=== PATIENT | female | born 1975 | race Caucasian/White ===

== ENCOUNTER 2024-12-13 09:51 | Outpatient (REF) | payer OTHER, SELFPAY ==
--- OUTSIDE RECORDS SUMMARY | 2024-12-13 11:56 | XMS_ITS | Continuity of Care Document ---
Author Organization [facility], , [facility], OFFICE Address [address] [place] [address] Care Team Providers Care Sky Diver Name Role Phone PHILIP ELLIOTT OTHER Unavailable ELLY DC Primary Care Provider [phone] FAHAD BROOKE Soil Fertility Extension Specialist Assessment No assessment recorded. Plan of Treatment Reminders Order Date Submit Date Provider Last Modified By Organization Details Last Modified Time Details Appointments LAB Follow-Up 2024 08:30A M [facility] Lab Not available Not available Not available Wellness Visit 30 2024 09:00A M ZOYA Stinson Not available Not available Not available Lab None recorded. Referral None recorded. Procedures None recorded. Surgeries None recorded. Imaging None recorded. Medication Orders None recorded. Patient TargetsNo targets recorded. Patient InstructionsNo instructions recorded. Reason for Referral None Reported. Problems Name Problem SNOMED Code Status Onset Date Resolution Date Notes Provider Name and Address Organization Details Recorded Time Menorrha ashley [id number] Completed 12/30/2023 ZOYA Stinson [address] [place] [address], [phone], [facility] 4 07:53:50 Recurren t urinary tract infectio n 449046478 Active 2023 ZOYA Stinson [address] [place] [address], [address], [facility] 4 07:55:06 Neutrope richie disorder 514267872 Active Not Available [facility] 3 03:12:28 Recurren t major depressi ve episodes 545614950 Active THEODORE Maria, [facility] 4 09:04:55 Cough 64793213 Completed 200709/21/2013 Not Available [facility] 3 02:01:08 Fever 502029572 Completed 200709/21/2013 Not Available [facility] 3 02:02:42 Premenst rual tension syndrome 26360858 Completed 12/30/2023 ZOYA Stinson [address] [place] [address], [phone], [facility] 4 07:54:08 Shoulder pain 14424125 Completed 09/21/2013 Not Available [facility] 3 02:01:02 Increase d frequenc y of urinatio n 552247639 Completed 200709/21/2013 Not Available [facility] 3 02:02:51 Measurem ent finding outside referenc e range 503702106 Completed 200709/21/2013 Not Available [facility] 3 02:03:25 Allergic rhinitis 55376550 Active 2005 Elly Dc MD [address] [place] [address], [address], [facility] 4 09:48:38 Left lower quadrant pain 708830790 Completed 200409/21/2013 Not Available [facility] 3 02:03:29 Hip pain 68842201 Completed 09/21/2013 Not Available [facility] 3 02:01:32 Vitamin D deficien cy 62098288 Active Not Available [facility] 3 03:12:28 Joint pain in ankle and foot Completed 09/21/2013 Not Available [facility] 3 02:01:26 Disorder of skeletal system 99387893 Completed 09/21/2013 Not Available [facility] 3 02:01:39 Atopic dermatit is 01892706 Active 2004 Not Available [facility] 3 03:12:28 On examinat ion - a rash Completed 200309/21/2013 Not Available [facility] 3 02:00:49 Thromboc ytopenic disorder 381132667 Active 2007 Lyn izaguirre [facility] 6 15:55:33 Osteopor osis 33361550 Active 2006 Most recent BMD with osteope makayla. Repeat due 05/2028 ZOYA Stinson [address] [place] [address], [address], [facility] 4 07:52:18 Systemic lupus erythema tosus 95381385 Active 2003 Lyn izaguirre [facility] 6 10:57:44 Female genital organ symptoms 553369372 Completed 200409/21/2013 Not Available [facility] 3 02:03:07 Osteocho ndropath y 28689612 Active Not Available [facility] 3 03:12:28 Acute maxillar y sinusiti s 84457836 Completed 200509/21/2013 Not Available [facility] 3 02:01:43 Pain in wrist 26419627 Completed 09/21/2013 Not Available [facility] 3 02:02:23 Otogenic otalgia 52642548 Completed 200309/21/2013 Not Available [facility] 3 02:03:18 Malaise and fatigue 775938412 Completed 200709/21/2013 Not Available [facility] 3 02:00:18 Cyst of ovary 37322789 Completed 200712/30/2023 ZOYA Stinson [address] [place] [address], [address], [facility] 4 07:52:35 Lupus erythema tosus 836248282 [facility] 08:06[facility]02 Problem Notes None recorded. Procedures Surgical History Date Name Laterality Status Provider Name and Address Organization Details Recorded Time 08/08/20 19 29213: Therapeutic Exercise completed Philip Payne, PT [address] [place], [address], [facility] 08/08/2019 10:07:38 08/08/20 19 Treatment and Advice completed Philip Payne, PT [address] [place], [address], [facility] 08/08/2019 10:07:54 08/01/20 19 60462: Therapeutic Exercise completed Philip Payne, PT [address] [place], [address], [facility] 08/02/2019 21:23:15 08/01/20 19 68370: Manual Therapy completed Philip Payne, PT [address] [place], [address], [facility] 08/02/2019 21:23:45 08/01/20 19 Treatment and Advice completed Philip Payne, PT [address] [place], [address], [facility] 08/01/2019 17:17:40 07/18/20 19 51627: Therapeutic Exercise completed Philip Payne, PT [address] [place], [address], [facility] 07/19/2019 08:34:24 07/18/20 19 Treatment and Advice completed Philip Payne, PT [address] [place], [address], [facility] 07/18/2019 17:14:40 07/06/20 19 76566: Therapeutic Exercise completed Philip Payne, PT [address] [place], [address], [facility] 07/06/2019 12:38:34 07/06/20 19 Treatment and Advice completed Philip Payne, PT [address] [place], [address], [facility] 07/06/2019 12:37:47 06/30/20 19 87127: Therapeutic Exercise completed Philip Payne, PT [address] [place], [address], [facility] 06/30/2019 11:32:04 06/30/20 19 Treatment and Advice completed Philip Payne, PT [address] [place], [address], [facility] 06/30/2019 10:14:16 06/22/20 19 59854: Therapeutic Exercise completed Philip Payne, PT [address] [place], [address], [facility] 06/22/2019 14:04:32 06/22/20 19 08390: Manual Therapy completed Philip Payne, PT [address] [place], [address], [facility] 06/22/2019 14:06:43 06/16/20 19 Physical Activity Counselling completed Philip Payne, PT [address] [place], [address], [facility] 06/17/2019 06:57:26 06/16/20 19 30365: PT Eval Low Complexity completed Philip Payne, PT [address] [place], [address], [facility] 06/17/2019 06:57:26 01/25/20 19 05703: Therapeutic Exercise completed Philip Payne, PT [address] [place], [address], [facility] 01/24/2019 14:29:08 01/25/20 19 Treatment and Advice completed Philip Payne, PT [address] [place], [address], [facility] 01/24/2019 14:25:22 01/05/20 19 57613: Therapeutic Exercise completed Philip Payne, PT [address] [place], [address], [facility] 01/04/2019 09:12:51 01/05/20 19 Treatment and Advice completed Philip Payne, PT [address] [place], [address], [facility] 01/04/2019 09:32:13 12/14/19 19 07274: Therapeutic Exercise completed Philip Payne, PT [address] [place], [address], [facility] 12/14/2018 09:45:05 12/14/19 19 Treatment and Advice completed Philip Payne, PT [address] [place], [address], [facility] 12/14/2018 09:31:33 12/01/19 19 Physical Activity Counselling completed Philip Payne, PT [address] [place], [address], [facility] 12/01/2018 11:03:33 12/01/19 19 16323: PT Eval Low Complexity completed Philip Payne, PT [address] [place], [address], [facility] 12/01/2018 11:03:33 12/01/19 19 Treatment and Advice completed Philip Payne, PT [address] [place], [address], [facility] 12/01/2018 11:06:11 04/07/20 17 POC Urinalysis Testing completed Judy Erazo [facility] 04/07/2017 10:15:39 03/31/20 17 POC Urinalysis Testing completed Kaitlin Paulson [facility] 03/31/2017 16:33:48 10/21/20 16 53289: Therapeutic Exercise completed Philip Payne, PT [address] [place], [address], [facility] 10/22/2016 06:43:34 10/21/20 16 Treatment and Advice completed Philip Payne, PT [address] [place], [address], [facility] 10/21/2016 10:35:08 09/30/20 16 20271: Therapeutic Exercise completed Philip Payne, PT [address] [place], [address], [facility] 09/30/2016 10:41:11 09/30/20 16 Treatment and Advice completed Philip Payne, PT [address] [place], [address], [facility] 09/30/2016 10:39:47 09/17/20 16 88649: PT Evaluation completed Philip Payne, PT [address] [place], [address], [facility] 09/17/2016 10:02:58 09/17/20 16 Physical Activity Counselling completed Philip Payne, PT [address] [place], [address], [facility] 09/17/2016 10:03:08 09/17/20 16 Treatment and Advice completed Philip Payne, PT [address] [place], [address], [facility] 09/17/2016 10:39:26 06/03/20 16 20694: Therapeutic Exercise completed Philip Payne, PT [address] [place], [address], [facility] 06/03/2016 09:38:05 06/03/20 16 58163: Manual Therapy completed Philip Payne, PT [address] [place], [address], [facility] 06/03/2016 09:38:13 05/13/20 16 50604: Therapeutic Exercise completed Philip Payne, PT [address] [place], [address], [facility] 05/13/2016 09:13:17 04/24/20 16 39831: PT Evaluation completed Philip Payne, PT [address] [place], [address], [facility] 04/24/2016 09:39:32 04/23/20 12 Greater Trochanteric Bursa Steroid Injection completed Elly Dc MD [address] [place], [address], [facility] 04/23/2012 08:27:31 05/30/20 10 Treatment and Advice completed Kitty Verma [address] [place], [address], [facility] 05/30/2010 18:26:06 Imaging Results None recorded. Procedure Notes None recorded. Medical Equipment None Reported. Allergies Allergen ID Allergen Name Allergen Category Reaction Reaction Severity Criticality Documentation Date Start Date Code Code System Note Provider Name and Address Organization Details Recorded Time 1393 aspirin medicatio n rash Not available Not available 12/12/2008 1191 RxNorm ??? Not Available [facility] 1 06:05:20 Medications Name Sig Start Date Stop Date Status Note LastModified by Organization Details LastModified Time prednison e 10 mg tabs 07/27 completed Not Available Not Available Not Available tizanidin e hydrochlo ride 4 mg tabs 07/27 completed Not Available Not Available Not Available betametha sone dipropion ate 0.05 % crea 06/15 completed duplicat e Not Available Not Available Not Available bupropion hydrochlo ride er (sr) 150 mg tb12 11/09 completed Not Available Not Available Not Available cyclobenz aprine hydrochlo ride 10 mg tabs 07/27 completed Not Available Not Available Not Available bupropion hcl sr 150 mg tb12 11/12 completed Not Available Not Available Not Available ibuprofen 800 mg tabs 07/27 completed Not Available Not Available Not Available hydroxych loroquine sulfate 200 mg tabs 11/09 completed Not Available Not Available Not Available gabapenti n 100 mg caps 07/27 completed Not Available Not Available Not Available fluconazo le 150 mg tabs 11/09 completed Not Available Not Available Not Available naproxen 500 mg tabs 07/27 completed Not Available Not Available Not Available prednison e 1 mg tabs Takin 2.5 tabs a day 03/12 completed Not Available Not Available Not Available cyclobenz aprine 10 mg tablet TAKE 1 TABLET BY MOUTH EVERYDAY AT BEDTIME 11/09 completed Not Available Not Available Not Available amoxicill in 500 mg capsule TAKE ONE CAPSULE BY MOUTH EVERY 12 HOURS FOR 7 DAYS 02/28 completed Not Available Not Available Not Available fluconazo le 100 mg tablet TAKE 2 TABLETS BY MOUTH FOR 1 DAY THEN TAKE 1 DAILY FOR 9 DAYS 07/18 completed Not Available Not Available Not Available clotrimaz ole 10 mg sae ALLOW 1 SAE TO DISSOLVE SLOWLY IN THE MOUTH 5 TIMES DAILY FOR 14 DAYS active Not Available Not Available No t Available bupropion HCl SR 150 mg tablet,12 hr sustained -release TAKE 1 TABLET BY MOUTH EVERY DAY DIRECTED 04/17 completed Not Available Not Available Not Available nystatin 100,000 unit/mL oral suspensio n TAKE 5ML BY MOUTH 4 TIMES A DAY FOR 7 DAYS 12/11 completed Not Available Not Available Not Available Drisdol 1,250 mcg (50,000 unit) capsule Take 1 capsule every week by oral route. 2009 active Not Available Not Available Not Avai lable ibuprofen 800 mg tablet TAKE 1 TABLET BY MOUTH 3 TIMES A DAY WITH MEALS 07/27 completed Not Available Not Available Not Available Lidocaine Viscous 2 % mucosal solution Take 15 mL every 3 hours by oral route as needed for 7 days. 09/18 completed Not Available Not Available Not Available tizanidin e 4 mg tablet TAKE 1 TABLET BY MOUTH EVERY 6 HOURS NEEDED 07/27 completed Not Available Not Available Not Available fluconazo le 150 mg tablet Take 1 tablet by oral route. 10/02 completed finished course 08/11/23 Not Available Not Available Not Available benzonata te 200 mg capsule TAKE ONE CAPSULE BY MOUTH 3 TIMES A DAY NEEDED 03/31 completed Not Available Not Available Not Available citalopra m 10 mg tablet Take 1 tablet every day by oral route. 2009 active Not Available Not Available Not Avai lable prednison e 20 mg tablet TAKE 1 TABLET BY MOUTH EVERY DAY WITH FOOD OR MILK 12/11 completed Not Available Not Available Not Available alendrona te 70 mg tablet Take 1 tablet every week by oral route. 2010 active Not Available Not Available Not Avai lable prednison e 5 mg tablet TAKE DIRECTED WITH FOOD OR MILK (2 TABS DAILY, DECREASE BY 1/2 TAB EVERY 2 WEEKS DIRECTED ) 12/11 completed Not Available Not Available Not Available clobetaso l 0.05 % topical cream Apply a thin layer by topical route 2 times per day to the affected area(s) 11/02 completed Not Available Not Available Not Available itraconaz ole 10 mg/mL oral solution Take 20 mL every day by oral route for 7 days. 01/30 completed Not Available Not Available Not Available triamcino lone acetonide 0.5 % topical ointment APPLY A THIN LAYER TO THE AFFECTED AREA(S) BY TOPICAL ROUTE 1 TIMES PER DAY AT NIGHT X 14 DAYS ONLY 07/18 completed prn Not Available Not Available Not Available ciproflox acin 250 mg tablet TAKE 1 TABLET BY MOUTH EVERY 12 HOURS UNTIL FINISHED 06/11 completed Not Available Not Available Not Available sulfameth oxazole 800 mg-trimet hoprim 160 mg tablet TAKE 1 TABLET BY MOUTH EVERY 12 HOURS FOR 7 DAYS 12/19 completed Not Available Not Available Not Available amoxicill in 500 mg tablet Take 1 tablet 3 times a day by oral route for 10 days. 05/26 completed Not Available Not Available Not Available meloxicam 7.5 mg tablet Take 1 tablet every day by oral route. 03/10 completed PRN Not Available Not Available Not Available oxycodone -acetamin ophen 5 mg-325 mg tablet active Not Available Not Available Not Available terbinafi ne HCl 250 mg tablet TAKE 1 TABLET BY MOUTH EVERY DAY FOR 10 DAYS 11/10 completed Not Available Not Available Not Available propranol ol 10 mg tablet TAKE 2 TABLETS BY MOUTH TWICE A DAY 12/11 completed Not Available Not Available Not Available methenami ne hippurate 1 gram tablet TAKE 1 TABLET BY MOUTH TWICE A DAY active Not Available Not Available No t Available Claritin- D 24 Hour 10 mg-240 mg tablet,ex tended release Take 1 tablet every day by oral route. 2018 active 12 hour- PRN Not Available Not Available Not Available prednison e 1 mg tablet TAKE 1 TABLET BY MOUTH EVERY DAY 04/17 completed Not Available Not Available Not Available cephalexi n 500 mg capsule TAKE 1 CAPSULE BY MOUTH TWICE A DAY FOR 7 DAYS 12/19 completed STARTED YESTERDA Y 10/28/22 JMM/ Not Available Not Available Not Available ferrous sulfate 325 mg (65 mg iron) tablet TAKE 1 TABLET(S ) EVERY DAY BY ORAL ROUTE. active Not Available Not Available No t Available nystatin 100,000 unit/gram topical cream APPLY TO THE AFFECTED AREA(S) BY TOPICAL ROUTE 2 TIMES PER DAY 12/12 completed Not Available Not Available Not Available Rituxan 10 mg/mL concentra te,intrav enous Inject by intraven ous route. 09/18 completed Not Available Not Available Not Available Anaprox DS 550 mg tablet 2007 active Take 1.00 tabs twice daily as needed Not Available Not Available Not Available bupropion HCl 75 mg tablet TAKE 1 TABLET BY MOUTH EVERY DAY FOR 30 DAYS 04/17 completed Not Available Not Available Not Available betametha sone dipropion ate 0.05 % topical cream APPLY A THIN LAYER TO THE AFFECTED AREA(S) BY TOPICAL ROUTE ONCE DAILY 07/27 completed Not Available Not Available Not Available hydroxyzi ne HCl 25 mg tablet TAKE 1 TO 2 TABLETS BY MOUTH EVERY DAY AT BEDTIME NEEDED FOR ITCH 07/18 completed haven't needed yet Not Available Not Available Not Available gabapenti n 100 mg capsule TAKE 1 CAPSULE BY MOUTH EVERY DAY AT BEDTIME FOR 7 DAYS MAY INCREASE TO 2 CAPSSULE IF NO IMPROVEM ENT active Not Available Not Available No t Available nystatin 100,000 unit/gram topical powder APPLY TO AFFECTED AREA TWICE A DAY completed Not Available Not Available Not Available hydroxych loroquine 200 mg tablet TAKE 1 & 1/2 TABLET BY MOUTH EVERY DAY active Not Available Not Available No t Available estradiol 0.01% (0.1 mg/gram) vaginal cream not using this yet 07/18 completed Not Available Not Available Not Available methylpre dnisolone 4 mg tablets in a dose pack 12/12 completed Take 1.00 tabs daily Not Available Not Available Not Available ketoconaz ole 2 % topical cream APPLY TOPICALL Y TO AFFECTED AREA EVERY DAY FOR 30 DAYS completed PRN Not Available Not Available Not Available fluticaso ne propionat e 50 mcg/actua tion nasal spray,sully pension 1 SPRAY EACH NOSTRIL EVERY DAY 09/29 completed Not Available Not Available Not Available itraconaz ole 100 mg capsule TAKE 2 CAPSULES BY MOUTH EVERY DAY FOR 14 DAYS active Not Available Not Available No t Available naproxen 500 mg tablet TAKE 1 TABLET BY MOUTH TWICE A DAY NEEDED 04/17 completed Not Available Not Available Not Available amoxicill in 875 mg-potass ium clavulana te 125 mg tablet TAKE 1 TABLET(S ) EVERY 12 HOURS BY ORAL ROUTE FOR 10 DAYS. 03/31 completed Not Available Not Available Not Available Actonel 35 mg tablet Take 1 tablet every week by oral route for 90 days. 2008 active To [facility] Not Available Not Available Not Available Denta 5000 Plus 1.1 % cream 09/16 completed Not Available Not Available Not Available escitalop alvarez 10 mg tablet TAKE 1 TABLET BY MOUTH EVERY DAY 12/12 completed Not Available Not Available Not Available Vitamin D3 25 mcg (1,000 unit) capsule 1 po qd 09/29 completed pt taking 2000unit Not Available Not Available Not Available cyclobenz aprine 5 mg tablet TAKE 1 TO 2 TABLETS BY MOUTH 3 TIMES A DAY FOR 7 DAYS 11/07 completed Not Available Not Available Not Available escitalop alvarez 5 mg tablet TAKE 1 TABLET BY MOUTH EVERY DAY 01/17 completed Not Available Not Available Not Available calcium 315 mg (as citrate)- vitamin D3 5 mcg (200 unit) tablet active Not Available Not Available Not Available nitrofura ntoin monohydra te/macroc rystals 100 mg capsule TAKE 1 CAPSULE BY MOUTH EVERY DAY NEEDED 12/19 completed Not Available Not Available Not Available chlorhexi dine gluconate 0.12 % mouthwash Place 15 mL twice a day by mucous membrane route. 12/12 completed Not taking Not Available Not Available Not Available iron 11/02 completed every 3 days Not Available Not Available Not Available rituximab active Not Available Not Yudith ilable Not Available multivita min active qd Not Available Not Available Not Available Calcium 500 09/16 completed Not Available Not Available Not Available Calcium Magnesium plus D 01/24 completed Not Available Not Available Not Available blood pressure test kit-mediu m cuff USE DIRECTED 04/23 completed Not Available Not Available Not Available Vitamin D3 50 mcg (2,000 unit) capsule Take 1 capsule every day by oral route. active Not Available Not Available No t Available nitrofura ntoin 100 mg tablet Take 1 tablet every day by oral route as needed. 04/17 completed prescrib ed by [facility] Not Available Not Available Not Available Claritin- D 11/07 completed Not Available Not Available Not Available Rhinocort Allergy 32 mcg/actua tion nasal spray Take 1 spray twice a day by nasal route. 12/01 completed PRN Not Available Not Available Not Available Paxlovid 300 mg (150 mg x 2)-100 mg tablets in a dose pack TAKE 2 TABLETS (NIRMATR RAS) AND TAKE 1 TABLET (RITONAV IR) BY MOUTH TWICE A DAY FOR 5 DAYS 01/01 completed Not Available Not Available Not Available Vitals Date Recorded Body height Body mass index (BMI) Body weight Oxygen saturation Oxygen saturation in Arterial blood by Pulse oximetry Heart rate Body temperature Systolic blood pressure Diastolic blood pressure Provider Name and Address Organization Details Last Updated DateTime 5 152.4 cm 25.4 kg/m2 78334.0 1 g 98 % 98 % 99 /min 98.1 [degF] 110 mm[Hg] 66 mm[Hg] Tara Teran [facility] 5 16:23:59 Social History Question Answer Notes LastModified by Organizat ion Details LastModified Time Tobacco Smoking Status Never Smoker MOISES Garcia, [facility] 12/19/2022 09:11:24 What Is Your Level Of Alcohol Consumption? Occasional 0-1 Drink A Week Information not available 12/11/2020 Do You Wear A Helmet When Biking? Yes Information not available 12/12/2021 What Is Your Level Of Caffeine Consumption? Occasional Information not available 12/11/2020 How Much Tobacco Do You Chew? None [email or web address] Information not available 09/18/2011 Are You Currently Employed? Yes Information not available 12/12/2021 What Type Of Diet Are You Following? VEGETARIAN Gluten Free Fish, Chicken Pork. [email or web address] Information not available 12/19/2022 Which Illicit Or Recreational Drugs Have You Used? None [email or web address] Information not available 09/07/2012 Do You Or Have You Ever Used E-cigarettes Or Vape? Never Used Electronic Cigarettes [email or web address] Information not available 03/25/2020 Education Post Graduate [email or web address] Information not available 12/01/2022 What Is The Highest Grade Or Level Of School You Have Completed Or The Highest Degree You Have Received? [id number] Information not available 12/12/2021 What Is Your Occupation? [employer] Information not available 09/29/2017 Have There Been Any Changes To Your Family Or Social Situation? No Information not available 12/31/2023 How Many Days In The Past Year Have You Had A Heavy Drinking Consumption (4+ Female, 5+ Male)? 0 [email or web address] Information not available 12/01/2022 Are There Any Guns Present In Your Home? No Information not available 12/12/2021 Do You Use Insect Repellent Routinely? Yes Information not available 12/12/2021 Live Alone Or With Others? With Others [email or web address] Information not available 12/01/2022 Marital Status [email or web address] Informatio n not available 12/01/2022 Mosquito Repellent Used Routinely Yes [email or web address] Information not available 12/01/2022 What Was The Date Of Your Most Recent Tobacco Screening? 11/23/2024 [email or web address] Information not available 11/23/2024 How Many Children Do You Have? 0 [email or web address] [id number] Information not available 09/18/2011 What Is Your Relationship Status? Information not available 12/31/2023 Do You Use Your Seat Belt Or Car Seat Routinely? Yes Information not available 12/12/2021 Seat Belts Used Routinely Yes [email or web address] Information not available 12/01/2022 Smoke Alarm In Home Yes [email or web address] Information not available 12/01/2022 Do You Have Smoke And Carbon Monoxide Detectors In Your Home? Yes Information not available 12/12/2021 Are You Passively Exposed To Smoke? No Information not available 12/12/2021 Do You Or Have You Ever Used Smokeless Tobacco? Never Used Smokeless Tobacco Information not available 12/01/2019 How Much Tobacco Do You Smoke? No [email or web address] Information not available 09/18/2011 General Stress Level Medium [email or web address] Information not available 12/01/2022 Do You Use Any Illicit Or Recreational Drugs? No Information not available 12/12/2021 Do You Use Sunscreen Routinely? Yes [email or web address] Information not available 09/18/2011 Do You Or Have You Ever Used Any Other Forms Of Tobacco Or Nicotine? No [email or web address] Information not available 12/01/2022 Sex: Female Functional Status Question Answer Note LastModified by Organization D etails LastModified Time What is your exercise level? Moderate Information not available 12/12/2021 Mental Status None recorded. Family History Relationship Description Onset Age of this Age Resolved Age Notes LastModified by Organization Details LastModified Time Mother Osteoporosis mgump Not availab le 03/23/2015 21:07:25 Father Diabetes mellitus mgump Not available 2014 21:07:25 Father Malignant neoplasm of urinary bladder [email or web address] Not available 2022 09:30:11 Sister Benign hypertension [email or web address] Not available 09:30:11 Medical History Condition Response HEMATOLOGIC Y Osteopenia Y Systemic Lupus E Y Gynecological History Statement/Question Response Menses Monthly N Current Control Method Partner Vas ectomy Date of LMP 07/01/2021 LMP Approximate Obstetrics History GPAL:G 0 P 0 0 0 0 Immunizations Vaccine Type Date Status Note Provider Nam e and Address Organization Details Recorded Time Tdap 3 completed Not Available [facility] 11/19/2019 02:32:25 Influenza, split virus, trivalent, preservative 0 completed Not Available [facility] 11/19/2019 02:33:03 Influenza, split virus, quadrivalent, PF 7 completed Not Available [facility] 11/19/2019 02:22:08 COVID-19, mRNA, LNP-S, PF, 30 mcg/0.3 mL dose 1 completed Carmita Oliveros LPN [facility], [facility] 02/04/2021 07:38:08 COVID-19, mRNA, LNP-S, PF, 30 mcg/0.3 mL dose 1 completed MOISES Wang, [facility] 07/08/2024 08:27:06 Tdap 3 completed ZOYA Stinson [address] [place] [address], [id number], [facility] [place]2023 14:36:47 COVID-19, mRNA, LNP-S, PF, 30 mcg/0.3 mL dose 1 completed MOISES Wang, [facility] 07/08/2024 08:27:06 COVID-19, mRNA, LNP-S, PF, 30 mcg/0.3 mL dose [facility] 08:27:06 COVID-19, mRNA, LNP-S, PF, 30 mcg/0.3 mL dose 2 completed [facility]all[facility]inton [facility] 08/26/2022 15:48:26 COVID-19, mRNA, LNP-S, bivalent, PF, 10 mcg/0.2 mL 3 completed Pascale Cade [facility] 03/16/2023 10:44:24 zoster recombinant 3 completed Luisa Conroy [facility] 07/08/2024 08:27:06 zoster recombinant 3 [facility]08[facility]2024 08:27:06 COVID-19 mRNA, bivalent, original/Omicron BA.1, Non-US Vaccine (Spikevax Bivalent), Moderna 3 completed Anette Alfaro [facility] 04/17/2023 08:33:05 zoster recombinant 3 [facility]/08/2024 08:27:06 COVID-19, mRNA, LNP-S, PF, 30 mcg/0.3 mL dose, cici-sucrose 2 [facility]/08/2024 08:27:06 COVID-19, mRNA, LNP-S, bivalent, PF, 50 mcg/0.5 mL or 25mcg/0.25 mL dose 3 [facility]/08/2024 08:27:06 COVID-19, mRNA, LNP-S, bivalent, PF, 30 mcg/0.3 mL dose 2 [facility]/08/2024 08:27:06 COVID-19, mRNA, LNP-S, PF, cici-sucrose, 30 mcg/0.3 mL 3 completed Luisa Rafiq [facility]/08/2024 08:27:06 SARS-COV-2 (COVID-19) vaccine, UNSPECIFIED 4 completed Luisa Rafiq [facility] 07/08/2024 08:27:32 Past Encounters Encounter ID Performer Location Encounter Start Date Encounter Closed Date Diagnosis/Indication Diagnosis SNOMED-CT Code Diagnosis ICD10 Code Diagnosis Note [id number] DO CASSIDY NAIDU, [facility], [address] [place] [address] 11/23/2024 16:15:11 11/25/2024 08:47:05 Burst blood vessel [id number] R58 right thumb pain and discolorat ion likely from pressure applicatio n when changing wires on a pottery Localized digital hemorrhage Sudden thumb swelling and discolorat ion likely from small vessel rupture. Condition improving. Lupus and ITP may contribute to capillary fragility, but platelet count normal.- Apply ice for 15 minutes, three times daily.- Elevate hand, gently massage thumb.- Apply moisturize r to thumb.- Avoid direct pressure.- Monitor for worsening symptoms or systemic signs. 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 Normal platelet count. No active ITP. Normal kidney function.- Monitor platelet counts and lupus activity.- Follow up with rheumatdiana pastor on December 13. Health Concerns Section Related Observation LastModified by Organization Detai ls LastModified Time None Recorded Concern Status LastModified by Organization Details LastModified Time None Recorded Payers Encounter Date Sequence Insurance Name Policy Number Policy Umaña Covered Member ID Umaña Member ID Guarantor Name 11/23/2024 1 [facility] [place] [id number] Brionna Champion [id number] Brionna Champion Notes Date Note Type Note Provider Name and Address Organization Details Recorded Time 11/23/2024 text/html 11/23/24- Pt here today for a same day visitstated noticed, swelling, pressure, skin discolorationno known injuries. History of Present IllnessThe patient, with a history of lupus and ITP, presents with sudden swelling and discoloration of their finger. The finger turned black and felt numb initially, but the color has since improved to purple and the numbness has resolved. 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 They deny any new medications and have no known allergies except to aspirin. 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 The patient's last platelet count in August of the previous year was 315, which is within normal range. ANNA VOGEL, DO [address] [place] [address], [phone], [facility] [place] 11/24/2024 22:55:01 OBGyn Episode No OBEpisode recorded.
--- OUTSIDE RECORDS SUMMARY | 2024-12-13 11:57 | XMS_ITS | Data Portability ---
Author Organization [facility], , [facility] Address [address] [place] [address] Care Team Providers Care Automobile Rental Clerk Name Role Phone PHILIP ELLIOTT OTHER Unavailable ELLY DC Primary Care Provider FAHAD BROOKE Napper Grinder Assessment Encounter Date Assessment Date Assessment LastModified by Organization Details LastModified Time 11/10/2023 11/10/2023 My total time spent today documenting and providing coordinated care for this patient is 31 minutes I have reviewed, collected, and updated relevant history and performed a physical exam. I have coordinated care with IBH, Nutrition, Specialist and or family members I have reviewed labs, x-rays and/or specialty notes I have interpreted new studies including EKG, Holter and/or xray Below is my assessment and plan for this patient? s care today. moderate, with new meds started persistent and worsening chronic problem [email or web address] Not available 11/10/2023 10:38:23 Plan of Treatment Reminders Order Date Submit Date Provider Last Modified By Organization Details Last Modified Time Details Appointments LAB Follow-Up 2024 08:30A M [facility] Lab Not available Not available Not available Wellness Visit 30 2024 09:00A M ZOYA Stinson Not available Not available Not available Lab rapid strep group A, throat 2023 024 [facility], [address] [facility], [place], [address], 06/24/2024 13:01:52 Referral physical therapist referral 2023 024 [email or web address] [facility], [address], [place], [address], 12/31/2023 13:44:17 Procedures None recorded. Surgeries None recorded. Imaging MAMMO, screening , tomosynth esis, bilateral - 2nd Look Consult/D iag Mammo/US Breast/Gu ided Asp/Breas t Bx/Clip Placement , as clinicall y indicated . 2023 024 [facility] (Imaging), [address], [place], [address], 03/15/2024 10:51:22 XR, hip + pelvis, unilatera l, 2 or 3 view 2023 024 [facility] (Im[facility]), [address], [place], [address], 01/12/2024 10:07:10 bone density 2023 024 [facility], All Locations, [place], [address], 05/09/2024 16:35:22 Medication Orders hydroxyzi ne HCl 25 mg tablet 2023 024 [facility]acy #[id number], [address] [place], [address], 07/18/2024 10:39:25 triamcino lone acetonide 0.5 % topical ointment 2023 024 [facility]acy #0447, [address] [place], [address], 07/18/2024 10:39:50 fluconazo le 100 mg tablet 2023 024 dcaer [facility]/Pharmacy #[id number], [address] [place], [address], 07/18/2024 10:38:55 itraconaz ole 100 mg capsule 2023 024 [facility]acy #[id number], [address] [place], [address], 07/18/2024 10:55:44 Patient TargetsNo targets recorded. Patient Instructions Encounter Date Encounter Id Patient Instructions Last Modified By Organization Details Last Modified Time 12/31/2023 [id number] well visit, wome n 50 to 65: care instructions anika Not available 12/31/2023 13:06:19 Reason for Referral Physical Therapist Referral for Pain in right hip joint Referring Physician: Oliva Ho, Family Medicine, Encounter Date: 12/31/2023 Results Created Date Observation Date Name Description Value Unit Range Abnormal Flag Note LastModifiedBy Organization Detail LastModifiedTime 05/12/20 24 05/12/2024 CBC WBC 3.15 K/? ? ?L 3.98-1 0.04 low Not Available [address], [address], 05/12/2024 11:12:10 05/12/20 24 05/12/2024 CBC RBC 4.01 M/? ? ?L 3.93-5 .22 Not Available [address], [address], 05/12/2024 11:12:10 05/12/20 24 05/12/2024 CBC HGB 12.3 g/dL 11.2-1 5.7 Not Available [address], [address], 05/12/2024 11:12:10 05/12/20 24 05/12/2024 CBC HCT 36.6 % 34.1-4 4.9 Not Available [address], [address], 05/12/2024 11:12:10 05/12/20 24 05/12/2024 CBC MCV 91.3 fL 79.4-9 4.8 Not Available [address], [address], 05/12/2024 11:12:10 05/12/20 24 05/12/2024 CBC MCH 30.7 pg 25.6-3 2.2 Not Available [address], [address], 05/12/2024 11:12:10 05/12/20 24 05/12/2024 CBC MCHC 33.6 g/dL 32.2-3 5.5 Not Available [address], [address], 05/12/2024 11:12:10 05/12/20 24 05/12/2024 CBC plt 290 K/? ? ?L 182-36 9 Not Available [address], [address], 05/12/2024 11:12:10 05/12/20 24 05/12/2024 CBC MPV 10.8 fL 9.4-12 .3 Not Available [address], [address], 05/12/2024 11:12:10 05/12/20 24 05/12/2024 CBC neut% 45.7 % 34.0-7 1.1 Not Available [address], [address], 05/12/2024 11:12:10 05/12/20 24 05/12/2024 CBC neut# 1.44 1.56-6 .13 low SREV= Slide revie wed by [facility]. Not Available [address], [address], 05/12/2024 11:12:10 05/12/20 24 05/12/2024 CBC lymph % 36.8 % 19.3-5 1.7 Not Available [address], [address], 05/12/2024 11:12:10 05/12/20 24 05/12/2024 CBC lymph # 1.16 K/? ? ?L 1.18-3 .74 low Not Available [address], [address], 05/12/2024 11:12:10 05/12/20 24 05/12/2024 CBC mono% 14.0 % 4.7-12 .5 high Not Available [address], [address], 05/12/2024 11:12:10 05/12/20 24 05/12/2024 CBC mono# 0.44 0.24-0 .56 Not Available [address], [address], 05/12/2024 11:12:10 05/12/20 24 05/12/2024 CBC eo% 2.2 % 0.7-5. 8 Not Available [address], [address], 05/12/2024 11:12:10 05/12/20 24 05/12/2024 CBC eo# 0.07 0.04-0 .36 Not Available [address], [address], 05/12/2024 11:12:10 05/12/20 24 05/12/2024 CBC baso% 1.0 % 0.1-1. 2 Not Available [address], [address], 05/12/2024 11:12:10 05/12/20 24 05/12/2024 CBC baso# 0.03 0.00-0 .08 Not Available [address], [address], 05/12/2024 11:12:10 05/12/20 24 05/12/2024 CBC RDW-CV 11.9 % 11.7-1 4.4 Not Available [address], [address], 05/12/2024 11:12:10 05/12/20 24 05/12/2024 CBC Ig% 0.300 % 0.000- 1.500 Ig % >0.5 Indic ates possi ble Left Shift Not Available [address], [address], 05/12/2024 11:12:10 05/12/20 24 05/12/2024 CBC Ig# 0.010 0.000- 0.093 Not Available [address], [address], 05/12/2024 11:12:10 05/12/20 24 05/12/2024 CBC NRBC% 0.0 % 0.0-0. 2 Not Available [address], [address], 05/12/2024 11:12:10 05/12/20 24 05/12/2024 CBC NRBC# 0.000 0.000- 0.012 Not Available [address], [address], 05/12/2024 11:12:10 05/12/20 24 05/12/2024 ESR sed rate 10.0 0.0-15 .0 Not Available [address], [address], 05/12/2024 11:33:07 05/12/20 24 05/13/2024 COMP. METAB OLIC PANEL glucose 117 mg/dL 70-100 high Not Available [address], [address], 05/13/2024 16:11:00 05/12/20 24 05/13/2024 COMP. METAB OLIC PANEL BUN 12 mg/dL 7-18 Not Available [address], [address], 05/13/2024 16:11:00 05/12/20 24 05/13/2024 COMP. METAB OLIC PANEL creatinine 0.8 mg/dL 0.8-1. 3 Not Available [address], [address], 05/13/2024 16:11:00 05/12/20 24 05/13/2024 COMP. METAB OLIC PANEL B/C 15.0 ratio Not Available [address], [address], 05/13/2024 16:11:00 05/12/20 24 05/13/2024 COMP. METAB OLIC PANEL GFR >=60ML /MIN mL/mi n normal >=60m L/min - Piper l or midly reduc ed <60mL /min- Decre ased kidne y funct ion <15mL /min - Kidne y failu re [facility] calcu lates estim ated Glome rular Filtr ation Rate (eGFR ) using the Chron ic Kidne y Disea se Epide miolo gy Colla borat ion (CKD- EPI) Equat ion (Sunshine jorge et. al 2020) as recom anson d by the Natio nal Kidne y Found ation . eGFR is based on age, serum creat inine , and sex. CKD-E PI does not calcu late eGFR by race, does not apply to child victoriano (age <18 years ), and shoul d not be used in pregn luba. Not Available [address], [address], 05/13/2024 16:11:00 05/12/20 24 05/13/2024 COMP. METAB OLIC PANEL sodium 140 mmol/ L 136-14 5 Not Available [address], [address], 05/13/2024 16:11:00 05/12/20 24 05/13/2024 COMP. METAB OLIC PANEL potassium 3.8 mmol/ L 3.5-5. 1 Not Available [address], [address], 05/13/2024 16:11:00 05/12/20 24 05/13/2024 COMP. METAB OLIC PANEL chloride 102 mmol/ L 96-107 Not Available [address], [address], 05/13/2024 16:11:00 05/12/20 24 05/13/2024 COMP. METAB OLIC PANEL anion gap 7.7 5.0-15 .0 Not Available [address], [address], 05/13/2024 16:11:00 05/12/20 24 05/13/2024 COMP. METAB OLIC PANEL CO2 30 mmol/ L 21-32 Not Available [address], [address], 05/13/2024 16:11:00 05/12/20 24 05/13/2024 COMP. METAB OLIC PANEL calcium 9.2 mg/dL 8.5-10 .3 Not Available [address], [address], 05/13/2024 16:11:00 05/12/20 24 05/13/2024 COMP. METAB OLIC PANEL total protein 7.2 g/dL 6.4-8. 2 Not Available [address], [address], 05/13/2024 16:11:00 05/12/20 24 05/13/2024 COMP. METAB OLIC PANEL albumin 4.2 g/dL 3.4-5. 0 Not Available [address], [address], 05/13/2024 16:11:00 05/12/20 24 05/13/2024 COMP. METAB OLIC PANEL globulin 3.0 g/dL Not Available [address], [address], 05/13/2024 16:11:00 05/12/20 24 05/13/2024 COMP. METAB OLIC PANEL A/G 1.4 ratio 0.8-2. 0 Not Available [address], [address], 05/13/2024 16:11:00 05/12/20 24 05/13/2024 COMP. METAB OLIC PANEL total bilirubin 0.30 mg/dL 0.00-1 .00 Not Available [address], [address], 05/13/2024 16:11:00 05/12/20 24 05/13/2024 COMP. METAB OLIC PANEL AST 23 U/L 0-37 Not Available [address], [address], 05/13/2024 16:11:00 05/12/20 24 05/13/2024 COMP. METAB OLIC PANEL ALT 39 U/L 6-63 Not Available [address], [address], 05/13/2024 16:11:00 05/12/20 24 05/13/2024 COMP. METAB OLIC PANEL alk. phos. 77 U/L 50-136 Not Available [address], [address], 05/13/2024 16:11:00 05/12/20 24 05/13/2024 COMPL EMENT C3 complement C3 103 mg/dL 90-207 Not Available [address], [address], 05/13/2024 16:24:12 05/12/20 24 05/13/2024 COMPL EMENT C4 complement C4 10.3 mg/dL 17.4-5 2.2 low Not Available [address], [address], 05/13/2024 16:24:13 05/12/20 24 05/13/2024 C-VAHID CTIVE PROTE IN (RCRP ) C-reactive protein (rcrp) 2.8 mg/dL 0.5-9. 0 Not Available [address], [address], 05/13/2024 16:24:13 05/12/20 24 05/20/2024 DNASE B ANTIB NÉSTOR dnase B antibody <95 U/mL <301 Not Available [facility] [address], [address], 05/20/2024 15:43:10 05/13/20 24 05/15/2024 URINA LYSIS , COMPL ETE W/REF LAKEISHA TO CULTU RE color YELLOW yellow normal Not Available [facility] [place] [facility] [address], [place], [address], 05/15/2024 12:28:40 05/13/20 24 05/15/2024 URINA LYSIS , COMPL ETE W/REF LAKEISHA TO CULTU RE appearance CLEAR clear normal Not Available [facility] [address], [place], [address], 05/15/2024 12:28:40 05/13/20 24 05/15/2024 URINA LYSIS , COMPL ETE W/REF LAKEISHA TO CULTU RE specific gravity 1.024 1.001- 1.035 normal Not Available [facility] [place] [facility] [address], [place], [address], 05/15/2024 12:28:40 05/13/20 24 05/15/2024 URINA LYSIS , COMPL ETE W/REF LAKEISHA TO CULTU RE pH 7.0 5.0-8. 0 normal Not Available [facility] [place] [facility] [address], [place], [address], 05/15/2024 12:28:40 05/13/20 24 05/15/2024 URINA LYSIS , COMPL ETE W/REF LAKEISHA TO CULTU RE glucose NEGATI VE negati ve normal Not Available [facility] [place] [facility] [address], [place], [address], 05/15/2024 12:28:40 05/13/20 24 05/15/2024 URINA LYSIS , COMPL ETE W/REF [place]IS[place] TO CULTU RE bilirubin NEGATI VE negati ve normal Not Available [facility] [place] [facility] [address], [place], [address], 05/15/2024 12:28:40 05/13/20 24 05/15/2024 URINA LYSIS , COMPL ETE W/REF [place] TO CULTU RE ketones NEGATI VE negati ve normal Not Available [facility] [place] [facility] [address], [place], [address], 05/15/2024 12:28:40 05/13/20 24 05/15/2024 URINA LYSIS , COMPL ETE W/REF [place] TO CULTU RE occult blood NEGATI VE negati ve normal Not Available [facility] [place] [facility] [address], [place], [address], 05/15/2024 12:28:40 05/13/20 24 05/15/2024 URINA LYSIS , COMPL ETE W/REF [place]IS[place] TO CULTU RE protein TRACE negati ve abnormal Not Available [facility] [place] [facility] [address], [place], [address], 05/15/2024 12:28:40 05/13/20 24 05/15/2024 URINA LYSIS , COMPL ETE W/REF [place] TO CULTU RE nitrite NEGATI VE negati ve normal Not Available [facility] [place] [facility] [address], [place], [address], 05/15/2024 12:28:40 05/13/20 24 05/15/2024 URINA LYSIS , COMPL ETE W/REF [place] TO CULTU RE leukocyte esterase TRACE negati ve abnormal Not Available [facility] [place] [facility] [address], [place], [address], 05/15/2024 12:28:40 05/13/20 24 05/15/2024 URINA LYSIS , COMPL ETE W/REF LAKEISHA TO CULTU RE WBC NONE SEEN /hpf < or = 5 normal Not Available [facility] [place] [facility] [address], [place], [address], 05/15/2024 12:28:40 05/13/20 24 05/15/2024 URINA LYSIS , COMPL ETE W/REF LAKEISHA TO CULTU RE RBC NONE SEEN /hpf < or = 2 normal Not Available [facility] [place] [facility] [address], [place], [address], 05/15/2024 12:28:40 05/13/20 24 05/15/2024 URINA LYSIS , COMPL ETE W/REF LAKEISHA TO CULTU RE squamous epithelial cells 0-5 /hpf < or = 5 Not Available [facility] [place] [facility] [address], [place], [address], 05/15/2024 12:28:40 05/13/20 24 05/15/2024 URINA LYSIS , COMPL ETE W/REF LAKEIS[place] TO CULTU RE bacteria NONE SEEN /hpf none seen normal Not Available [facility] [place] [facility] [address], [place], [address], 05/15/2024 12:28:40 05/13/20 24 05/15/2024 URINA LYSIS , COMPL ETE W/REF LAKEIS[place] TO CULTU RE hyaline cast NONE SEEN /lpf none seen normal Not Available [facility] [place] [facility] [address], [place], [address], 05/15/2024 12:28:40 05/13/20 24 05/15/2024 URINA LYSIS , COMPL ETE W/REF LAKEISHA TO CULTU RE Unknown Analyte See Below This urine was shauna zed for the prese nce of WBC, RBC, bacte christine, casts , and other forme d eleme nts. Only those eleme nts seen were repor bre. Not Available [facility] [place] [facility] [address], [place], [address], 05/15/2024 12:28:40 05/13/20 24 05/15/2024 URINA LYSIS , COMPL ETE W/REF LAKEISHA TO CULTU RE Unknown Analyte See Below CULTU RE INDIC ATED - RESUL TS TO FOLLO W Not Available [facility] [place] [facility] [address], [place], [address], 05/15/2024 12:28:40 05/13/20 24 05/15/2024 URINA LYSIS , COMPL ETE W/REF LAKEISHA TO CULTU RE culture, urine, routine CULTU RE, URINE , ROUTI NE Micro Numbe r: [id number] Test Statu s: Final Speci men Sourc e: Urine Speci men Quali ty: Adequ ate Resul t: Mixed genit al mily isola bre. These super ficia l bacte christine are not indic ative of a urina ry tract infec tion. No furth er organ ism ident ifica tion is warra nted on this speci men. If clini alfonzo indic ated, recol lect clean -catc h, mid-s tream urine and trans berta immed iatel y to Urine Cultu re Trans port Tube. Not Available [facility] [place] [facility] [address], [place], [address], 05/15/2024 12:28:40 05/31/20 24 05/31/2024 CREAT ININE creatinine 0.8 mg/dL 0.8-1. 3 Not Available [address], [place], [address], 05/31/2024 16:01:16 05/31/20 24 05/31/2024 CREAT ININE GFR >=60ML /MIN mL/mi n normal >=60m L/min - Piper l or midly reduc ed <60mL /min- Decre ased kidne y funct ion <15mL /min - Kidne y failu re [facility] calcu lates estim ated Glome rular Filtr ation Rate (eGFR ) using the Chron ic Kidne y Disea se Epide miolo gy Colla borat ion (CKD- EPI) Equat ion (Sunshine r et. al 2020) as recom anson d by the [employer]ie Webb y Found ation . eGFR is based on age, serum creat inine , and sex. CKD-E PI does not calcu late eGFR by race, does not apply to child victoriano (age <18 years ), and shoul d not be used in pregn luba. Not Available [address], [address], 05/31/2024 16:01:16 05/31/20 24 05/31/2024 AST AST 17 U/L 0-37 Not Available [address], [address], 05/31/2024 16:01:17 05/31/20 24 05/31/2024 ALT ALT 26 U/L 6-63 Not Available [address], [address], 05/31/2024 16:01:17 05/31/20 24 06/01/2024 DNA (DS) ANTIB NÉSTOR DNA (ds) antibody 2 IU/mL normal IU/mL Inter preta tion < or = 4 Negat cheryl 5-9 Indet ermin ate > or = 10 Posit cheryl Not Available [facility] [address], [place], [address], 06/01/2024 20:53:38 06/24/20 24 06/24/2024 POCST REP strep A POC NEGATI VE Not Available [facility] [address] [place] [address], [address], 06/24/2024 08:10:04 01/12/20 24 01/12/2024 XR, hip + pelvi s, unila teral , 2 or 3 view CLINIC AL HISTOR Y: Right hip pain. TECHNI QUE: Two views of the right hip were obtain ed. COMPAR ORALIA: None. FINDIN GS: There is no fractu re, sublux ation, or disloc ation. There is preser vation of the hip joint space. IMPRES MADIE: No acute bone abnorm ality. Bird Kern goldy: Josh Sen [facility] (Imaging) [address] [place], [address], 01/17/2024 15:15:46 03/15/20 24 03/15/2024 MAMMO , scree juan, tomos ynthe sis, bilat eral MAMMO, SCREEN , ELLIE, BILAT: 024. BI-RAD S: 1 CLINIC AL: 49-yea r old Female for Bilate ral Screen ing Mammog alvarez. No person al or first- degree family histor y of breast cancer . PRIOR EXAMS: Review ed previo us images from 2022 and 2012. MAMMOG ANAIS TECHNI QUE: 3D mammog anais (tomos ynthes is) and 2D mammog anais (C-vie w) images are genera bre. Images review ed with a CAD system . DENSIT Y B. There are scatte red areas of fibrog landul ar densit y. MAMMOG ANAIS FINDIN GS Bilate ral: No suspic ious mass, asymme try, microc alcifi cation , or other abnorm ality seen. CONCLU SIONNo eviden ce of malign luba. RECOMM ENDATI ONS Bilate ralAnn ual screen ing mammog anais. ADMINI STRATI VE: A lay summar y was mailed to your patien corey veloz the result s and recomm endati ons for follow -up. OVERAL L ASSESS MENT CATEGO RY BI-RAD S-1: Negati ve. The [employer] recomm ends annual screen ing mammog anais beginn ing at age 40 for women with averag e risk of breast cancer . ELECTR ONICAL LY SIGNED : Duong Rios ms, M.D. on 2023 at 10:50: 46 AM Bird kingn: Duong Rios ms [facility] (Im[facility]) [address] [place], [address], 03/16/2024 08:54:54 05/09/20 24 04/14/2024 bone densi ty No observ ation record ed. [address], [address], 05/09/2024 22:02:50 Result Notes None recorded. Problems Name Problem SNOMED Code Status Onset Date Resolution Date Notes Provider Name and Address Organization Details Recorded Time Elsy fraziera 490927161 Completed 12/30/2023 ZOYA Stinson [address] [place] [address], [address], [facility] 4 07:53:50 Recurren t urinary tract infectio n 830974488 Active 2023 ZOYA Stinson [address] [place] [address], [address], [facility] 4 07:55:06 Neutrope richie disorder 075129358 Active Not Available [facility] 3 03:12:28 Recurren t major depressi ve episodes 872258470 Active Gema Wallace LPN [facility], [facility] 4 09:04:55 Cough 51836111 Completed 200709/21/2013 Not Available [facility] 3 02:01:08 Fever 634810095 Completed 200709/21/2013 Not Available [facility] 3 02:02:42 Premenst rual tension syndrome 31367695 Completed 12/30/2023 ZOYA Stinson [address] [place] [address], [address], [facility] 4 07:54:08 Shoulder pain 38002376 Completed 09/21/2013 Not Available [facility] 3 02:01:02 Increase d frequenc y of urinatio n 223029787 Completed 200709/21/2013 Not Available [facility] 3 02:02:51 Measurem ent finding outside referenc e range 033616500 Completed 200709/21/2013 Not Available [facility] 3 02:03:25 Allergic rhinitis 12827355 Active 2005 Elly Dc MD [address] [place] [address], [address], [facility] 4 09:48:38 Left lower quadrant pain 291838901 Completed 200409/21/2013 Not Available [facility] 3 02:03:29 Hip pain 06545439 Completed 09/21/2013 Not Available [facility] 3 02:01:32 Vitamin D deficien cy 94549842 Active Not Available [facility] 3 03:12:28 Joint pain in ankle and foot Completed 09/21/2013 Not Available [facility] 3 02:01:26 Disorder of skeletal system 65204715 Completed 09/21/2013 Not Available [facility] 3 02:01:39 Atopic dermatit is 54201236 Active 2004 Not Available [facility] 3 03:12:28 On examinat ion - a rash Completed 200309/21/2013 Not Available [facility] 3 02:00:49 Thromboc ytopenic disorder 705986004 Active [address] [facility] 6 15:55:33 Osteopor osis 56033489 Active 2006 Most recent BMD with osteope makayla. Repeat due 05/2028 ZOYA Stinson [address] [place] [address], [address], [facility] 4 07:52:18 Systemic lupus erythema tosus 66687835 Active [address] [facility] 6 10:57:44 Female genital organ symptoms 167632962 Completed 200409/21/2013 Not Available [facility] 3 02:03:07 Osteocho ndropath y 08151344 Active Not Available [facility] 3 03:12:28 Acute maxillar y sinusiti s 41090383 Completed 200509/21/2013 Not Available [facility] 3 02:01:43 Pain in wrist 84935614 Completed 09/21/2013 Not Available [facility] 3 02:02:23 Otogenic otalgia 36396041 Completed 200309/21/2013 Not Available [facility] 3 02:03:18 Malaise and fatigue 197334757 Completed 200709/21/2013 Not Available [facility] 3 02:00:18 Cyst of ovary 59562401 Completed 200712/30/2023 ZOYA Stinson [address] [place], [address], [facility] 4 07:52:35 Lupus erythema tosus 707531047 [facility] 08:06:02 Problem Notes None recorded. Procedures Surgical History Date Name Laterality Status Provider Name and Address Organization Details Recorded Time 08/08/20 19 93252: Therapeutic Exercise completed Philip Payne, PT [address] [place], [address], [facility] 08/08/2019 10:07:38 08/08/20 Treatment and Advice completed Philip Payne, PT [address] [place], [address], [facility] 08/08/2019 10:07:54 08/01/20 19 82498: Therapeutic Exercise completed Philip Payne, PT [address] [place], [address], [facility] 08/02/2019 21:23:15 08/01/20 19 35593: Manual Therapy completed Philip Payne, PT [address] [place], [address], [facility] 08/02/2019 21:23:45 08/01/20 19 Treatment and Advice completed Philip Payne, PT [address] [place], [address], [facility] 08/01/2019 17:17:40 07/18/20 19 47285: Therapeutic Exercise completed Philip Payne, PT [address] [place], [address], [facility] 07/19/2019 08:34:24 07/18/20 19 Treatment and Advice completed Philip Payne, PT [address] [place], [address], [facility] 07/18/2019 17:14:40 07/06/20 19 96357: Therapeutic Exercise completed Philip Payne, PT [address] [place], [address], [facility] 07/06/2019 12:38:34 07/06/20 Treatment and Advice completed Philip Payne, PT [address] [place], [address], [facility] 07/06/2019 12:37:47 06/30/20 19 28081: Therapeutic Exercise completed Philip Payne, PT [address] [place], [address], [facility] 06/30/2019 11:32:04 06/30/20 19 Treatment and Advice completed Philip Payne, PT [address] [place], [address], [facility] 06/30/2019 10:14:16 06/22/20 19 33979: Therapeutic Exercise completed Philip Payne, PT [address] [place], [address], [facility] 06/22/2019 14:04:32 06/22/20 19 37225: Manual Therapy completed Philip Payne, PT [address] [place], [address], [facility] 06/22/2019 14:06:43 06/16/20 19 Physical Activity Counselling completed Philip Payne, PT [address] [place], [address], [facility] 06/17/2019 06:57:26 06/16/20 19 [id number]: PT Eval Low Complexity completed Philip Payne, PT [address] [place], [address], [facility] 06/17/2019 06:57:26 01/25/20 19 [id number]: Therapeutic Exercise completed Philip Payne, PT [address] [place], [address], [facility] 01/24/2019 14:29:08 01/25/20 19 Treatment and Advice completed Philip Payne, PT [address] [place], [address], [facility] 01/24/2019 14:25:22 01/05/20 19 [id number]: Therapeutic Exercise completed Philip Payne, PT [address] [place], [address], [facility] 01/04/2019 09:12:51 01/05/20 19 Treatment and Advice completed Philip Payne, PT [address] [place], [address], [facility] 01/04/2019 09:32:13 12/14/19 19 69956: Therapeutic Exercise completed Philip Payne, PT [address] [place], [address], [facility] 12/14/2018 09:45:05 12/14/19 19 Treatment and Advice completed Philip Payne, PT [address] [place], [address], [facility] 12/14/2018 09:31:33 12/01/19 19 Physical Activity Counselling completed Philip Payne, PT [address] [place], [address], [facility] 12/01/2018 11:03:33 12/01/19 19 80090: PT Eval Low Complexity completed Philip Payne, PT [address] [place], [address], [facility] 12/01/2018 11:03:33 12/01/19 19 Treatment and Advice completed Philip Payne, PT [address] [place], [address], [facility] 12/01/2018 11:06:11 04/07/20 17 POC Urinalysis Testing completed Judy Erazo MA [facility] 04/07/2017 10:15:39 03/31/20 17 POC Urinalysis Testing completed Kaitlin Paulson [facility] 03/31/2017 16:33:48 10/21/20 16 82457: Therapeutic Exercise completed Philip Payne, PT [address] [place], [address], [facility] 10/22/2016 06:43:34 10/21/20 16 Treatment and Advice completed Philip Payne, PT [address] [place], [address], [facility] 10/21/2016 10:35:08 09/30/20 16 14424: Therapeutic Exercise completed Philip Payne, PT [address] [place], [address], [facility] 09/30/2016 10:41:11 09/30/20 16 Treatment and Advice completed Philip Payne, PT [address] [place], [address], [facility] 09/30/2016 10:39:47 09/17/20 16 29398: PT Evaluation completed Philip Payne, PT [address] [place], [address], [facility] 09/17/2016 10:02:58 09/17/20 16 Physical Activity Counselling completed Philip Payne, PT [address] [place], [address], [facility] 09/17/2016 10:03:08 09/17/20 16 Treatment and Advice completed Philip Payne, PT [address] [place], [address], [facility] 09/17/2016 10:39:26 06/03/20 16 00454: Therapeutic Exercise completed Philip Payne, PT [address] [place], [address], [facility] 06/03/2016 09:38:05 06/03/20 16 67673: Manual Therapy completed Philip Payne, PT [address] [place], [address], [facility] 06/03/2016 09:38:13 05/13/20 16 34058: Therapeutic Exercise completed Philip Payne, PT [address] [place], [address], [facility] 05/13/2016 09:13:17 04/24/20 16 15489: PT Evaluation completed Philip Payne, PT [address] [place], [address], [facility] 04/24/2016 09:39:32 04/23/20 12 Greater Trochanteric Bursa Steroid Injection completed Elly Dc MD [address] [place], [address], [facility] 04/23/2012 08:27:31 05/30/20 10 Treatment and Advice completed Kitty Verma [address] [place], [address], [facility] 05/30/2010 18:26:06 Imaging Results Imaging Date Name Status LastModified by Organiz ation Details LastModified Time 01/12/2024 XR, hip + pelvis, unilateral, 2 or 3 view completed [facility] (Imaging) [address], [place], [address], 01/17/2024 15:15:46 03/15/2024 MAMMO, screening, tomosynthesis, bilateral completed [facility] (Imaging) [address], [place], [address], 03/16/2024 08:54:54 04/14/2024 bone density completed [facility] [address] [place], [address], 05/09/2024 22:02:50 Procedure Notes None recorded. Medical Equipment None Reported. Allergies Allergen ID Allergen Name Allergen Category Reaction Reaction Severity Criticality Documentation Date Start Date Code Code System Note Provider Name and Address Organization Details Recorded Time 1393 aspirin medicatio n rash Not available Not available 12/12/2008 1191 RxNorm ??? Not Available [facility] 1 06:05:20 Medications Name Sig Start Date Stop Date Status Note LastModified by Organization Details LastModified Time tizanidin e hydrochlo ride 4 mg tabs 07/27 completed Not Available Not Available Not Available betametha sone dipropion ate 0.05 % crea 06/15 completed duplicat e Not Available Not Available Not Available cyclobenz aprine hydrochlo ride 10 mg tabs 07/27 completed Not Available Not Available Not Available hydroxych loroquine sulfate 200 mg tabs 11/09 completed Not Available Not Available Not Available prednison e 1 mg tabs Takin 2.5 tabs a day 03/12 completed Not Available Not Available Not Available prednison e 10 mg tabs 07/27 completed [...] as needed. 04/17 completed prescrib ed by [facility] Not Available Not Available Not Available Claritin- [...] Not Available Vitals Date Recorded Body height Provider Name an d Address Organization Details Last Updated DateTime 11/10/2023 147.32 cm Nessa Taveras MA [facility] 11/10/2023 10:02:25 Date Recorded Body height Body mass index (BMI) Body weight Heart rate Oxygen saturation Oxygen saturation in Arterial blood by Pulse oximetry Systolic blood pressure Diastolic blood pressure Provider Name and Address Organization Details Last Updated DateTime 4 147.32 cm 29.9 kg/m2 96319.7 1 g 76 /min 97 % 97 % 120 mm[Hg] 84 mm[Hg] Luisa Conroy MA [facility] 4 10:15:34 Date Recorded Body height Oxygen saturation Oxygen saturation in Arterial blood by Pulse oximetry Heart rate Systolic blood pressure Diastolic blood pressure Provider Name and Address Organization Details Last Updated DateTime 4 147.32 cm 98 % 98 % 90 /min 146 mm[Hg] 100 mm[Hg] Josie beal RN [facility] 4 07:51:46 Date Recorded Body height Body temperature Oxygen saturation Oxygen saturation in Arterial blood by Pulse oximetry Heart rate Systolic blood pressure Diastolic blood pressure Provider Name and Address Organization Details Last Updated DateTime 4 147.32 cm 98.1 [degF] 99 % 99 % 85 /min 142 mm[Hg] 88 mm[Hg] Olinda Lynne CMA [facility] 4 10:43:05 Date Recorded Body height Body mass index (BMI) Body weight Oxygen saturation Oxygen saturation in Arterial blood by Pulse oximetry Heart rate Body temperature Systolic blood pressure Diastolic blood pressure Provider Name and Address Organization Details Last Updated DateTime 5 152.4 cm 25.4 kg/m2 70113.0 1 g 98 % 98 % 99 /min 98.1 [degF] 110 mm[Hg] 66 mm[Hg] Tara Teran [facility] 5 16:23:59 Social History Question Answer Notes LastModified by Organizat ion Details LastModified Time Tobacco Smoking Status Never Smoker [place] Garcia, [facility] 12/19/2022 09:11:24 What Is Your [...] Or The Highest Degree You Have Received? 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 not available 09/29/2017 Have There Been [...] Not available 2022 09:30:11 Sister Benign hypertension [facility]-251 Not available 09:30:11 Medical History Condition Response HEMATOLOGIC Y Osteopenia Y Systemic Lupus E Y Gynecological History Statement/Question Response Menses Monthly N Current Control Method Partner Vas ectomy Date of LMP 07/01/2021 LMP Approximate Obstetrics History GPAL:G 0 P 0 0 0 0 Immunizations Vaccine Type Date Status Note Provider Yon plata and Address Organization Details Recorded Time Tdap 3 completed Not Available [facility] 11/19/2019 02:32:25 Influenza, split virus, trivalent, preservative 0 completed Not Available [facility] 11/19/2019 02:33:03 Influenza, split virus, quadrivalent, PF 7 completed Not Available [facility] 11/19/2019 02:22:08 COVID-19, mRNA, LNP-S, PF, 30 mcg/0.3 mL dose 1 completed [facility] 02/04/2021 07:38:08 COVID-19, mRNA, LNP-S, PF, 30 mcg/0.3 mL dose 1 completed Luisa Conroy MA [facility] 07/08/2024 08:27:06 Tdap 3 completed ZOYA Stinson [address] [place] [address], [address], [facility] 01/01/2023 14:36:47 COVID-19, mRNA, LNP-S, PF, 30 mcg/0.3 mL dose 1 [facility] [place] [facility] 07/08/2024 08:27:06 COVID-19, mRNA, LNP-S, PF, 30 mcg/0.3 mL dose 2 completed [facility]oy [facility] 07/08/2024 08:27:06 COVID-19, mRNA, LNP-S, PF, 30 mcg/0.3 mL dose 2 completed [facility]allie Hinton [facility] 08/26/2022 15:48:26 COVID-19, mRNA, LNP-S, bivalent, PF, 10 mcg/0.2 mL 3 completed Pascale Cade [facility] 03/16/2023 10:44:24 zoster recombinant 3 completed [facility] 07/08/2024 08:27:06 zoster recombinant 3 completed [place] [facility] 07/08/2024 08:27:06 COVID-19 mRNA, bivalent, original/Omicron BA.1, Non-US Vaccine (Spikevax Bivalent), Moderna 3 completed Anette Alfaro LPN [facility] 04/17/2023 08:33:05 zoster recombinant 3 [facility] [place] [facility] 07/08/2024 08:27:06 COVID-19, mRNA, LNP-S, PF, 30 mcg/0.3 mL dose, cici-sucrose 2 completed [place] [facility] 07/08/2024 08:27:06 COVID-19, mRNA, LNP-S, bivalent, PF, 50 mcg/0.5 mL or 25mcg/0.25 mL dose 3 [facility] [place] [facility] 07/08/2024 08:27:06 COVID-19, mRNA, LNP-S, bivalent, PF, 30 mcg/0.3 mL dose 2 [facility] [place] [facility] 07/08/2024 08:27:06 COVID-19, mRNA, LNP-S, PF, cici-sucrose, 30 mcg/0.3 mL 3 [facility] [place] [facility] 07/08/2024 08:27:06 SARS-COV-2 (COVID-19) vaccine, UNSPECIFIED 4 completed [place] [facility] 07/08/2024 08:27:32 Past Encounters Encounter ID Performer Location Encounter Start Date Encounter Closed Date Diagnosis/Indication Diagnosis SNOMED-CT Code Diagnosis ICD10 Code Diagnosis Note [id number] [facility], OFFICE [address] [place], [place] [address] [address] 09/09/2004 08:31:56 09/09/2004 14:51:23 [id number] [address] [place] [address] 10/22/2004 10:57:13 10/22/2004 13:35:04 [id number] [facility], OFFICE [address] [facility] [place] [address] 02/03/2005 09:53:16 02/03/2005 16:18:27 [id number] [place] [id number] 02/03/2005 10:34:39 02/03/2005 10:34:54 [id number] [facility], OFFICE [address] [place] [address] 05/06/2005 14:47:40 05/06/2005 15:46:30 [id number] LAB - [facility] [place] [place] [address] 06/25/2005 10:44:11 06/25/2005 10:44:39 [id number] LAB - [facility] [place] [place] [id number] 10/15/2005 10:29:50 10/15/2005 10:30:06 [id number] [facility], OFFICE [address] [place] [address] 10/20/2005 14:56:31 10/20/2005 16:54:25 [id number] [facility], OFFICE [address] [place] [address] 11/19/2005 10:51:43 11/19/2005 14:50:32 [id number] LAB - [facility] [place] [place] [address] 11/19/2005 11:27:55 11/19/2005 11:28:11 [id number] LAB - [facility] [place] [place] [address] 01/26/2006 15:41:28 01/26/2006 15:41:44 [id number] [facility], OFFICE [address] [place] [address] 02/20/2006 08:26:42 02/20/2006 13:40:07 [id number] LAB - [facility] [place] [place] [id number] 03/31/2006 10:11:28 03/31/2006 10:11:38 [id number] LAB - [facility] [place] [place] [id number] 07/22/2006 14:37:11 07/22/2006 14:37:28 [id number] LAB - [facility] [place] [place] [id number] 11/03/2006 16:10:37 11/03/2006 16:10:44 [id number] [facility], OFFICE [address] [place] [id number] 04/27/2007 10:23:15 04/27/2007 15:45:09 [id number] LAB - [facility] [place] [place] [id number] 04/27/2007 10:24:05 04/27/2007 10:24:15 [id number] LAB - [facility] [place] [place] [id number] 12/07/2007 11:10:28 12/07/2007 11:27:08 [id number] [facility], OFFICE [address] [place] [address] 12/29/2007 13:34:17 11/22/2008 02:02:29 [id number] Radiology , [facility] [address] [place] [address] 01/05/2008 14:12:00 01/05/2008 16:49:47 [id number] Radiology , [facility] [address], [place] [address] 01/05/2008 00:00:00 11/22/2008 02:02:29 [id number] [facility], OFFICE [address], [place] [address] 01/13/2008 08:41:15 11/22/2008 02:02:29 [id number] [facility] [place] [address] 03/03/2008 13:30:33 11/22/2008 02:02:29 [id number] LAB - [facility] [place] [place] [address] 04/24/2008 08:03:43 04/24/2008 08:03:59 [id number] LAB - [facility] [place] [place] [id number] 09/05/2008 09:28:47 09/05/2008 09:29:29 [id number] Rheumatol sara [facility] [place] [place] [address] 09/07/2008 11:03:00 11/22/2008 02:02:29 [id number] LAB - [facility] [place] [place] [address] 1 09/11/2008 08:38:23 09/11/2008 08:38:45 [id number] LAB - [facility] [place] [place] [address] 09/15/2008 08:41:39 09/15/2008 08:41:43 [id number] LAB - [facility] [place] [place] [address] 09/22/2008 10:09:03 09/22/2008 10:09:27 [id number] LAB - [facility] [place] [place] [id number] 1 10/03/2008 10:10:19 10/03/2008 10:10:37 [id number] [facility] - [facility] [place] [place] [address] 10/18/2008 12:29:04 10/18/2008 12:29:52 [id number] [address] [place] [address] 10/19/2008 09:25:20 11/22/2008 02:02:29 [id number] Judy Mclean MD Rheumatol [address]aylor[address] [place] [address] 12/12/2008 08:25:50 12/13/2008 10:53:36 [id number] Judy Mclean MD Radiology , [address] [place] [address] 01/24/2009 09:28:00 01/25/2009 11:30:06 [id number] Judy Mclean MD Rheumatol [address] [place] [address] 04/30/2009 08:43:10 05/01/2009 10:24:35 [id number] Radiology , [place] [address] [place] [address] 05/24/2009 09:55:13 05/24/2009 10:24:15 [id number] Judy Mclean MD Rheumatol [address] [place] [address] 08/20/2009 08:44:44 08/23/2009 09:40:15 [id number] LAB - [place] [address] [place] [address] 1 11/21/2008 16:13:05 11/21/2008 16:13:14 [id number] LAB - [facility] [place] [place] [address] 1 11/27/2008 16:01:58 11/27/2008 16:02:12 [id number] LAB - [facility] [place] [place] [address] 1 12/01/2008 08:44:53 12/01/2008 08:54:35 [id number] LAB - [facility] [address] [place] [address] 12/07/2008 09:21:33 12/07/2008 09:21:51 [id number] LAB - [facility] [place] [place] [id number] 1 12/19/2008 10:45:10 12/19/2008 10:45:17 [id number] LAB - [facility] [place] [place] [address] 1 12/27/2008 11:57:58 12/27/2008 11:58:24 [id number] LAB - [facility] [place] [place] [address] 1 01/04/2009 09:38:59 01/04/2009 09:39:41 [id number] LAB - [facility] [place] [place] [address] 1 01/18/2009 08:57:55 01/18/2009 09:06:58 [id number] LAB - [facility] [place] [place] [address] 01/24/2009 08:50:58 01/24/2009 08:51:21 [id number] [facility] [address] [place] [address] 1 01/24/2009 00:00:00 08/30/2009 02:00:52 [id number] LAB - [facility] [place] [place] [address] 1 01/31/2009 12:05:31 01/31/2009 12:05:58 [id number] LAB - [facility] [address] [place] [address] 1 02/12/2009 09:55:29 02/12/2009 09:55:44 [id number] LAB - [facility] [address] [place] [address] 1 02/26/2009 09:30:22 02/26/2009 09:30:32 [id number] LAB - [facility] [place] [place] [id number] 1 03/13/2009 13:12:41 03/13/2009 13:12:48 [id number] LAB [facility] [place] [address] 1 03/23/2009 08:51:49 03/23/2009 08:53:33 [id number] LAB - [facility] [place] [place] [address] 1 04/05/2009 09:18:25 04/05/2009 09:20:28 [id number] LAB - [facility] [place] [place] [address] 1 04/24/2009 12:24:01 04/24/2009 12:37:30 [id number] [facility] - [facility] [place] [place] [id number] 1 05/10/2009 10:30:06 05/10/2009 10:30:10 [id number] [facility] - [facility] [place] [place] [address] 1 05/24/2009 10:07:51 05/24/2009 10:07:56 [id number] [facility] [place] [address] 05/24/2009 00:00:00 08/30/2009 02:00:52 [id number] [facility] - [facility] [place] [place] [address] 1 06/14/2009 11:04:41 06/14/2009 11:04:49 [id number] LAB - [facility] [place] [place] [address] 1 07/03/2009 12:58:21 07/03/2009 12:58:29 [id number] LAB - [facility] [place] [place] [id number] 1 07/16/2009 14:18:34 07/16/2009 14:18:47 [id number] [facility] [place] [id number] 1 07/23/2009 08:08:22 07/23/2009 08:08:57 [id number] [facility] [place] [address] 1 08/03/2009 12:34:13 08/03/2009 12:34:35 [id number] LAB - [facility] [place] [place] [address] 1 08/14/2009 16:12:56 08/14/2009 16:13:26 [id number] LAB - [facility] [place] [place] [address] 1 08/20/2009 08:56:21 08/20/2009 09:01:29 [id number] Judy Mclean MD Rheumatol ogtaylor, [facility] [place] [place] [address] 1 10/30/2009 08:04:13 10/31/2009 11:00:12 [id number] [facility], OFFICE [address] [place] [address] 1 12/13/2009 08:44:23 12/13/2009 09:56:02 [id number] [facility], OFFICE [address] [place] [address] 1 01/01/2010 07:53:08 01/01/2010 15:44:38 [id number] Judy Mclean MD [place] [address] [place] [address] 01/24/2010 08:43:05 01/28/2010 09:45:28 [id number] Judy Mclean MD Rheumatol ogtaylor, [place] [address] [place] [address] 1 04/25/2010 08:47:03 04/26/2010 08:08:46 [id number] [facility], OFFICE [address] [place] [address] 1 05/16/2010 07:44:47 05/16/2010 09:12:43 [id number] [facility] [place] [address] [place] [address] 05/30/2010 17:24:48 06/03/2010 11:21:48 [id number] [facility], OFFICE [address] [place] [address] 1 07/18/2010 07:46:23 07/18/2010 08:25:28 [id number] Judy Mclean MD Rheumatol ogy, [facility] [place] [place] [address] 1 12/24/2010 11:14:10 12/24/2010 15:33:19 [id number] [facility], OFFICE [address] [place] [address] 1 04/17/2011 09:50:54 04/17/2011 11:02:57 [id number] Physical Therapy, [facility] [place] [place] [address] 1 04/18/2011 12:59:55 04/23/2011 08:28:00 [id number] Physical Therapy, [facility] [place] [place] [address] 1 05/09/2011 10:01:21 05/12/2011 13:47:41 [id number] Physical Therapy, [facility] [place] [place] [address] 1 05/23/2011 13:28:59 05/27/2011 09:35:36 [id number] [facility] [address] 1 05/23/2011 14:01:22 05/26/2011 09:32:20 [id number] Physical Therapy, [facility] [place] [place] [address] 1 05/28/2011 11:31:10 05/29/2011 09:23:55 [id number] Radiology , [facility] [place] [place] [address] 1 06/16/2011 11:03:51 06/16/2011 14:33:51 [id number] Physical Therapy, [facility] [place] [place] [address] 1 06/17/2011 10:59:58 06/19/2011 10:22:01 [id number] Physical Therapy, [facility] [place] [place] [address] 1 08/25/2011 12:55:20 08/26/2011 14:44:38 [id number] Physical Therapy, [facility] [place] [place] [address] 1 09/01/2011 12:00:40 09/04/2011 11:14:41 [id number] Rheumatol ogy, [facility] [place] [address] 1 09/15/2011 10:57:08 09/16/2011 08:56:52 [id number] Physical Therapy, [facility] [address] [place], [place] [address] 1 09/18/2011 13:00:04 09/19/2011 13:40:14 [id number] Physical Therapy, [facility] [address] [place], [place] [address] 10/07/2011 11:58:12 10/09/2011 15:49:39 [id number] [facility], OFFICE [address], [place] [address] 1 01/15/2012 11:17:23 01/16/2012 07:34:04 [id number] Rheumatol ogy, [facility] [address], [place] [address] 1 04/05/2012 08:49:15 04/06/2012 08:48:16 [id number] [facility], OFFICE [facility] [address] [place], [place] [address] 04/23/2012 07:55:44 04/23/2012 08:31:19 [id number] Judy Mclean MD Radiology , [facility] [address] [place], [place] [address] 1 04/23/2012 10:06:01 04/26/2012 10:38:55 [id number] Elly Dc MD [facility], OFFICE [address], [place] [address] 09/07/2012 13:40:26 09/07/2012 14:49:03 [id number] Elly Dc MD [facility], OFFICE [facility] [address] [place], [place] [address] 12/16/2012 08:55:01 12/16/2012 12:56:26 [id number] Yayo Perdomo NP , [facility], OFFICE [address], [place] [address] 03/11/2013 09:29:34 03/11/2013 10:42:11 [id number] Yayo Perdomo NP , [facility], OFFICE [address] [place], [place] [address] 03/11/2013 10:44:39 03/14/2013 08:28:55 [id number] Philip Payne , PT Physical Therapy, [facility] [address] [place] [address] 03/30/2013 10:32:15 03/31/2013 07:36:55 [id number] Philip Payne , PT Physical Therapy, [address] [address] 04/13/2013 12:00:13 04/14/2013 07:36:52 [id number] Jennifer Alvarado MA , [facility], OFFICE [address] [place] [address] 03/15/2014 08:56:31 03/15/2014 11:27:20 Adult health examination [id number] see Risk Assessment and Lifestyle Change Counseling section above Counseling [id number] Allergic rhinitis [id number] Pt with lightheadn ess with standing ? claritin vs sinus pressure vs weaning of prednisone . Trial of stopping claritin and trial of flonase. Premenstru al tension syndrome [id number] stable with wellbutrin . Systemic l upus erythematosus [id number] Overall pt condition is stable. She will follow up with rhuem as planned. She is weaning off of prednsison e slowly. Follow up with rheum . [id number] Yvrose BENJAMIN, [facility], OFFICE [address] [place] [address] 09/16/2014 10:32:28 09/18/2014 07:52:29 Menorrhagia [id number] Rest, push fluids continue NSAID and increase iron to tid. If heavy bleeding recurs, or new sites of bleeding/b ruising, or fever, or dizziness on standing, needs to go to ER. Otherwise, will do cbc on Thursday and f/u with PCP this week. [id number] THEODORE Paul, [facility], OFF[address] [place] [address] 03/20/2015 08:11:31 03/20/2015 12:04:03 Oropharyngeal mucositis [id number] Mucositis vs allergic vs infectious pharyngiti s in immunocomp romised pt Fairly benign eval today Rapid strep and throat cx today Trial Claritin and viscous lidocaine Break from Flonase - nasal saline Reviewed limiting diet to foods that do not require significan t chewing; acidic, salty, or dry foods should be avoided. If the patient is unable to swallow foods or liquids, parenteral fluid and/or nutritiona l support may be needed. Ms Champion will review sx with her hematologi st and will be in touch if sx worsen, she develops fever, difficulty swallowing or resp sx [id number] Gini Mccarthy LPN , [facility], OFFICE [address] [place] [address] 03/23/2015 14:40:04 03/29/2015 09:19:04 General examination of patient [id number] Systemic l upus erythematosus [id number] Pt currently working with hematology and rheum to treat her thrombocyt openia. She is worried about lowering the prednisone . Thrombocyt openic disorder [id number] better with rituxan. Continue to follow with hematology . Mild major depression [id number] Pt with many life stressors but overall doing ok with wellbutrin . Candidiasis of mouth [id number] trial of nystatin and follow up if not better. Screening for malignant neoplasm of cervix [id number] CASSIUS Alves-BHUMIKA , [facility], OFFICE [address] [place] [address] 07/03/2015 11:49:26 07/04/2015 08:37:00 Pruritus of vagina [id number] exam reassuring , possible low grade yeast/delia us s/p recent exercise. supportive care reviewed, no discharge. pt to report if symptoms fail to improve or worsen. [id number] Kristyn Peralta , [facility], OFFICE [address] [place] [address] 09/18/2015 10:29:30 09/19/2015 10:00:50 Sinusitis 55190428 J32.9 [id number] Lala Reich , [facility], OFFICE [address] [place] [address] 02/29/2016 15:33:29 03/03/2016 06:49:32 Injury of upper extremity 180442516 S49.90XA R - arm. forced adduction of right arm while trying to stop her puppy from running. injury seems to be in elbow and proximal forearm. Injury 24 hrs old. swelling and finger numbness noted. She has been icing. after exam this seems to be a sprain/str ain of her forearm but will xray to r/o fracture. continue ice, and NSAIDS for another 24 hrs. results of xray to be sent to pt [id number] Philip Payne , PT Physical Therapy, [address] [address] 04/24/2016 09:30:58 04/24/2016 13:09:17 Pain in elbow 26141104 M25.963 [id number] Philip Payne , PT Physical Therapy, [address] [address] 05/13/2016 09:06:09 05/14/2016 07:16:17 Pain in elbow 14845173 M25.147 [id number] Philip Payne , PT Physical Therapy, [address] [address] 06/03/2016 09:03:48 06/03/2016 09:45:19 Pain in elbow 72526606 M25.400 [id number] , [facility], OFFICE [address] [place] [address] 08/21/2016 10:42:52 08/21/2016 11:55:46 Acute low back pain 339473914 M54.5 Sx appear like MSK strainNo red flags in hx or on exam Daniella treat as suchpred burst, NSAIDs TID, muscle relaxant, PTConsider imaging given chronic steroid use, lupus if no improvemen tMs H will be in touch with any red flag sx [id number] Philip Payne , PT Physical Therapy, [address] [address] 09/17/2016 09:56:29 09/18/2016 13:02:36 Low back pain 947051681 M54.5 [id number] Philip Payne , PT Physical Therapy, [address] [address] 09/30/2016 09:54:28 09/30/2016 11:46:34 Low back pain 429029960 M54.5 [id number] Philip Payne , PT Physical Therapy, [address] [address] 10/21/2016 09:57:05 10/22/2016 11:14:56 Low back pain 955180795 M54.5 [id number] Kallie Arriaga MD FP, [facility], OFFICE [address] [place] [address] 11/07/2016 16:43:15 11/07/2016 17:28:40 Sinusitis 30663992 J32.9 with lymphadeno pathysetti ng of recent viral illness and linger sx including coughdoes not appear to currently have s/sx bacterial involvemen tdiscussed at length supportive txalready doing neti and flonase?s allergy involvemen t, cost of OTC meds an issueenc to try allergy med, even benadryl at HS to see if effectives trongly enc to call if fever, purulent drainage or worsening facial pain/jaw pain ( which has resolved ) and we can tx with abxshe will also f/u with PCP to consider Singulair for tx of allergies Cough [id number] R05 lungs clearno SOB postviral coughtessa donta refilled [id number] Yvonne Mills LPN , [facility], OFFICE [address] [place] [address] 03/31/2017 16:32:26 03/31/2017 17:34:20 Urinary tract infectious disease 15525927 N39.0 I pondered whether pt meets criteria for complicate d UTI given that she has lupus and is on immunosupp ressants (plaquenil and low dose prednisone ). However, I discussed with Dr Stratton who suggests that these meds are minimally immunosupp ressive, plus recent CBC shows no neutropeni a. Will provide standard Bactrim DS x 3 days. Instructed to push fluids, to follow up if sxs not improving in 24-36 hours, or for persistent or worsening symptoms or fever or back pain. [id number] Newton Al MD FP, [facility], [address] [place] [address] 04/07/2017 10:04:31 04/07/2017 15:10:54 Acute pyelonephritis 05217207 N10 partial response and then relapsed on three days of bactrim- now has evidence of early pyelo. was given rx for Cipro by Dr. Dc over the phone I reworked the instructio ns so she takes 500mg bid for a week. portal us if not better. going [place] 6 [place]. take culturelle with med. Lupus erythematosus 2008 58579 L93.0 either the disease itself or the meds she is on may have explained why she didn't clear the infection in 3 days. [id number] VIVIANA Kendrick , [facility], OFFICE [address] [place] [address] 06/11/2017 13:22:52 06/11/2017 16:58:25 Angioedema 61878301 T78.3XXA A: Patient reports swollen lips, dry lips and throat tightness CBC on 05/19/2017 was normal No findings on exam No shortness of breath or difficulty swallowing ; not choking on foods or liquids. P: could be a manifestat ion of her lupus or a mild allergic reaction. Patient declines CBC testing today. Declines suggestion to try benadryl or temporaril y increasing prednisone dose.Decli aguila referral to test lead application testing Patient expresses frustratio n that this provider was unable to help her. [id number] Elly Dc MD , [facility], OFFICE [address] [place] [address] 09/29/2017 09:00:33 09/29/2017 10:17:38 Adult health examination 917785235 Z00.00 see Risk Assessment and Lifestyle Change Counseling section above Counseling 646088451 Z71 .9 Recurrent major depressive episodes 642222176 F33.9 Doing well with current dose of wellbutrin . Doesn't want to change. Will continue with this. Active or passive immunization 197591158 Z23 Pruritus ani 43232774 L2 9.0 Chronic for patient. Trial of topical steroid. Allergic rhinitis 550608 04 J30.9 Better with rhinocort. Didn't tolerate flonase. Thrombocyt openic disorder 223336693 D69.6 Followed by hematology . Systemic l upus erythematosus 17234896 M32.9 Pt currently working with hematology and rheum to treat her thrombocyt openia and lupus. Currently stable at this time. [id number] Elly Dc MD , [facility], OFFICE [address] [place] [address] 11/12/2018 13:27:04 11/12/2018 14:19:40 Adult health examination 252647210 Z00.00 see Risk Assessment and Lifestyle Change Counseling section above Counseling 858158786 Z71 .9 Depression screening 171 994796 Z13.89 depression screening tool administer ed, entered into emr, scored and discussed, time greater than 7.5 minutes Allergic rhinitis 174770 04 J30.9 Better with rhinocort and claritin D daily. Encouraged to work on trying without D. Pain of le ft shoulder joint [id number] 1938260 M25.512 refer to PT for evaluation and treatment of shoudler pain. Eczema 02596803 L30.9 trial of topical steroid as needed on cracked fingers. Systemic l upus erythematosus 91282436 M32.8 Doing well with her current rheumatolo gist. Continue current medication s and follow up. Thrombocyt openic disorder 809722864 D69.6 Followed by hematology . Most recently stable. Recurrent major depressive episodes 218180557 F33.9 Doing well with current dose of wellbutrin . Doesn't want to change. Will continue with this. [id number] Philip Payne , PT Physical Therapy, [address] [address] 12/01/2018 10:34:02 12/02/2018 08:17:00 Pain of left shoulder joint 8844081158 1026781 M25.512 43 year old {{female* male}} with findings most consistent with left shoulder pain with movement coordinati on impairment following trauma with irritation primarily of the anterior rotator cuff. Patient has significan t functional limitation in their {{activiti es of daily living act ivities of daily living and work capacity a ctivities of daily living and exercise capacity* activities of daily living and recreation }}. Skilled physical therapy is needed to safely and progressiv kelli address impairment s and functional limitation s as outlined below. Patient Goals: Be able to reach, lift and carry with her left arm for ADLs and return to her complete yoga practice without shoulder pain or limitation Clinical Goals: 1. Demonstrat e symmetric pain free active, passive and resisted motions of the {{neck and upper extremitie s shoulder * elbow, forearm and wrist trun k and lower extremitie s hip knee ankle}}. 2. Demonstrat e sufficient muscular endurance to meet functional demands. Treatment Plan: Patient to return for {{4 6 8* 1 0}} visits over {{4 8 12*} } weeks. We expect significan t change in pain, impairment and function in this time frame. Treatment to Include: Therapeuti c exercise and manual therapy [id number] Philip Payne PT Physical Therapy, [address] [address] 12/14/2018 09:00:54 12/14/2018 13:56:49 Pain of left shoulder joint 2966158668 6536266 M25.512 Patient Goals: Be able to reach, lift and carry with her left arm for ADLs and return to her complete yoga practice without shoulder pain or limitation Clinical Goals: 1. Demonstrat e symmetric pain free active, passive and resisted motions of the {{neck and upper extremitie s shoulder * elbow, forearm and wrist trun k and lower extremitie s hip knee ankle}}. 2. Demonstrat e sufficient muscular endurance to meet functional demands. Treatment Plan: Patient to return for {{4 6 8* 1 0}} visits over {{4 8 12*} } weeks. We expect significan t change in pain, impairment and function in this time frame. Treatment to Include: Therapeuti c exercise and manual therapy [id number] Philip Payne PT Physical Therapy, [address] [address] 01/04/2019 09:05:47 01/04/2019 10:55:41 Pain of left shoulder joint 8568214158 9287776 M25.512 Patient Goals: Be able to reach, lift and carry with her left arm for ADLs and return to her complete yoga practice without shoulder pain or limitation Clinical Goals: 1. Demonstrat e symmetric pain free active, passive and resisted motions of the {{neck and upper extremitie s shoulder * elbow, forearm and wrist trun k and lower extremitie s hip knee ankle}}. 2. Demonstrat e sufficient muscular endurance to meet functional demands. Treatment Plan: Patient to return for {{4 6 8* 1 0}} visits over {{4 8 12*} } weeks. We expect significan t change in pain, impairment and function in this time frame. Treatment to Include: Therapeuti c exercise and manual therapy [id number] Philip Payne PT Physical Therapy, [address] [address] 01/24/2019 13:57:47 01/24/2019 15:27:05 Pain of left shoulder joint 6328995726 6262835 M25.512 Patient Goals: Be able to reach, lift and carry with her left arm for ADLs and return to her complete yoga practice without shoulder pain or limitation Clinical Goals: 1. Demonstrat e symmetric pain free active, passive and resisted motions of the {{neck and upper extremitie s shoulder * elbow, forearm and wrist trun k and lower extremitie s hip knee ankle}}. 2. Demonstrat e sufficient muscular endurance to meet functional demands. Treatment Plan: Patient to return for {{4 6 8* 1 0}} visits over {{4 8 12*} } weeks. We expect significan t change in pain, impairment and function in this time frame. Treatment to Include: Therapeuti c exercise and manual therapy [id number] Hanh BENJAMIN, [facility], OFFICE [address] [place] [address] 06/15/2019 09:55:01 06/15/2019 14:26:47 Backache 071942488 M54.9 Referred to physical therapy for further treatment. Start tizanidine and ibuprofen as written below. Stop naproxen while taking ibuprofen. [id number] Philip Payne , PT Physical Therapy, [facility] [address] [place] [address] 06/16/2019 12:14:41 06/17/2019 08:14:09 Low back pain 399522768 M54.5 44 year old {{male fem black*}} with signs and symptoms consistent with {{acute* c hronic rec urrent}} low back pain with {{mobility deficits.* movement co-ordinat ion impairment . referred lower extremity pain. radi ating pain. rela bre cognitive or affective tendencies . related generalize d pain.}} Patient has significan t functional limitation in their {{activiti es of daily living act ivities of daily living and work capacity* activities of daily living and exercise capacity a ctivities of daily living and recreation }}. Skilled physical therapy is needed to safely and progressiv kelli address impairment s and functional limitation s as outlined below. Patient Goals: Be able to sleep through the night, move in bed, transfer, sit, bend, lift and carry without limitation s due to back pain. Clinical Goals: 1. Demonstrat e pain free trunk range of motion. 2. Demonstrat es sufficient trunk muscular stability to meet functional demands. Treatment Plan: Patient to return for {{4 6 8* 1 0}} visits over {{4 8 12*} } weeks. We expect significan t change in pain, impairment and function in this time frame. Treatment to Include: therapeuti c exercise and manual therapy [id number] Philip Payne , PT Physical Therapy, [address] [address] 06/22/2019 10:00:54 06/22/2019 16:06:05 Low back pain 233777214 M54.5 Patient Goals: Be able to sleep through the night, move in bed, transfer, sit, bend, lift and carry without limitation s due to back pain. Clinical Goals: 1. Demonstrat e pain free trunk range of motion. 2. Demonstrat es sufficient trunk muscular stability to meet functional demands. [id number] Philip Payne , PT Physical Therapy, [address] [address] 06/30/2019 09:32:24 06/30/2019 12:55:47 Low back pain 429828858 M54.5 Patient Goals: Be able to sleep through the night, move in bed, transfer, sit, bend, lift and carry without limitation s due to back pain. Clinical Goals: 1. Demonstrat e pain free trunk range of motion. 2. Demonstrat es sufficient trunk muscular stability to meet functional demands. [id number] Philip Payne , PT Physical Therapy, [address] [address] 07/06/2019 11:46:56 07/06/2019 12:44:03 Low back pain 270224792 M54.5 Patient Goals: Be able to sleep through the night, move in bed, transfer, sit, bend, lift and carry without limitation s due to back pain. Clinical Goals: 1. Demonstrat e pain free trunk range of motion. 2. Demonstrat es sufficient trunk muscular stability to meet functional demands. [id number] Philip Payne , PT Physical Therapy, [address] [address] 07/18/2019 16:27:38 07/19/2019 12:06:15 Low back pain 867991176 M54.5 Patient Goals: Be able to sleep through the night, move in bed, transfer, sit, bend, lift and carry without limitation s due to back pain. Clinical Goals: 1. Demonstrat e pain free trunk range of motion. 2. Demonstrat es sufficient trunk muscular stability to meet functional demands. [id number] Elly Dc MD , [facility], OFFICE [address] [place] [address] 07/27/2019 15:54:47 07/27/2019 17:31:26 Venereal disease screening 052416491 Z11.3 Acute situ ational disturbance 895166031 F43.20 from spouse. Concerned about possible exposures. Sadness.In therapy. Continue this and follow up as needed. [facility] [id number] 175114 B37.3 Treat with diflucan and check gc/ct Exposure t o communicable disease 220348017 Z20.9 [id number] Philip Payne , PT Physical Therapy, [address] [address] 08/01/2019 16:59:55 08/03/2019 07:19:56 Low back pain 406418794 M54.5 Patient Goals: Be able to sleep through the night, move in bed, transfer, sit, bend, lift and carry without limitation s due to back pain. Clinical Goals: 1. Demonstrat e pain free trunk range of motion. 2. Demonstrat es sufficient trunk muscular stability to meet functional demands. [id number] Philip Payne , PT Physical Therapy, [address] [address] 08/08/2019 09:29:19 08/08/2019 15:38:51 Low back pain 165666409 M54.5 Patient Goals: Be able to sleep through the night, move in bed, transfer, sit, bend, lift and carry without limitation s due to back pain. Clinical Goals: 1. Demonstrat e pain free trunk range of motion. 2. Demonstrat es sufficient trunk muscular stability to meet functional demands. [id number] Philip Payne , PT Physical Therapy, [address] [address] 08/15/2019 09:28:07 08/15/2019 12:56:01 Low back pain 205558698 M54.5 Patient Goals: Be able to sleep through the night, move in bed, transfer, sit, bend, lift and carry without limitation s due to back pain.(08/02) She is now sleeping through the night and transferri ng without limitation s. She still has limitation s to sitting beyond 30 minutes, bending, lifting and carrying secondary to left-sided buttock and posterior thigh pain that has been improving. We will continue these goals. Clinical Goals: 1. Demonstrat e pain free trunk range of motion. 2. Demonstrat es sufficient trunk muscular stability to meet functional demands.() she continues to have asymmetric ally limited left posterior thigh pain with forward flexion. Trunk muscular stability is improving with her current exercise program. We will continue these goals. Treatment plan: Physical therapy to include therapeuti c exercise and manual therapy as needed for 6 more visits over 12 weeks. [id number] Philip Payne , [facility], [address] [address] 09/06/2019 08:59:54 09/06/2019 11:44:20 Low back pain 720079957 M54.5 Patient Goals: Be able to sleep through the night, move in bed, transfer, sit, bend, lift and carry without limitation s due to back pain.(08/02) She is now sleeping through the night and transferri ng without limitation s. She still has limitation s to sitting beyond 30 minutes, bending, lifting and carrying secondary to left-sided buttock and posterior thigh pain that has been improving. We will continue these goals. Clinical Goals: 1. Demonstrat e pain free trunk range of motion. 2. Demonstrat es sufficient trunk muscular stability to meet functional demands.() she continues to have asymmetric ally limited left posterior thigh pain with forward flexion. Trunk muscular stability is improving with her current exercise program. We will continue these goals. Treatment plan: Physical therapy to include therapeuti c exercise and manual therapy as needed for 6 more visits over 12 weeks. [id number] Philip Payne , [facility], [address] [address] 09/27/2019 09:05:05 09/27/2019 11:13:39 Low back pain 194074676 M54.5 Patient Goals: Be able to sleep through the night, move in bed, transfer, sit, bend, lift and carry without limitation s due to back pain.(08/02) She is now sleeping through the night and transferri ng without limitation s. She still has limitation s to sitting beyond 30 minutes, bending, lifting and carrying secondary to left-sided buttock and posterior thigh pain that has been improving. We will continue these goals. Clinical Goals: 1. Demonstrat e pain free trunk range of motion. 2. Demonstrat es sufficient trunk muscular stability to meet functional demands.() she continues to have asymmetric ally limited left posterior thigh pain with forward flexion. Trunk muscular stability is improving with her current exercise program. We will continue these goals. Treatment plan: Physical therapy to include therapeuti c exercise and manual therapy as needed for 6 more visits over 12 weeks. [id number] Philip Payne , PT Physical Therapy, [facility] [address] [place] [address] 10/21/2019 16:27:47 10/24/2019 09:42:29 Low back pain 490428671 M54.5 Patient Goals: Be able to sleep through the night, move in bed, transfer, sit, bend, lift and carry without limitation s due to back pain.(08/02) She is now sleeping through the night and transferri ng without limitation s. She still has limitation s to sitting beyond 30 minutes, bending, lifting and carrying secondary to left-sided buttock and posterior thigh pain that has been improving. We will continue these goals. Clinical Goals: 1. Demonstrat e pain free trunk range of motion. 2. Demonstrat es sufficient trunk muscular stability to meet functional demands.() she continues to have asymmetric ally limited left posterior thigh pain with forward flexion. Trunk muscular stability is improving with her current exercise program. We will continue these goals. Treatment plan: Physical therapy to include therapeuti c exercise and manual therapy as needed for 6 more visits over 12 weeks. [id number] Jaskaran Reich MD Rheumatol sara, [facility] [address] [place] [address] 11/09/2019 09:59:03 11/09/2019 10:52:43 Systemic lupus erythematosus 08613453 M32.9 Patient is doing well, labs reviewed, not all labs are back yet. Continue plaquenil and prednisone . Sunscreen as needed. Low back pain 583906116 M54.5 I counselled the patient on the side effects of naproxen. If patient to be taking more naproxen per week, gabapentin is a better option. Chronic low back pain 27 0708015 M54.5 [id number] Elly Dc MD , [facility], OFFICE [address] [place] [address] 12/01/2019 10:52:15 12/01/2019 12:30:49 Adult health examination 045269719 Z00.00 see Risk Assessment and Lifestyle Change Counseling section above Counseling 455632572 Z71 .9 Depression screening 171 834604 Z13.89 depression screening tool administer ed, entered into emr, scored and discussed, time greater than 7.5 minutes Screening for malignant neoplasm of cervix 221522986 Z12.4 Thrombocyt openic disorder 538321558 D69.6 Dr Mason following. Recurrent major depressive episodes 717278130 F33.9 Struggling with life stressors and sleep issues and depression .Continue wellbutrin . Magnesium for sleep. Systemic l upus erythematosus 55099674 M32.8 Doing well with her current rheumatolo gist. Continue current medication s and follow up. Hearing loss 40324801 H9 1.91 Gradual hearing loss r ear. [id number] Elly Dc MD , [facility], OFFICE [address] [place] [address] 02/02/2020 15:37:11 02/03/2020 08:40:01 Cough 15173471 R05 Patient with 1 week of cough and now with some chest tightness and lump in throat. Discussed that patient could have GERD or Covid.Cons ider trial of Tums. Stop vitamin C.Call if not better or if worsening at all.On plaquenil for her lupus. Systemic l upus erythematosus 57513416 M32.8 Doing well with her current rheumatolo gist. On plaquenil but may not have next month. [id number] Alejandro Schmidt MD , [facility], OFFICE [address] [place] [address] 03/25/2020 09:44:52 03/27/2020 14:42:01 Impacted cerumen 33578152 H61.22 crackling in left earplaced in colace , then tip, now unable to hear from that left earno hx of occlusive cerumentri ed syringe lavage, too strong mechanism of injury discussedr ec getting lavage bulb at [facility] with pinna traction, then time to dryreassur redreturn for lavage thursday if needed [id number] Rubin Mason [place] [facility] [place] [address] [address] 05/14/2020 11:14:52 05/28/2020 07:29:38 Systemic lupus erythematosus 51037902 M32.9 Patient is doing ok, labs reviewed, normal except for chronicall y low C4 and plts at 55. Patient is having bruising and she has a previous history of ITPs. I will give a short course of prednisone and repeat CBC and reassess. If bleeding or worsning of her symptoms patient to let me know and to get in touch with her hematologi st. Continue plaquenil and prednisone . Sunscreen as needed. Lightheadedness [id number] 8 R42 I asked the patient to have a visit with her pcp, she needs her orthostati cs checked and she may need further evaluation . Depressive disorder 9728 9007 F32.9 Along with anxiety. Patient is having a stressful situation at home. Patient to discuss with pcp some antidepres jorge options besides wellbutrin . [id number] Elly Dc MD FP, [facility], OFFICE [address] [place] [address] 05/16/2020 08:34:38 05/16/2020 14:40:29 Thrombocytopenic disorder [id number] D69.6 Of heightened concern d/t recent episodes of dizziness and increased bleeding risk. No evidence of bleeding today and normal H&H on 05/08/20. Will repeat CBC in 1 week. Reviewed indication s for sooner follow-up. Dizziness 137924537 R42 Postural dizziness vs. vestibular neuritis. Declines in-office visit for further evaluation . Will continue to monitor closely. Will ask a nursing friend to come take BP. Advised to focus on hydration and increasing sodium intake. May trial nasal saline rinses and anti-hista mine for allergies. [id number] Elly Dc MD FP, [facility], OFFICE [address] [place] [address] 06/08/2020 15:08:41 06/08/2020 16:31:48 Tachycardia 2294438 R00.0 Slightly tachycardi ac with normal rhythm. Could be attributed to increased stress and recent prednisone burst. Will trial low dose propanolol to see if it helps lower HR, BP, and acute stress. Check TSH, BMP, and CBC on 06/18/20. Advised on close follow-up w/ PCP. Medication monitoring 39 9855470 Z51.81 Needs annual eye exam while on hydroxychl oroquine. Elevated blood-pressure reading without diagnosis of hypertension 838608564 R03.0 Likely attributed to increased stress and recent prednisone burst. Will trial low dose propanolol to see if it helps lower HR, BP, and acute stress. [id number] Elly Dc MD , [facility], OFFICE [address] [place] [address] 12/11/2020 09:19:31 12/11/2020 12:42:06 Adult health examination 382163397 Z00.00 see Risk Assessment and Lifestyle Change Counseling section above Your personal health plan: Continue to work on stress management . Advanced care planning: We discussed getting a new health care proxy. You will think about this. Exercise:c ontinue activity. Vaccines: covid vaccine this year. Preventati ve screening: pap 2024 mammo at 48 Counseling 373912977 Z71 .9 including cardiovasc ular risk reduction counseling Depression screening 171 676433 Z13.89 depression screening tool administer ed, entered into emr, scored and discussed, time greater than 7.5 minutes Thrombocyt openic disorder 057900922 D69.6 Followed by hematology and Dr Mason. Recurrent major depressive episodes 092817123 F33.9 Patient with significan t life stressors and situationa l disturbanc es. Continue wellbutrin add lexapro. Follow up with portal message in . Systemic l upus erythematosus 59973067 M32.[address] Mason. Continue current meds. Hearing loss 45550133 H9 1.91 Gradual hearing loss r ear. refer for testing [id number] Rubin [place] [facility] [address] [address] 01/10/2021 07:39:53 01/10/2021 10:55:56 Idiopathic thrombocytopenic purpura 71485284 D69.3 s/p Rituxan infusions. Plts numbers improved. No bruising or bleeding. Following with hematology . Patient counselled to contact office if any new symptoms. Systemic l upus erythematosus 40297691 M32.9 Patient is doing well for now. Continue plaquenil and prednisone 2 mg. Patient to follow with ophthalmol ogy. Naproxen as needed. Monitor labs (standing orders). COVID vaccine discussed. Lateral ep icondylitis of left humerus 6709687245 72204 M77.12 Ice and naproxen for 2 weeks. Refer to therapy. Consider injections if no improvemen t. [id number] Philip Payne , PT Physical Therapy, [facility] [address] [place] [address] 01/22/2021 14:04:51 01/22/2021 15:55:20 Lateral epicondylitis of left humerus 4249394884 99083 M77.12 45 year old {{female* male}} with findings most consistent with {{acute ch ronic* rec urrent}} Left lateral epicondyla lgia following trauma. Patient has significan t functional limitation in their {{activiti es of daily living act ivities of daily living and work capacity* activities of daily living and exercise capacity a ctivities of daily living and recreation }}. Skilled physical therapy is needed to safely and progressiv kelli address impairment s and functional limitation s as outlined below. Patient Goals: Be able to lift, carry , reach and grasp without limitation s to the left elbow pain for ADLs and work Clinical Goals: 1. Demonstrat e symmetric pain free active, passive and resisted motions of the {{neck and upper extremitie s shoulder elbow, forearm and wrist* jaki nk and lower extremitie s hip knee ankle}}. 2. Demonstrat e sufficient muscular endurance to meet functional demands. Treatment Plan: Patient to return for {{4 6 8* 1 0}} visits over {{4 8 12*} } weeks. We expect significan t change in pain, impairment and function in this time frame. Treatment to Include: Therapeuti c exercise and manual therapy [id number] Elly Dc MD FP, [facility], OFFICE [address] [facility] [place] [address] 01/24/2021 14:05:39 01/24/2021 14:47:12 Recurrent major depressive episodes 431236266 F33.9 Patient with significan t life stressors and situationa l disturbanc es. Continue wellbutrin and lexapro 10mg. Follow up with portal message in . Candidiasis of mouth 797 13136 B37.0 Patient feeling somewhat better but still with thrush. Change to itraconazo le due to drug interactio ns with diflucan. Follow up if not better Hypoglycemia 755851073 E 16.2 discussed no symptoms. [id number] Philip Payne , PT Physical Therapy, [facility] [address] [place] [address] 01/30/2021 16:13:01 01/31/2021 21:18:50 Lateral epicondylitis of left humerus 7532327509 67837 M77.12 45 year old {{female* male}} with findings most consistent with {{acute ch ronic* rec urrent}} Left lateral epicondyla lgia following trauma. Patient has significan t functional limitation in their {{activiti es of daily living act ivities of daily living and work capacity* activities of daily living and exercise capacity a ctivities of daily living and recreation }}. Skilled physical therapy is needed to safely and progressiv kelli address impairment s and functional limitation s as outlined below. Patient Goals: Be able to lift, carry , reach and grasp without limitation s to the left elbow pain for ADLs and work Clinical Goals: 1. Demonstrat e symmetric pain free active, passive and resisted motions of the {{neck and upper extremitie s shoulder elbow, forearm and wrist* jaki nk and lower extremitie s hip knee ankle}}. 2. Demonstrat e sufficient muscular endurance to meet functional demands. Treatment Plan: Patient to return for {{4 6 8* 1 0}} visits over {{4 8 12*} } weeks. We expect significan t change in pain, impairment and function in this time frame. Treatment to Include: Therapeuti c exercise and manual therapy [id number] MILLER Alves , [facility], OFFICE [address] [place] [address] 03/04/2021 14:52:14 03/05/2021 15:05:02 Candidiasis of skin 14200705 B37.2 axillary eruption, ddx includes tinea, advised topical cream rx as written below , no longer than 14 days update for failure to improve keep area dry as often as possible Pain in throat 431586113 R07.0 chronic thrush, throat culture and yeast culture sent today, PND visible pilar erythema, no exudates minimal tongue coating, Posterior rhinorrhea 758 44665 R09.82 trial claratin (not necessaril y claratin d) for visualized pnd update in 5 days if improving sore throat symptom. [id number] Marlyn Oviedo D.O. , [facility], OFFICE [address] [place] [address] 03/12/2021 14:13:46 03/13/2021 07:34:25 Syncope 233683170 R55 Reviewed case from Orth ostatics are negativeEK G WNLI am concerned about seizure like activity vs arrythmiaR ecommend labsDiscus sed possibly discontinu ing bupropion, Holter monitor, CT scan, evaluation with neurology. Declines all these measures at this point.Advi sed to caution with/avoid ing driving.Ag clare to follow up with PCP in one week to discuss further.ER precaution s given [id number] Elly Dc MD , [facility], OFFICE [address] [place] [address] 03/20/2021 15:27:55 03/20/2021 16:03:52 Elevated blood-pressure reading without diagnosis of hypertension 696082376 R03.0 please check bp at home. update with numbners. Syncope 404376149 R55 We will check echo,. Patient story consistent with vasovagal from lifting something heavy. No other concerning symptoms. Follow up with any recurrence . Candidiasis of mouth 839 09220 B37.0 Ongoing ? yeast culture neg vs other. Trial of chlorhexad ine and if not better consider oral surgery for biopsy. Candidiasis of skin 4912 1936 B37.2 treat topically Active or passive immunization 432053369 Z23 check for immunity [id number] Marlyn Oviedo D.O. , [facility], OFFICE [address] [place] [address] 04/23/2021 08:45:51 04/23/2021 09:09:25 Hemangioma of skin 48640572 D18.01 Seen with AG, RTO for removal due to location/i rritation [id number] MD Christal Aguirre[address] [address] 05/09/2021 09:54:01 05/09/2021 15:38:55 Systemic lupus erythematosus 46819183 M32.9 Patient is doing well for now. Continue plaquenil and prednisone 2 mg. Patient to follow with ophthalmol ogy. Naproxen as needed. Increased prednisone as needed for episodes of rash, do not do more that 3-4 days a months. Monitor labs (standing orders).Zoya malik got the COVID vaccine. Idiopathic thrombocytopenic purpura 84164638 D69.3 s/p Rituxan infusions. Plts numbers improved. No bruising or bleeding. Following with hematology . Patient counselled to contact office if any new symptoms. Pain in throat 286376399 R07.0 Chronic.Cu lture did not show yeast.Refe r to ENT [id number] Yonatan Yousif PA-C , [facility], OFFICE [address] [place] [address] 05/21/2021 09:04:00 05/21/2021 11:58:39 Neoplasm of uncertain behavior of skin 00648113 D48.5 R scapula, inflamed hemangioma , sent for path Hemangioma of skin 91343 006 D18.01 R scapula, benign [id number] Rubin Mason MD [facility], [address] [address] 11/11/2021 09:46:42 11/12/2021 06:20:40 Systemic lupus erythematosus 06120109 M32.9 Patient is doing well for now. Continue plaquenil and prednisone 2 mg. Patient to follow with ophthalmol ogy. Naproxen as needed. Increased prednisone as needed for episodes of rash, do not do more that 3-4 days a months. Monitor labs (standing orders).Zoya malik got the COVID booster and the flu shot. Patient asked about more info on [employer]. No ACR recommenda tions for now. Idiopathic thrombocytopenic purpura 63420657 D69.3 s/p Rituxan infusions. Plts numbers improved. No bruising or bleeding. Following with hematology . Patient counselled to contact office if any new symptoms. [id number] Elly Dc MD , [facility], OFFICE [address] [place] [address] 12/12/2021 09:57:39 12/12/2021 10:46:22 Adult health examination 461859621 Z00.00 see Risk Assessment and Lifestyle Change Counseling section above Your personal health plan: Advanced care planning: We discussed your HCP. Vaccines: tetanus 2022 Preventati ve screening: pap 2024ool testing this year.mammo at 48 Counseling 810491118 Z71 .9 including cardiovasc ular risk reduction counseling Depression screening 171 468482 Z13.31 depression screening tool administer ed, entered into emr, scored and discussed, time greater than 7.5 minutes Screening for alcohol abuse 639311101 Z13.39 Lupus erythematosus 2008 50649 L93.0 Recurrent major depressive episodes 632031053 F33.9 Patient with significan t life stressors and situationa l disturbanc es. Continue wellbutrin and lexapro 10mg. Follow up with portal message in [employer]. Thrombocyt openic disorder 396067610 D69.6 Followed by hematology and Dr Mason. Vitamin D deficiency 347 00051 E55.9 continue 1000U daily. Screening mammography 24 547204 Z12.31 Screening for malignant neoplasm of colon 531594728 Z12.11 Amenorrhea 33075502 N91. 2 check labs with next labs. Lumbar radiculopathy 128 195425 M54.16 r hip pain with mild radiculopa thy. refer to PT. Nail changes 296098040 L 60.9 check vitamin D Pain in ri ght hip joint 5358907162 26447 M25.551 refer to PT [id number] Philip Payne , PT Physical Therapy, [facility] [address] [place] [address] 01/02/2022 16:52:37 01/06/2022 10:33:29 Pain in right hip joint 2954348559 55544 M25.551 46 year old {{female* male}} with findings most consistent with {{acute ch ronic* rec urrent}} right hip pain with movement coordinati on impairment . She has tingling in the forefoot of the right foot of uncertain origin; back and hip range of motion do seem to play a role Patient has significan t functional limitation in their {{activiti es of daily living act ivities of daily living and work capacity a ctivities of daily living and exercise capacity* activities of daily living and recreation }}. Skilled physical therapy is needed to safely and progressiv kelli address impairment s and functional limitation s as outlined below. Patient Goals: Able to walk 2-3 miles for exercise without limitation s to hip pain. To abolish the tingling in her right foot. Clinical Goals: 1. Demonstrat e symmetric pain free active, passive and resisted motions of the {{neck and upper extremitie s shoulder elbow, forearm and wrist trun k and lower extremitie s* hip kne e ankle}}. 2. Demonstrat e sufficient muscular endurance to meet functional demands. Treatment Plan: Patient to return for {{4 6 8* 1 0}} visits over {{4 8 12*} } weeks. We expect significan t change in pain, impairment and function in this time frame. Treatment to Include: Therapeuti c exercise and manual therapy [id number] Philip Payne , PT Physical Therapy, [address] [address] 01/16/2022 10:36:03 01/16/2022 15:57:12 Pain in right hip joint 7840236973 18849 M25.551 46 year old {{female* male}} with findings most consistent with {{acute ch ronic* rec urrent}} right hip pain with movement coordinati on impairment . She has tingling in the forefoot of the right foot of uncertain origin; back and hip range of motion do seem to play a role Patient has significan t functional limitation in their {{activiti es of daily living act ivities of daily living and work capacity a ctivities of daily living and exercise capacity* activities of daily living and recreation }}. Skilled physical therapy is needed to safely and progressiv kelli address impairment s and functional limitation s as outlined below. Patient Goals: Able to walk 2-3 miles for exercise without limitation s to hip pain. To abolish the tingling in her right foot. Clinical Goals: 1. Demonstrat e symmetric pain free active, passive and resisted motions of the {{neck and upper extremitie s shoulder elbow, forearm and wrist trun k and lower extremitie s* hip kne e ankle}}. 2. Demonstrat e sufficient muscular endurance to meet functional demands. Treatment Plan: Patient to return for {{4 6 8* 1 0}} visits over {{ 8 12*} } weeks. We expect significan t change in pain, impairment and function in this time frame. Treatment to Include: Therapeuti c exercise and manual therapy [id number] Philip Payne , PT Physical Therapy, [address] [address] 01/30/2022 10:38:41 01/30/2022 12:31:04 Pain in right hip joint 1963863701 57574 M25.551 46 year old {{female* male}} with findings most consistent with {{acute ch ronic* rec urrent}} right hip pain with movement coordinati on impairment . She has tingling in the forefoot of the right foot of uncertain origin; back and hip range of motion do seem to play a role Patient has significan t functional limitation in their {{activiti es of daily living act ivities of daily living and work capacity a ctivities of daily living and exercise capacity* activities of daily living and recreation }}. Skilled physical therapy is needed to safely and progressiv kelli address impairment s and functional limitation s as outlined below. Patient Goals: Able to walk 2-3 miles for exercise without limitation s to hip pain. To abolish the tingling in her right foot. Clinical Goals: 1. Demonstrat e symmetric pain free active, passive and resisted motions of the {{neck and upper extremitie s shoulder elbow, forearm and wrist trun k and lower extremitie s* hip kne e ankle}}. 2. Demonstrat e sufficient muscular endurance to meet functional demands. Treatment Plan: Patient to return for {{4 6 8* 1 0}} visits over {{ 8 12*} } weeks. We expect significan t change in pain, impairment and function in this time frame. Treatment to Include: Therapeuti c exercise and manual therapy [id number] Rubin Mason MD Rheumatol [facility], [facility] [address] [place] [address] 05/22/2022 09:25:19 05/22/2022 12:37:55 Systemic lupus erythematosus 24684957 M32.9 Patient is doing well for now. Continue plaquenil and prednisone 2 mg. Patient to follow with ophthalmol sara. Naproxen as needed. Increased prednisone as needed for episodes of rash, do not do more that 3-4 days a months. Monitor labs (standing orders).Zoya malik got the COVID series.Cou nselled to get Shingrix vaccine. Counselled about COVID precaution s. RTC in 6 months or sooner if needed. Idiopathic thrombocytopenic purpura 35883182 D69.3 s/p Rituxan infusions. Plts numbers improved. No bruising or bleeding. Following with hematology . Patient counselled to contact office if any new symptoms. [id number] Kallie Arriaga MD , [facility], OFFICE [address] [place] [address] 08/26/2022 15:44:03 08/26/2022 16:57:15 Sebaceous cyst of skin 716996743 L72.3 firm and erythemato us, tenderno fluctuance tx as belowinstr warm compresses f/u if not improving w tx, consider I and D if fluctuant [id number] Clarence Muñoz MD , [facility], OFFICE [address] [place] [address] 10/28/2022 10:15:28 10/28/2022 11:34:43 Dysuria 66924821 R30.0 Urinary tr act infectious disease 16241724 N39.0 [id number] Hilaria Serrano MD , [facility], OFFICE [address] [place] [address] 12/01/2022 09:30:08 12/01/2022 14:03:53 Painful urging to urinate 38925029 R30.0 Patient instructed to push fluids, to follow up for persistent or worsening symptoms or fever or back pain. Urinary tr act infectious disease 92691477 N39.0 send urine cxstart bactrim for presumed UTIdiscuss ed preventati ve, pt will use macrobid daily prn after sexcall if concerns [id number] Elly Dc MD , [facility], OFFICE [address] [facility] [place] [address] 12/19/2022 09:04:28 12/19/2022 09:58:23 Adult health examination 504829299 Z00.00 Your personal health plan:Petr nue doing yogaContin ue following with rheumatolo gy and hematology Advanced care planning: proxy up to dateExerci se: yoga, walking, pottery, weightsVac cines: flu declined, Tdap duePrevent ative screening: pap NIL, HPV- 2019, due 2024; colonoscop y 2022, due 2032; mammo scheduled for 03/13, repeat bone density due Lupus erythematosus 2008 02597 L93.0 Stable on hydroxychl oroquine and prednisone 1mg QD. No retinopath y on exam 05/2022. Repeat in 05/2023. New rheumatolo gist is Dr Brooke. Neutropenic disorder 303 380235 D70.9 Stable at last CBC 03/2022. Following with Dr Nix, has appt in 1 month and is doing repeat labs then. Recurrent major depressive episodes 570836431 F33.9 Stable on wellbutrin . States mood is good. Only mild sleep disruption . Continue. Vitamin D deficiency 347 22501 E55.9 At goal with supplement ation. Continue. Family his tory of lblbh-[id number] deficiency 015606585 Z83.49 Mother and aunt with this. Pt without resp sx. Recurrent urinary tract infection 910200444 N39.0 3 infections within last 6 months. Perimenopa usal, no vaginal dryness. Most recent culture negative despite sx. Pt has frequent hematuria. ? nephrolith iasis vs vaginal atrophy vs incomplete voiding. Pt usually makes appt the day that sx arise. Encouraged her to have pelivc exam next time to assess possiblity of fissure Osteopenia 614677906 M85 .80 Last BMD with t score -1.5 at femoral neck. Pt on terminal gauger prednisone therapy. Repeat due. [id number] ZOYA Stinson, [facility], OFFICE [address] [facility] [place] [address] 01/01/2023 13:27:57 01/01/2023 15:18:13 Active or passive immunization 049496724 Z23 Candidal vulvovaginitis 85480298 B37.31 Partially treated yeast infection. Initiate fluconazol e 150mg tablet every 3 days for 1 week. Bacterial vaginosis/ vaginitis probe, NG/CT testing as well. Follow up if no improvemen t in vaginal symptoms. Screening for disorder 928150178 Z11.3 3 new partners in last 1.5yr. Requests repeat STI screen Menopausal syndrome 1237 59525 N95.9 Wondering where she is in menopause, wants hormones checked. [id number] ZOYA Stinson, [facility], OFFICE [address] [facility] [address] 02/13/2023 08:16:18 02/13/2023 09:07:44 Recurrent urinary tract infection 270319254 N39.0 Pt with recurrent postcoital UTI sx managed at home with 1 dose nitrofuran toin after sex PRN. She prefers not to be taking antibiotic s this frequently . Initiate trial hiprex x 2 months, then FU. If sx resolve, continue hiprex. If sx continue to happen after sex, start vaginal estradiol. Recurrent major depression 04475204 F33.9 Depression stable on 150mg SR. Taper to 75mg x 1 week and monitor mood, then come off if feeling stable. FU with portal update. Postcoital bleeding 4888 0000 N93.0 No indication s of bleeding source on exam today. Recent STI screen neg, pt is now monogamous with partner. Continue to monitor, consider trial estradiol suppositor y if recurs [id number] ZOYA Stinson, [facility], OFFICE [address] [facility] [place] [address] 04/17/2023 08:26:05 04/17/2023 09:24:27 Recurrent urinary tract infection 744966619 N39.0 Pt with no further UTI since started hiprex. Swallowing the pills has been difficult due to size and dryness. Taking with milk/juice helps. Will try with applesauce . Continue hiprex and FU with further UTI sx. Recurrent major depression 61483785 F33.9 Stable off antidepres jorge. Coping well with stress and overwhelm. FU as needed. Postcoital bleeding 4888 0000 N93.0 No further bleeding x 2mo. Continue to monitor. Initiate trial vaginal estradiol if sx return. Vaccine ad verse reaction 910936669 T50.Z95A Pt with adverse reaction to shingrix vs moderna covid shot. Unsure which. Due for next shingrix 2mo after first. Advise premed with benadryl and wait 30 mins in pharmacy in case of adverse reaction. [id number] ZOYA Stinson , [facility], OFFICE [address] [place] [address] 06/02/2023 09:58:45 06/02/2023 10:30:05 Carpal tunnel syndrome of right wrist 1778470248 96637 G56.01 Hx and exam consistent with carpal tunnel syndrome. Pt has a brace, encouraged her to use nightly as well as during periods of rest during the day. Refer to sports medicine for considerat ion of injection. Modify yoga, guitar playing, and other activities to reduce sx. FU if sx do not improve for hand surgeon referral. Right tars al tunnel syndrome 6475322908 74428 G57.51 Mild, sx reproducib le with Durkan's of tarsal tunnel. Sx only occur with certain driving positions. Encouraged pt to adjust car seat to reduce stress on ankle. FU if sx do not improve. [id number] Elly Dc MD , [facility], OFFICE [address] [place] [address] 06/19/2023 08:16:28 06/19/2023 08:53:18 Allergic rhinitis 88980156 J30.9 Better with rhinocort and claritin D daily. Encouraged to work on trying without D. Lupus erythematosus 2009 26192 L93.0 Transition ing to new rheumatolo gy. Off of prednisone . Having some morning stiffness. On hydroxychl oroquine. Neutropenic disorder 303 002356 D70.9 stable related to SLE. Vitamin D deficiency 347 89620 E55.9 continue 1000U daily. Menopausal syndrome 1237 30949 N95.9 Was having night sweats. Better now. Uses gabapentin at bedtime and all better. check lh and fsh next blood work. 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 Recurrent urinary tract infection 859233317 N39.0 better with hipprex. Carpal dimitrios venice syndrome of right wrist 4414750701 02289 G56.01 R wrist with numbness and tingling. 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 If doesn't improve consider work up for neck nerve impingemen t. Systemic l upus erythematosus [id number] M32.[address] Mason. Continue current meds. Major depr ession in remission [id number] F32.5 Doing well off of meds. Stable overall. [id number] Michele Ruiz MD Sports Medicine, [facility] [address] [place] [address] 06/23/2023 15:31:35 06/25/2023 10:18:43 Carpal tunnel syndrome [id number] G56.01 Brionna is a 48-year-ol d female with right wrist and hand sensory symptoms that I believe are due to carpal tunnel syndrome. I did perform a brief ultrasound of her wrist revealing a median nerve measuring 11 mm? ? ? at the carpal tunnel. It was approximat kelli 9 mm? ? ? at the level of the pronator quadratus. This is consistent with mild carpal tunnel syndrome. I discussed options. Including splinting, corticoste roid injections , and surgery. She has been wearing a volar splint for 3 weeks and states she has had some improvemen t already in her symptoms. I advised continuing to wear this at night and have adjusted her splint to a neutral position. She will follow-up with me in 6 weeks for reevaluati on. [id number] Michele Ruiz MD Sports Medicine, [facility] [address] [place] [address] 08/11/2023 10:08:52 08/13/2023 15:52:21 Carpal tunnel syndrome [id number] G56.01 Brionna is a 48-year-ol d female with right hand and wrist tingling of some uncertain etiology. She describes sensory symptoms in all of her fingers and may have an element of both carpal tunnel as well as cubital tunnel syndrome causing her symptoms. She did have some improvemen t with volar splinting but continues to have ongoing symptoms. Her previous ultrasound of the median nerve was only mildly enlarged. We discussed all this with her today as well as discussing further options for treatment. We briefly discussed a possible carpal tunnel corticoste roid injection today which would hopefully be both diagnostic and therapeuti c. 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 We did decide to proceed with nerve conduction studies which will hopefully provide a more firm diagnosis as a cause of her symptoms. She will plan to schedule these at [facility] and sports asked that she follow up with me in 6 weeks for reevaluati on. Ulnar nerv e entrapment at elbow [id number] G56.21 [id number] ZOYA Stinson , [facility], OFFICE [address] [place] [address] 10/02/2023 08:23:21 10/02/2023 10:54:45 Candidal intertrigo [id number] B37.2 Pt with well circumscri bed erythemato us R axillary rash with shiny surface consistent with candidal intertrigo . Ketoconazo le previously only somewhat helpful. Rec nystop powder which she has at home. Avoid deodorant x 2 weeks and do nystop BID. If not improving, may consider course of oral fluconazol e. [id number] Michele Ruiz MD Sports Medicine, [facility] [address] [place] [address] 10/06/2023 09:33:12 10/08/2023 13:36:54 Carpal tunnel syndrome 61732347 G56.01 Brionna is a 48-year-ol d female with right hand pain due to carpal tunnel syndrome. Her recent nerve conduction studies demonstrat e mild changes in the median nerve consistent with compressio n neuropathy at the carpal tunnel. I reviewed this diagnosis with her today as well as discussing further treatment. We discussed continued splinting and conservati ve management , corticoste roid injections , occupation al therapy, and potential surgery. With her symptoms improving we have decided against a corticoste roid injection today. I did provide her a referral to Occupation al Therapy to see if this helps her more volar wrist pain as well as for treatment of her carpal tunnel syndrome. She will plan to contact me via the patient portal in 8-10 weeks with an update. If his symptoms do not continue to improve or are limiting her daily activity and happy to see her back for a carpal tunnel injection at any time in the future. [id number] Yonatan Yousif PA-C , [facility], OFFICE [address] [facility] [address] 11/10/2023 09:57:57 11/10/2023 11:14:14 Onychomycosis of toenails [id number] B35.1 L great toenail and R 3rd toenail without PNF involvemen tuse oTc pharmaceut ical grade tea tree oil, one drop twice daily x 3 weeksaware nail may fall offtrim and cover with band ain prnThursda y [place] with small brush applicator https:// YouView .au/tea-tr ee-oil/ Might benefit from Use the 1:4 foot soaks white vinegar and water x 15 mins each day x 1-2 weeks. Dry thoroughly , allow feet to breathe throughout day if possible. Products we discussed: https://ECS Tuning/Thursda y-Plantati on- goldy-Natura lly-Cleans es/dp/B00B QXQ7CU/ref =asc_df_B0 2NJZP9IX/? tag=hyprod -20&linkCo de=df0&hva ubw=549776 645316&hvp os=&hvnetw =g&hvrand= [id number]& hvpone=&hv ptwo=&hvqm t=&hvdev=c &hvdvcmdl= &hvlocint= &hvlocphy= [id number]&hv targid=angie -[id number] 6837&psc=1 &wryu=2142 [id number] Irritant c ontact dermatitis 120978192 L24.9 chronic R axillary rash, unresponsi ve to po and topical antifungal s, suspect contact derm. Defers biopsy today. Scratch/it ch cycle discussed; rash improves 80% in 2 weeks if scratching stopped. Use cold to decrease itch impulse. Avoid triggers.U se gentle soaps (Dr. Rosss [place]; avoid Ivory, Dial or [place]). Moisturize each day to improve skin barrier function. (oTc Cerave, Sarmarlon, Vanicream) .ALL Free & Clear preferred laundry products, no dryer sheets, etc.Avoid prolonged bathing with hot water. Recommend cetirizine each AM, +/- benadryl as tolerated at PM. Use topical steroid (TCS) at night x 14 days.If no change, consider biopsy if off TCS x 1 week or referral to test lead application testing for patch testing. Hold shavingPro ducts discussed: https://gilda Windation/http s://www.ClassifEye/produc ts/liquid- laundry-de tergent/al DealitLive.com-free-ksasi ar-liquid- laundry-de tergent-th e-original .html Multiple s kin tags on neck [id number] L91.8 benign, assoc with friction.c an use LN2 for removal Long-term current use of immunosuppressive drug [id number] Z79.60 [id number] ZOYA Stinson FP, [facility], OFFICE [address] [facility] [place] [address] 12/31/2023 10:02:51 12/31/2023 10:58:47 Adult health examination [id number] Z00.00 Your personal health plan:Petr nue doing yogaContin ue following with rheumatolo gy and hematology Advanced care planning: proxy up to dateExerci se: yoga, walking, pottery, weights, HIITVaccin es: flu due, tdap reven tative screening: pap NIL, HPV- 2019, due 2024; colonoscop y 2022, due 2032; mammo due 03/2024, repeat bone density due Depression screening 171 086469 Z13.31 depression screening tool administer ed Screening for alcohol abuse 313137682 Z13.39 Alcohol use screening tool administer ed Screening mammography 24 095671 Z12.31 Systemic l upus erythematosus 82795407 M32.9 Stable on hydroxychl oroquine. Continue following with Dr Brooke Neutropenic disorder 303 430992 D70.9 Stable at last CBC 05/2023. Following with Dr Nix. Thrombocyt openic disorder 572983614 D69.6 Stable on labs 05/2023. Follow with Dr Nxi. Recurrent urinary tract infection 819638094 N39.0 Pt with no further UTI since started hiprex. Continue. Pain in ri ght hip joint [id number] 18683 M25.551 Pt with right groin and lateral hip pain below iliac crest. Refer to PT and do hip x ray for bony abnormalit y given groin pain. Contact dermatitis 15121 004 L25.9 Pt with likely contact dermatitis of R axilla improving with unscented products. Itch minimal. Start triamcinol one BID x 1-2w and FU PRN Postmenopausal state 764 92714 Z78.0 Major depr ession in remission 90778234 F32.5 Stable off meds [id number] Elly Dc MD , [facility], OFFICE [address] [place] [address] 06/24/2024 07:45:07 06/24/2024 09:48:27 Pain in throat 961266249 R07.0 Lupus erythematosus 2008 85709 L93.0 Patient on plaquenil. She is not getting consistent care from rheum at this time. Transition ing to [facility]. Candidiasis of mouth 797 80450 B37.0 3 weeks of sore throat and white tongue. Will treat with fluconazol e and if not better we will evaluate further. Thrombocyt openic disorder 102984833 D69.6 Followed by hematology and Dr Mason. [id number] Chirag Erazo MD , [facility], OFFICE [address] [place] [address] 07/18/2024 10:30:30 07/18/2024 10:58:46 Candidiasis of mouth 56917283 B37.0 persistent /recurrent with poss esophagiti s as well. High dose itraconazo le. Follow up if not improving or new symptoms develop. [id number] DO CASSIDY NAIDU, [facility], OFFICE [address] [place] [address] 11/23/2024 16:15:11 11/25/2024 08:47:05 Burst blood vessel 753639924 R58 right thumb pain and discolorat ion [...] by Organization Details LastModified Time None Recorded Advance Directives Directive None Recorded Payers Encounter Date Sequence Insurance Name Policy Number Policy Umaña Covered Member ID Umaña Member ID Guarantor Name 11/10/2023 1 [id number] Brionna A Champion [id number] Brionna A Champion 12/31/2023 [facility] [id number] Brionna A Champion [id number] Brionna A Champion 06/24/2024 [facility] [id number] Brionna A Champion [id number] Brionna A Champion 07/18/2024 [facility] [id number] Brionna A Champion [id number] Brionna A Champion 11/23/[address] [place] [address]) [id number] 6 Brionna A Champion [id number] Brionna A Champion Notes Date Note Type Note Provider Name and Address Organization Details Recorded Time 11/10/2023 text/html R axillary rash x 6-7 months, used ketoconazole from 10/2023 visit with ISterbinifine 250 mgs x 10 days48 yo with hx of SLE on hydroxychloroquine, prophylactic abx for UTI Today reports persistent rash in R axilla despite the antifungal treatment.Uses fragrance fee products, all natural deodorant , had in the past. Had in the past and responded to antifungal rash in the past.Scratches at night but not as much during the day Visit start time: 1001 Visit end time: 1031 total 30 Same day documentation start time: 1032 Same day documentation end time: 1038 total: 6 Yonatan Yousif PA-C [address] [place], [address], [facility] 11/10/2023 10:41:43 12/31/2023 text/html Risk Assessment and Lifestyle Change Counseling 50-64Reported bypatient.Coronary Artery Disease Risk Assessment:No Family history of coronary artery disease; No personal history of diabetes; No history of peripheral vascular disease, AAA, or carotid disease; No personal history of coronary artery disease Breast Cancer Risk Assessment:No family history of breast cancer; No history of breast cancer or dcis Colon Cancer Risk Assessment:No family history of colon polyps or cancer; No history of adenomatous colon polyps Lung Cancer Risk Assessment:Never smoked Fracture Risk Assessment:No unexplained fracture Safety Risk Assessment:No evidence of abuse/neglect Diet:Discussed the value of a Mediterranean diet , and eating more fruits and vegetables Exercise counseling:Discussed the importance of daily physical activity Safety:Counseled about protecting skin from the sun and lowering the risk of skin cancer She has been working on weight loss with 25-30 min workout videosJoined the gym and does treadmillDoing interval trainingDoing liftingEating smaller portions, less carb snacksDoing more food prep to have healthy foodsShe was told by OT that she may have thoracic outlet syndrome because she has numbness whenever she raises her hand, possibly due to hunching over the wheel.Carpal tunnel interfering with yoga and she is practicing once weeklyHer R hip is hurting, very achy, hurts first thing in AMShe notices crepitus in her kneesHer armpit rash hasn't gone awayShe has switched to unscented deodorant. ALG gave her a cream for itching which she hasn't usedShe feels like htere's water in her ears. She has crackling. In loud environment she hears static. Has had her hearing tested within the last couple years. ZOYA Stinson [address] [place], [address], [facility] 12/31/2023 13:08:56 06/24/2024 text/html Patient states t hat she feels like she has thrush. Strep negative.She had a lot more tongue coating.She states that a friend had covid and she tested neg.She states that she has lost her voice.She has no f/c. Elly Dc MD [address] [place] [address], [phone], [facility] 06/24/2024 08:23:48 07/18/2024 text/html its been 9 days since medication given for thrush has run out. Immediately following end of medication course pt got a yeast infection, pt took OTC medication and cleared up, it has been about a week since. Voice is hoarse, sore, tongue has white coating and mouth is dry. Notes congestion and swollen lymph nodes. 3 covid tests all negative. Tried claritin D, somewhat helpful. Feels like she has some airway restriction. Every time gets chemo rx gets thrush. No recent chemo. No prednisone. Month ago painful ST, similar to thrush. Strep neg. Rx with fluconazole for 10d, added 5 more. [place] better. 2d after finished flucanazole, got yeat vaginitis, rx otc. Week later throat worse again. 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 NEWTON VOGEL DO [address] [place] [address], [phone], [facility] 11/24/2024 22:55:01 OBGyn Episode No OBEpisode recorded.
[2024-12-13 18:15] LABS: MANUAL DIFF FLAG NO
[2024-12-13 18:31] LABS: Appearance Urine Clear; Color Urine Yellow; Glucose Urine UA Negative (Negative); Leukocyte Esterase Urine Negative (Negative); Nitrite Urine Negative (Negative); PH 6.5 (5.0-9.0); Urine Blood Negative (Negative); Urine Ketones Negative (Negative); Urine Protein Negative (Neg-Trace)
[2024-12-13 18:34] LABS: Bacteria Urine None Seen (None Seen); Hyaline Casts Urine 0-2 /LPF (0-2); RBC Urine 0-2 /HPF (0-2); Squamous Epithelial Cell Urine 0-2 /HPF (0-2); WBC Urine 0-5 /HPF (0-5)
[2024-12-13 18:34] LABS: Alanine Aminotransferase 29 U/L (0-31); Aspartate Amino Transferase 30 U/L (5-31); C Reactive Protein < 0.10 mg/dL (< or = 0.50)
[2024-12-13 18:47] LABS: Basophils Percent Auto 1.3 % (0-2); Eosinophils Absolute Auto 0.1 X10*3/uL (0.0-0.4); Eosinophils Percent Auto 3.4 % (0-4); Hematocrit 39.5 % (37.0-47.0); Hemoglobin 13.2 g/dl (12.0-16.0); Imm Gran Abs Auto 0.01 X10*3/uL (0.00-0.03); Imm Gran Pct Auto 0.3 % (0.0-0.4); Lymphocytes Absolute Auto 1.3 X10*3/uL (1.2-4.9); Mean Corpuscular HGB Conc 33.4 g/dl (31.0-35.0); Mean Corpuscular Hemoglobin 30.1 pg (27.0-33.0); Mean Corpuscular Volume 90.2 fL (80.0-98.0); Mean Platelet Volume 10.9 fL (9.4-12.3); Monocytes Absolute Auto 0.4 X10*3/uL (0.1-1.2); Monocytes Percent Auto 10.9 % (2-11); Neutrophils Absolute Auto 1.4 x10*3/uL (2.0-8.3); Neutrophils Percent Auto 44.1 % (45-73); Platelet Count 328 X10*3/uL (160-400); Red Blood Count 4.38 X10*6/uL (4.20-5.50); Red Cell Distribution Width 12.6 % (11.0-16.0); White Blood Count 3.2 X10*3/uL (4.8-10.8)
[2024-12-13 19:02] LABS: Creatinine Urine 47.05 mg/dL; Total Protein Urine Random < 7 mg/dL (<12)
[2024-12-13 19:34] LABS: Erythrocyte Sedimentation Rate 9 MM/HR (0-20)
[2024-12-14 04:00] LABS: HBS Num1 0.86 mIU/mL (0-7.99); HBc Num1 0.18 S/CO (0.00-0.79); HBsAGNum1 0.49 S/CO (0.00-0.99); Hepatitis B Core Antibody Nonreactive (Nonreactive); Hepatitis B Surface Antigen Negative (Negative); ~HepC Num1 0.07 S/CO (0.00-0.79); ~Hepatitis B Surface Antibody NONREACTIVE (Nonreactive); ~Hepatitis C Antibody Nonreactive (Nonreactive)
[2024-12-14 23:29] LABS: Complement C3 123 mg/dL (83-193)
[2024-12-15 21:43] LABS: Anti DNA DS Antibody 3 IU/mL; SM/Ribonucleoprotein Ab <1.0 NEG AI (<1.0 NEG); Smith Protein <1.0 NEG AI (<1.0 NEG)
[2024-12-20 11:58] LABS: ANA Pattern 2 Nuclear, Speckled; ANA Titer 2 1:40 titer; Anti Nuclear Antibody Screen POSITIVE (NEGATIVE)
== END 2024-12-13 09:52 | disposition home or self-care (01) ==
LOC: HO.HKASLDS 09:51
PROVIDERS: PCP Family Medicine; Visit Provider Internal Medicine Rheumatology
DX: M32.9 Systemic lupus erythematosus, unspecified (principal); M65.4 Radial styloid tenosynovitis [de Quervain]; Z79.899 Other long term (current) drug therapy
CPT/HCPCS: 36415; 81001; 82570; 84156; 84450; 84460; 85025; 85652; 86038; 86039; 86140; 86160; 86225; 86235; 86704; 86706; 86803; 87340

== ENCOUNTER 2024-12-13 09:51 | Outpatient (AMB) | payer OTHER, SELFPAY ==
--- NOTE | 2024-12-13 09:54 | MHC.OFFVIS ---
Vital Signs 12/13/24 09:56 Height 5 ft Weight 142 lb 2 oz BMI 27.8 BP 126/84 Blood Pressure Location Rt brachial Position Sitting Pulse 89 Pulse Source Pulse Oximeter Pulse Oximetry (%) 98 Oxygen Delivery Method Room Air Intake Visit Reasons: lupus Intake Note: patient presents follow up/ reestablish. patient states having some arthritis pain in lft thumb Allergies latex Allergy (Mild, Verified 12/13/24 09:58) Rash aspirin Allergy (Unknown, Verified 12/13/24 09:58) Rash Flu Vaccine Allergy (Unknown, Uncoded 12/08/24 10:34) Unknown HPI HPI lupus: Details: Left thumb pain started a few weeks ago. She has difficulty with utilizing her thumb and extending it. She has not self medicating. She works as a [employer]. Over the last couple of weeks she has been shoveling snow. Denies fevers, dyspnea, pleurisy, headaches, hair loss more than her usual, rash, urinary symptoms, joint swelling. She was treated for oral thrush for at least 3 months over the summer and going into the fall. It has resolved. [facility] Medical History (Updated 12/13/24 @ 12:31 by Cristopher Mi MD) Systemic lupus Encounter for long-term (current) use of other medications Bilateral bunions Arthralgia Family History (Updated 12/08/24 @ 10:39 by Colleen Serrano CMA) Father Cancer Mother Osteoporosis Physical Exam Vital Signs: Last Vital Signs Pulse 89 12/13/24 09:56 BP 126/84 12/13/24 09:56 Pulse Ox 98 12/13/24 09:56 Oxygen Delivery Method Room Air 12/13/24 09:56 BMI result Body Mass Index 27.8 Const Other: General: Comfortable CVS: RRR Respiratory: clear to auscultation bilaterally. Good respiratory effort Skin: No lesions seen MSK: Tender to palpate 1st extensor compartment left wrist. Positive Petra test. She has tenderness along left thenar muscles. No soft tissue swelling noted. No synovitis of any joints. Good range of motion of upper extremities and lower extremities. Assessment & Plan Assessment & Plan (1) Systemic lupus: Comment: History of lupus nephritis since age 9 (diagnosed [facility]), presenting with discoid lupus, malar rash, ITP (treated with rituximab 4 doses weekly by Hematology 2008, March 2015 and 10/2022). She also has history of chronic leukopenia and low C4. Clinically quiescent at this time. Code(s): M32.9 - Systemic lupus erythematosus, unspecified Category: Medical Plan: I have ordered labs for disease and drug monitoring on high-risk medication Continue hydroxychloroquine 300 mg daily. Eye exam 11/07/2024 reviewed: OCT and visual field test normal. Return to clinic in 3 months. If she remains in clinical remission, I can extend her follow-ups to every 6 months with labs every 3 months. 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 Discussed diagnosis and management. Code(s): M65.4 - Radial styloid tenosynovitis [de Quervain] Category: Medical Plan: PT ordered. Patient prefers to have physical therapy locally. Thumb spica splint prescribed for patient. Requisition given to patient Apply topical diclofenac gel 1% to affected area up to 4 times a day Apply ice to affected area daily Return to clinic in 3 months. If symptoms do not improve, consider cortisone injection. Orders: Orders MIRANDA Reflex Titer and Pattern Today Z79.899 - Other buttermilk drier operator (current) drug therapy Anti DNA DS Antibody Today M32.9 - Systemic lupus erythematosus, unspecified, Z79.899 - Other skilled nursing (current) drug therapy Complement C4 Today M32.9 - Systemic lupus erythematosus, unspecified, Z79.899 - Other skilled nursing (current) drug therapy C Reactive Protein Today M32.9 - Systemic lupus erythematosus, unspecified, Z79.899 - Other skilled nursing (current) drug therapy Erythrocyte Sedimentation Rate Today M32.9 - Systemic lupus erythematosus, unspecified, Z79.899 - Other buttermilk drier operator (current) drug therapy Protein Creatinine Ratio, Ur Today M32.9 - Systemic lupus erythematosus, unspecified, Z79.899 - Other skilled nursing (current) drug therapy Alanine Aminotransferase Today M32.9 - Systemic lupus erythematosus, unspecified, Z79.899 - Other skilled nursing (current) drug therapy Aspartate Amino Transferase Today M32.9 - Systemic lupus erythematosus, unspecified, Z79.899 - Other skilled nursing (current) drug therapy Complete Blood Count Auto Diff Today M32.9 - Systemic lupus erythematosus, unspecified, Z79.899 - Other buttermilk drier operator (current) drug therapy PT Evaluation and Treatment Today M65.4 - Radial styloid tenosynovitis [de Quervain] Sm Sm/HABILITATION SPECIALIST Antibodies Today M32.9 - Systemic lupus erythematosus, unspecified, Z79.899 - Other buttermilk drier operator (current) drug therapy Complement C3 Today M32.9 - Systemic lupus erythematosus, unspecified, Z79.899 - Other buttermilk drier operator (current) drug therapy UA w Microscopic Today M32.9 - Systemic lupus erythematosus, unspecified, Z79.899 - Other skilled nursing (current) drug therapy Hepatitis B,C Profile Today M32.9 - Systemic lupus erythematosus, unspecified, Z79.899 - Other skilled nursing (current) drug therapy T Spot TB Today M32.9 - Systemic lupus erythematosus, unspecified, Z79.899 - Other skilled nursing (current) drug therapy Medications: New diclofenac sodium 1% apply to affected area every 4-6 hours PRN 2 grams topical QID 100 grams 5RF arm brace (Wrist Brace) As directed Thumb spica splint, short Dx: De quervain's tenosynovitis 1 ea 0RF Coding Level of Care Code Est Pt Level 4 (89231) Complex EM visit Add On G2211 Diagnoses Systemic lupus M32.9 Encounter for long-term (current) use of other medications Z79.899 De Quervain's tenosynovitis, left M65.4
[2024-12-13 09:56] VITALS: BP 126/84; PULSE 89; O2SAT 98; BMI 27.8
== END 2024-12-13 10:39 | disposition home or self-care (01) ==
PROVIDERS: PCP Family Medicine; Visit Provider Internal Medicine Rheumatology
DX: M32.9 Systemic lupus erythematosus, unspecified (principal); Z79.899 Other long term (current) drug therapy; M65.4 Radial styloid tenosynovitis [de Quervain]
CPT/HCPCS: 99214

== ENCOUNTER 2025-03-16 09:59 | Outpatient (REF) | payer OTHER, SELFPAY ==
--- OUTSIDE RECORDS SUMMARY | 2025-03-16 12:32 | XMS_ITS | Data Portability ---
Author Organization [facility], , [facility] Address [address] [place] [address] Care Team Providers Care Outside Plant Supervisor Name Role Phone PHILIP ELLIOTT OTHER Unavailable ELLY DC Primary Care Provider [phone] FAHAD BROOKE Dolphin Trainer Assessment Encounter Date Assessment Date Assessment LastModified by Organization Details LastModified Time 01/10/2025 01/10/2025 1 PT sessions since initial evaluation on 12.27.24 Since our prior session patient reports improvement in symptom control and function. Clinically associated pain with ROM and resisted motions are improving. We will assess if adjustment to self care and home exercise as above help patient in progression toward their goals. Follow up: 2 weeks denis Not available 01/10/2025 13:37:43 01/24/2025 01/24/2025 2 PT sessions since initial evaluation on 12.27.24 Since our prior session patient reports no change in symptom control and function. Clinically associated pain with ROM and resisted motions are not changing. We will assess if adjustment to self care and home exercise as above help patient in progression toward their goals. Follow up: 2 weeks denis Not available 01/24/2025 14:12:21 02/28/2025 02/28/2025 3 PT sessions since initial evaluation on 12.27.24 Since our prior session patient reports no change in symptom control and function. Clinically associated pain with ROM and resisted motions are not changing. We will assess if adjustment to self care and home exercise as above help patient in progression toward their goals. I have asked for a consultation with hand therapy. No further physical therapy for her wrist pain It is planned. denis Not available 02/28/2025 14:13:50 Plan of Treatment Reminders Order Date Submit Date Provider Last Modified By Organization Details Last Modified Time Details Appointments Follow Up, 2024 04:30P M Philip Payne, PT Not available Not available Not available New Panda t-30 2024 11:30A M Christina Rosado, OT Not available Not available Not available New Panda t-30 2024 10:00A M Philip Payne, PT Not available Not available Not available Mammog alvarez, Screen ing 2024 04:00P M [facility] Mammography Not available Not available Not available LAB Follow -Up 2024 08:30A M [facility] Not available Not available Not available Follow Up, 2024 10:00A M ZOYA Stinson Not available Not available Not available LAB Follow -Up 2025 09:00A M [facility] Not available Not available Not available Nicci ss Visit 2025 09:00A M ZOYA Stinson Not available Not available Not available Lab None record ed. Referral None record ed. Procedures None record ed. Surgeries None record ed. Imaging MAMMO, screen ing, tomosy nthesi s, bilate ral - 2nd Look Consul t/Diag Mammo/ US Breast /Guide d Asp/Br east Bx/Cli p Placem ent, as clinic katlyn díaz. 2024 025 [facility] (Imaging), [address], [place], [address], 03/06/2025 12:49:21 XR, hip + pelvis , unilat eral, 2 or [address] [facility] (Imaging), [address], [place], [address], 01/17/2025 10:44:43 Medication Orders ketoco nazole 2 % shampo o 2024 025 [facility] #[id number], [address] [place], [address], 01/05/2025 10:18:43 Patient TargetsNo targets recorded. Patient Instructions Encounter Date Encounter Id Patient Instructions Last Modified By Organization Details Last Modified Time 01/05/2025 [id number] well visit, wome n 50 to 65: care instructions isoulos Not available 01/05/2025 10:18:41 Reason for Referral None Reported. Results Created Date Observation Date Name Description Value Unit Range Abnormal Flag Note LastModifiedBy Organization Detail LastModifiedTime 12/29/1912/29/2024 CBC WBC 3.78 K/? ? ?L 3.98-1 0.04 low Not Available [address], [address], 12/29/2024 10:29:01 12/29/1912/29/2024 CBC RBC 3.92 M/? ? ?L 3.93-5 .22 low Not Available [address], [address], 12/29/2024 10:29:01 12/29/1912/29/2024 CBC HGB 11.9 g/dL 11.2-1 5.7 Not Available [address], [address], 12/29/2024 10:29:01 12/29/1912/29/2024 CBC HCT 36.1 % 34.1-4 4.9 Not Available [address], [address], 12/29/2024 10:29:01 12/29/1912/29/2024 CBC MCV 92.1 fL 79.4-9 4.8 Not Available [address], [address], 12/29/2024 10:29:01 12/29/1912/29/2024 CBC MCH 30.4 pg 25.6-3 2.2 Not Available [address], [address], 12/29/2024 10:29:01 12/29/1912/29/2024 CBC MCHC 33.0 g/dL 32.2-3 5.5 Not Available [address], [address], 12/29/2024 10:29:01 12/29/19 25 12/29/2024 CBC plt 308 K/? ? ?L 182-36 9 Not Available [address], [address], 12/29/2024 10:29:01 12/29/19 25 12/29/2024 CBC MPV 10.6 fL 9.4-12 .3 Not Available [address], [address], 12/29/2024 10:29:01 12/29/1912/29/2024 CBC neut% 45.0 % 34.0-7 1.1 Not Available [address], [address], 12/29/2024 10:29:01 12/29/19 25 12/29/2024 CBC neut# 1.70 1.56-6 .13 Not Available [address], [address], 12/29/2024 10:29:01 12/29/1912/29/2024 CBC lymph % 36.5 % 19.3-5 1.7 Not Available [address], [address], 12/29/2024 10:29:01 12/29/1912/29/2024 CBC lymph # 1.38 K/? ? ?L 1.18-3 .74 Not Available [address], [address], 12/29/2024 10:29:01 12/29/19 25 12/29/2024 CBC mono% 13.2 % 4.7-12 .5 high Not Available [address], [address], 12/29/2024 10:29:01 12/29/19 25 12/29/2024 CBC mono# 0.50 0.24-0 .56 Not Available [address], [address], 12/29/2024 10:29:01 12/29/19 25 12/29/2024 CBC eo% 4.2 % 0.7-5. 8 Not Available [address], [address], 12/29/2024 10:29:01 12/29/19 25 12/29/2024 CBC eo# 0.16 0.04-0 .36 Not Available [address], [address], 12/29/2024 10:29:01 12/29/19 25 12/29/2024 CBC baso% 0.8 % 0.1-1. 2 Not Available [address], [address], 12/29/2024 10:29:01 12/29/19 25 12/29/2024 CBC baso# 0.03 0.00-0 .08 Not Available [address], [address], 12/29/2024 10:29:01 12/29/19 25 12/29/2024 CBC RDW-CV 12.2 % 11.7-1 4.4 Not Available [address], [address], 12/29/2024 10:29:01 12/29/19 25 12/29/2024 CBC Ig% 0.300 % 0.000- 1.500 Ig % >0.5 Indic ates possi ble Left Shift Not Available [address], [address], 12/29/2024 10:29:01 12/29/19 25 12/29/2024 CBC Ig# 0.010 0.000- 0.093 Not Available [address], [address], 12/29/2024 10:29:01 12/29/19 25 12/29/2024 CBC NRBC% 0.0 % 0.0-0. 2 Not Available [address], [address], 12/29/2024 10:29:01 12/29/19 25 12/29/2024 CBC NRBC# 0.000 0.000- 0.012 Not Available [address], [address], 12/29/2024 10:29:01 12/29/19 25 12/30/2024 COMP. METAB OLIC PANEL glucose 85 mg/dL 70-100 Not Available [address], [address], 12/30/2024 12:04:19 12/29/19 25 12/30/2024 COMP. METAB OLIC PANEL BUN 14 mg/dL 7-18 Not Available [address], [address], 12/30/2024 12:04:19 12/29/19 25 12/30/2024 COMP. METAB OLIC PANEL creatinine 0.8 mg/dL 0.8-1. 3 Not Available [address], [address], 12/30/2024 12:04:19 12/29/19 25 12/30/2024 COMP. METAB OLIC PANEL B/C 17.5 ratio Not Available [address], [address], 12/30/2024 12:04:19 12/29/19 25 12/30/2024 COMP. METAB OLIC PANEL GFR >=60ML /MIN [...] be used in pregn luba. Not Available [address], [address], 12/30/2024 12:04:19 12/29/19 25 12/30/2024 COMP. METAB OLIC PANEL sodium 140 mmol/ L 136-14 5 Not Available [address], [address], 12/30/2024 12:04:19 12/29/19 25 12/30/2024 COMP. METAB OLIC PANEL potassium 3.8 mmol/ L 3.5-5. 1 Not Available [address], [address], 12/30/2024 12:04:19 12/29/19 25 12/30/2024 COMP. METAB OLIC PANEL chloride 104 mmol/ L 96-107 Not Available [address], [address], 12/30/2024 12:04:19 12/29/19 25 12/30/2024 COMP. METAB OLIC PANEL anion gap 7.1 5.0-15 .0 Not Available [address], [address], 12/30/2024 12:04:19 12/29/19 25 12/30/2024 COMP. METAB OLIC PANEL CO2 29 mmol/ L 21-32 Not Available [address], [address], 12/30/2024 12:04:19 12/29/19 25 12/30/2024 COMP. METAB OLIC PANEL calcium 9.1 mg/dL 8.5-10 .3 Not Available [address], [address], 12/30/2024 12:04:19 12/29/19 25 12/30/2024 COMP. METAB OLIC PANEL total protein 7.0 g/dL 6.4-8. 2 Not Available [address], [address], 12/30/2024 12:04:19 12/29/19 25 12/30/2024 COMP. METAB OLIC PANEL albumin 3.9 g/dL 3.4-5. 0 Not Available [address], [address], 12/30/2024 12:04:19 12/29/19 25 12/30/2024 COMP. METAB OLIC PANEL globulin 3.1 g/dL Not Available [address], [address], 12/30/2024 12:04:19 12/29/19 25 12/30/2024 COMP. METAB OLIC PANEL A/G 1.3 ratio 0.8-2. 0 Not Available [address], [address], 12/30/2024 12:04:19 12/29/19 25 12/30/2024 COMP. METAB OLIC PANEL total bilirubin 0.30 mg/dL 0.00-1 .00 Not Available [address], [address], 12/30/2024 12:04:19 12/29/19 25 12/30/2024 COMP. METAB OLIC PANEL AST 16 U/L 0-37 Not Available [address], [address], 12/30/2024 12:04:19 12/29/19 25 12/30/2024 COMP. METAB OLIC PANEL ALT 31 U/L 6-63 Not Available [address], [address], 12/30/2024 12:04:19 12/29/19 25 12/30/2024 COMP. METAB OLIC PANEL alk. phos. 83 U/L 50-136 Not Available [address], [address], 12/30/2024 12:04:19 01/18/20 25 01/17/2025 XR, hip + pelvi s, unila teral , 2 or 3 view CLINIC AL HISTOR Y: Left hip pain. TECHNI QUE: Two views of the left hip were obtain ed. An AP view of the pelvis is added. COMPAR ORALIA: None. FINDIN GS: There is no fractu re, sublux ation, or disloc ation. There is preser vation of the hip joint space. There is a small area of sclero sis in the left iliac crest likely repres enting a bone island . There are phlebo liths in the pelvis . SI joint is unrema rkable . IMPRES MADIE: No acute bone abnorm ality. Bird ruiz Physic goldy: Josh Sen [facility] (Imaging) [address] , [place], [address], 01/17/2025 16:52:48 Result Notes None recorded. Problems Name Problem SNOMED Code Status Onset Date Resolution Date Notes Provider Name and Address Organization Details Recorded Time Menorrha ashley 359363351 Completed 12/30/2023 ZOYA Stinson [address] [place] [address], [address], [facility] 4 07:53:50 Recurren t urinary tract infectio n 309737303 Active 2023 ZOYA Stinson [address] [place] [address], [address], [facility] 4 07:55:06 Neutrope richie disorder 536221331 Active Not Available [facility] 3 03:12:28 Recurren t major depressi ve episodes 056253048 Active Gema Wallace LPN [facility] 4 09:04:55 Cough 55766584 Completed 200709/21/2013 Not Available [facility] 3 02:01:08 Fever 790833003 Completed 200709/21/2013 Not Available [facility] 3 02:02:42 Premenst rual tension syndrome 43648870 Completed 12/30/2023 ZOYA Stinson [address] [place] [address], [address], [facility] 4 07:54:08 Pain of shoulder region 99891745 Completed 09/21/2013 Not Available [facility] 3 02:01:02 Increase d frequenc y of urinatio n 735723281 Completed 200709/21/2013 Not Available [facility] 3 02:02:51 Measurem ent finding outside referenc e range 352435179 Completed 200709/21/2013 Not Available [facility] 3 02:03:25 Allergic rhinitis 13949334 Active 2005 Elly Dc MD [address] [place] [address], [address], [facility] 4 09:48:38 Left lower quadrant pain 031800826 Completed 200409/21/2013 Not Available [facility] 3 02:03:29 Pain of hip region 84412475 Completed 09/21/2013 Not Available [facility] 3 02:01:32 Vitamin D deficien cy 06008984 Active Not Available [facility] 3 03:12:28 Joint pain in ankle and foot Completed 09/21/2013 Not Available [facility] 3 02:01:26 Disorder of skeletal system 06199021 Completed 09/21/2013 Not Available [facility] 3 02:01:39 Atopic dermatit is 46626674 Active 2004 Not Available [facility] 3 03:12:28 On examinat ion - a rash Completed 200309/21/2013 [facility] 3 02:00:49 Thromboc ytopenic disorder 728285950 Active 2007 Lyn izaguirre [facility] 6 15:55:33 Osteopor osis 34924999 Active 2006 Most recent BMD with osteope makayla. Repeat due 05/2028 ZOYA Stinson [address] [place], [address], [facility] 4 07:52:18 Systemic lupus erythema tosus 08008697 Active 2003 Lyn izaguirre [facility] 6 10:57:44 Female genital organ symptoms 917269509 Completed 200409/21/2013 Not Available [facility] 3 02:03:07 Osteocho ndropath y 31265741 Active Not Available [facility] 3 03:12:28 Acute maxillar y sinusiti s 27267350 Completed 200509/21/2013 Not Available [facility] 3 02:01:43 Pain of wrist region 25218996 Completed 09/21/2013 Not Available [facility] 3 02:02:23 Otogenic otalgia 62786162 Completed 200309/21/2013 Not Available [facility] 3 02:03:18 Malaise and fatigue 662952498 Completed 200709/21/2013 Not Available [facility] 3 02:00:18 Cyst of ovary 29389333 Completed 200712/30/2023 ZOYA Stinson [address] [place], [address], [facility] 4 07:52:35 Lupus erythema tosus 976812788 [facility] 5 08:06:02 Problem Notes None recorded. Procedures Surgical History Date Name Laterality Status Provider Name and Address Organization Details Recorded Time 02/29/20 25 42532: Therapeutic Exercise completed Philip Payne, PT [address] [place], [address], [facility] 02/28/2025 14:13:10 02/29/20 Treatment and Advice completed Philip Payne, PT [address] [place], [address], [facility] 02/28/2025 12:08:38 01/25/20 90242: Therapeutic Exercise completed Philip Payne, PT [address] [place], [address], [facility] 01/24/2025 14:08:28 01/25/20 Treatment and Advice completed Philip Payne, PT [address] [place], [address], [facility] 01/24/2025 14:09:16 01/11/20 95236: Therapeutic Exercise completed Philip Payne, PT [address] [place], [address], [facility] 01/10/2025 13:39:26 01/11/20 Treatment and Advice completed Philip Payne, PT [address] [place], [address], [facility] 01/10/2025 13:38:47 12/27/19 Physical Activity Counselling completed Philip Payne, PT [address] [place], [address], [facility] 12/27/2024 11:39:52 12/27/19 76930: PT Eval Low Complexity completed Philip Payne, PT [address] [place], [address], [facility] 12/27/2024 11:39:52 12/27/19 Treatment and Advice completed Philip Payne, PT [address] [place], [address], [facility] 12/27/2024 12:12:02 07/06/20 91442: Therapeutic Exercise completed Philip Payne, PT [address] [place], [address], [facility] 07/06/2019 12:38:34 06/30/20 19 21903: Therapeutic Exercise completed Philip Payne, PT [address] [place], [address], [facility] 06/30/2019 11:32:04 06/30/20 19 Treatment and Advice completed Philip Payne, PT [address] [place], [address], [facility] 06/30/2019 10:14:16 06/22/20 19 74849: Therapeutic Exercise completed Philip Payne, PT [address] [place], [address], [facility] 06/22/2019 14:04:32 06/22/20 19 91479: Manual Therapy completed Philip Payne, PT [address] [place], [address], [facility] 06/22/2019 14:06:43 06/16/20 19 Physical Activity Counselling completed Philip Payne, PT [address] [place], [address], [facility] 06/17/2019 06:57:26 06/16/20 19 28199: PT Eval Low Complexity completed Philip Payne, PT [address] [place], [address], [facility] 06/17/2019 06:57:26 01/25/20 19 62964: Therapeutic Exercise completed Philip Payne, PT [address] [place], [address], [facility] 01/24/2019 14:29:08 01/25/20 19 Treatment and Advice completed Philip Payne, PT [address] [place], [address], [facility] 01/24/2019 14:25:22 01/05/20 19 45223: Therapeutic Exercise completed Philip Payne, PT [address] [place], [address], [facility] 01/04/2019 09:12:51 01/05/20 19 Treatment and Advice completed Philip Payne, PT [address] [place], [address], [facility] 01/04/2019 09:32:13 12/14/19 19 82736: Therapeutic Exercise completed Philip Payne, PT [address] [place], [address], [facility] 12/14/2018 09:45:05 12/14/19 19 Treatment and Advice completed Philip Payne, PT [address] [place], [address], [facility] 12/14/2018 09:31:33 12/01/19 19 Physical Activity Counselling completed Philip Payne, PT [address] [place], [address], [facility] 12/01/2018 11:03:33 12/01/19 19 41432: PT Eval Low Complexity completed Philip Payne, PT [address] [place], [address], [facility] 12/01/2018 11:03:33 12/01/19 19 Treatment and Advice completed Philip Payne, PT [address] [place], [address], [facility] 12/01/2018 11:06:11 04/07/20 17 POC Urinalysis Testing completed Judy Erazo [facility] 04/07/2017 10:15:39 03/31/20 17 POC Urinalysis Testing completed Kaitlin Paulson [facility] 03/31/2017 16:33:48 10/21/20 16 66381: Therapeutic Exercise completed Philip Payne, PT [address] [place], [address], [facility] 10/22/2016 06:43:34 10/21/20 16 Treatment and Advice completed Philip Payne, PT [address] [place], [address], [facility] 10/21/2016 10:35:08 09/30/20 16 63147: Therapeutic Exercise completed Philip Payne, PT [address] [place], [address], [facility] 09/30/2016 10:41:11 09/30/20 16 Treatment and Advice completed Philip Payne, PT [address] [place], [address], [facility] 09/30/2016 10:39:47 09/17/20 16 31368: PT Evaluation completed Philip Payne, PT [address] [place], [address], [facility] 09/17/2016 10:02:58 09/17/20 16 Physical Activity Counselling completed Philip Payne, PT [address] [place], [address], [facility] 09/17/2016 10:03:08 09/17/20 16 Treatment and Advice completed Philip Payne, PT [address] [place], [address], [facility] 09/17/2016 10:39:26 06/03/20 16 43134: Therapeutic Exercise completed Philip Payne, PT [address] [place], [address], [facility] 06/03/2016 09:38:05 06/03/20 16 67538: Manual Therapy completed Philip Payne, PT [address] [place], [address], [facility] 06/03/2016 09:38:13 05/13/20 16 10181: Therapeutic Exercise completed Philip Payne, PT [address] [place], [address], [facility] 05/13/2016 09:13:17 04/24/20 16 04866: PT Evaluation completed Philip Payne, PT [address] [place], [address], [facility] 04/24/2016 09:39:32 04/23/20 12 Greater Trochanteric Bursa Steroid Injection completed Elly Dc MD [address] [place], [address], [facility] 04/23/2012 08:27:31 05/30/20 10 Treatment and Advice completed Kitty Verma [address] [facility], [place], [address], [facility] 05/30/2010 18:26:06 Imaging Results Imaging Date Name Status LastModified by Organiz ation Details LastModified Time 01/17/2025 XR, hip + pelvis, unilateral , [address] [facility] (Imaging) [address], [place], [address], 01/17/2025 16:52:48 Procedure Notes None recorded. Medical Equipment None Reported. Allergies Allergen ID Allergen Name Allergen Category Reaction Reaction Severity Criticality Documentation Date Start Date Code Code System Note Provider Name and Address Organization Details Recorded Time 1393 aspirin medicatio n rash Not available Not available 12/12/2008 1191 RxNorm ??? Not Available [facility] 06:05:20 Medications Name Sig Start Date Stop Date Status Note LastModified by Organization Details LastModified Time gabapenti n 100 mg caps 07/27 completed [...] MOUTH 5 TIMES DAILY FOR 14 DAYS 01/05 completed Not Available Not Available Not Available bupropion HCl SR 150 mg tablet,12 hr sustained -release TAKE 1 TABLET BY MOUTH EVERY DAY DIRECTED 04/17 completed Not Available Not Available Not Available nystatin 100,000 unit/mL oral suspensio n TAKE 5ML BY MOUTH 4 TIMES A DAY FOR 7 DAYS 12/11 completed Not Available Not Available Not Available ketoconaz ole 2 % shampoo APPLY TOPICALL Y TO THE AFFECTED AREA(S), LATHER, LEAVE FOR 5 MINUTES & THEN RINSE OFF ONCE DAILY active Not Available Not Available No t Available Drisdol 1,250 mcg (50,000 unit) capsule [...] completed Not Available Not Available Not Available ciclopiro x 8 % topical solution APPLY TO THE AFFECTED AREA(S) TOPICALL Y ONCE DAILY PREFERAB LY AT BEDTIME OR 8 HOURS BEFORE WASHING active Not Available Not Available No t Available meloxicam 7.5 mg tablet Take 1 [...] Not Available gabapenti n 100 mg capsule PLEASE SEE ATTACHED FOR DETAILED DIRECTIO NS active Not Available Not Available No t [...] BY MOUTH EVERY DAY FOR 14 DAYS 01/05 completed Not Available Not Available Not Available naproxen 500 mg tablet TAKE 1 [...] Not Available Not Yudith ilable Not Available Vitamin D3 1000 units a day active Not Available Not Available No t Available multivita min active qd Not Available [...] 1 capsule every day by oral route. 01/05 completed Not Available Not Available Not Available nitrofura ntoin 100 mg tablet Take 1 tablet every day by oral route as needed. 04/17 completed prescrib ed by [facility] Not Available Not Available Not Available Claritin- [...] mass index (BMI) Body weight Heart rate Systolic blood pressure Diastolic blood pressure Provider Name and Address Organization Details Last Updated DateTime 5 152.4 cm 27.1 kg/m2 94212.3 4 g 80 /min 124 mm[Hg] 80 mm[Hg] Luisa Conroy MA [facility] 5 09:16:15 Social History Question Answer Notes LastModified by Organizat ion Details LastModified Time Tobacco Smoking Status Never Smoker [place] [facility] 12/19/2022 09:11:24 Do You Wear A Helmet When Biking? Yes Information not available 12/12/2021 What Is Your Level Of Caffeine Consumption? Occasional Information not available 12/11/2020 How Much Tobacco Do You Chew? None [email or web address] Information not available 09/18/2011 What Type Of Diet Are You Following? VEGETARIAN Gluten Free Fish, Chicken Pork. [email or web address] Information not available 12/19/2022 Which Illicit Or Recreational Drugs Have You Used? None [email or web address] Information not available 09/07/2012 Education Post Graduate [email or web address] Information not available 12/01/2022 What Is The Highest Grade Or Level Of School You Have Completed Or The Highest Degree You Have Received? [id number] Information not available 12/12/2021 Have There Been Any Changes To Your [...] Date Of Your Most Recent Tobacco Screening? 01/05/2025 Information not available 01/05/2025 How Many Children Do You Have? 0 [...] To Smoke? No Information not available 12/12/2021 How Much Tobacco Do You Smoke? No [email or web address] Information not available 09/18/2011 General Stress Level Medium [email or web address] Information not available 12/01/2022 Do You Use Sunscreen Routinely? Yes [email or web address] Information not available 09/18/2011 Sex: Female Functional Status Question Answer Note LastModified by Organizat ion Details LastModified Time Do you use any illicit or recreational drugs? No Information not available 12/12/2021 Do you or have you ever used any other forms of tobacco or nicotine? No [email or web address] Information not available 12/01/2022 What is your level of alcohol consumption? Occasional 0-1 drink a week Information not available 12/11/2020 Do you or have you ever used smokeless tobacco? Never used smokeless tobacco Information not available 12/01/2019 Are you currently employed? Yes Information not available 12/12/2021 What is your occupation? [employer] Information not available 09/29/2017 Do you or have you ever used e-cigarettes or vape? Never used electronic cigarettes [email or web address] Information not available 03/25/2020 What is your exercise level? Moderate Information [...] Partner Vas ectomy Date of LMP 07/01/2021 Approximate Obstetrics History GPAL:G 0 P 0 0 0 0 Immunizations Vaccine Type Date Status Note Provider Nam e and Address Organization Details Recorded Time Tdap 3 completed Not Available [facility] 11/19/2019 02:32:25 Influenza, split virus, trivalent, preservative 0 completed Not Available [facility] 11/19/2019 02:33:03 Influenza, split virus, quadrivalent, PF 7 completed Not Available [facility] 11/19/2019 02:22:08 COVID-19, mRNA, LNP-S, PF, 30 mcg/0.3 mL dose 1 completed Carmita [facility]os [facility] 02/04/2021 07:38:08 COVID-19, mRNA, LNP-S, PF, 30 mcg/0.3 mL dose 1 completed [place] [facility] 07/08/2024 08:27:06 Tdap 3 completed ZOYA Stinson [address] [place] [address], [address], [facility] 01/01/2023 14:36:47 COVID-19, mRNA, LNP-S, PF, 30 mcg/0.3 mL dose 1 completed [place] [facility] 07/08/2024 08:27:06 COVID-19, mRNA, LNP-S, PF, 30 mcg/0.3 mL dose 2 completed [place] [facility] 07/08/2024 08:27:06 COVID-19, mRNA, LNP-S, PF, 30 mcg/0.3 mL dose 2 completed Kallie Hinton [facility] 08/26/2022 15:48:26 COVID-19, mRNA, LNP-S, bivalent, PF, 10 mcg/0.2 mL 3 completed Pascale Cade LPN null, [facility] 03/16/2023 10:44:24 zoster recombinant 3 completed Luisa Conroy [facility] 07/08/2024 08:27:06 zoster recombinant 3 completed Luisa Conroy [facility] 07/08/2024 08:27:06 COVID-19 mRNA, bivalent, original/Omicron BA.1, Non-US Vaccine (Spikevax Bivalent), Moderna 3 completed Anette Alfaro LPN [facility] 04/17/2023 08:33:05 zoster recombinant 3 completed [place] [facility] 07/08/2024 08:27:06 COVID-19, mRNA, LNP-S, PF, 30 mcg/0.3 mL dose, cici-sucrose 2 completed [place] [facility] 07/08/2024 08:27:06 COVID-19, mRNA, LNP-S, bivalent, PF, 50 mcg/0.5 mL or 25mcg/0.25 mL dose 3 completed [place] [facility] 07/08/2024 08:27:06 COVID-19, mRNA, LNP-S, bivalent, PF, 30 mcg/0.3 mL dose 2 completed [place] [facility] 07/08/2024 08:27:06 COVID-19, mRNA, LNP-S,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 is doing well, labs reviewed, not all labs are back yet. Continue plaquenil and prednisone . Sunscreen as needed. Low back pain 066971978 M54.5 I counselled the patient on the side effects of naproxen. If patient to be taking more naproxen per week, gabapentin is a better option. Chronic low back pain 27 6612445 M54.5 [id number] Elly Dc MD , [facility], OFFICE [address] [place] [address] 12/01/2019 10:52:15 12/01/2019 12:30:49 Adult health examination 430171382 Z00.00 see Risk Assessment and Lifestyle Change Counseling section above Counseling 463145079 Z71 .9 Depression screening 171 424127 Z13.89 depression screening tool administer ed, entered into emr, scored and discussed, time greater than 7.5 minutes Screening for malignant neoplasm of cervix 103981801 Z12.4 Thrombocyt openic disorder 587584071 D69.6 Dr Mason following. Recurrent major depressive episodes 347725620 F33.9 Struggling with life stressors and sleep issues and depression .Continue wellbutrin . Magnesium for sleep. Systemic l upus erythematosus 64653771 M32.8 Doing well with her current rheumatolo gist. Continue current medication s and follow up. Hearing loss 17190173 H9 1.91 Gradual hearing loss r ear. [id number] Elly Dc MD , [facility], OFFICE [address] [place] [address] 02/02/2020 15:37:11 02/03/2020 08:40:01 Cough 26655909 R05 Patient with 1 week of cough and now with some chest tightness and lump in throat. Discussed that patient could have GERD or Covid.Cons ider trial of Tums. Stop vitamin C.Call if not better or if worsening at all.On plaquenil for her lupus. Systemic l upus erythematosus 50008497 M32.8 Doing well with her current rheumatolo gist. On plaquenil but may not have next month. [id number] Alejandro Schmdit MD FP, [facility], [address] [place] [address] 03/25/2020 09:44:52 03/27/2020 14:42:01 Impacted cerumen 89615221 H61.22 crackling in left earplaced in colace , then tip, now unable to hear from that left earno hx of occlusive cerumentri ed syringe lavage, too strong mechanism of injury discussedr ec getting lavage bulb at [facility] with pinna traction, then [facility] for lavage thursday if needed [id number] Rubin Mason MD Rheumatol sara, [address], [place] [address] 05/14/2020 11:14:52 05/28/2020 07:29:38 Systemic lupus erythematosus 51425773 M32.9 Patient is doing ok, labs reviewed, [...] and prednisone . Sunscreen as needed. Lightheadedness 90322862 8 R42 I asked the patient to have a visit with her pcp, she needs her orthostati cs checked and she may need further evaluation . Depressive disorder 5642 9000 F32.9 Along with anxiety. Patient is having a stressful situation at home. Patient to discuss with pcp some antidepres jorge options besides wellbutrin . [id number] Elly Dc MD , [facility], OFFICE [address] [place] [address] 05/16/2020 08:34:38 05/16/2020 14:40:29 Thrombocytopenic disorder 217330497 D69.6 Of heightened concern d/t recent episodes of dizziness and increased bleeding risk. No evidence of bleeding today and normal H&H on 05/08/20. Will repeat CBC in 1 week. Reviewed indication s for sooner follow-up. Dizziness 665895396 R42 Postural dizziness vs. vestibular neuritis. Declines in-office visit for further evaluation . Will continue to monitor closely. Will ask a nursing friend to come take BP. Advised to focus on hydration and increasing sodium intake. May trial nasal saline rinses and anti-hista mine for allergies. [id number] Elly Dc MD , [facility], OFFICE [address] [place] [address] 06/08/2020 15:08:41 06/08/2020 16:31:48 Tachycardia 2972024 R00.0 Slightly tachycardi ac with normal rhythm. Could be attributed to increased stress and recent prednisone burst. Will trial low dose propanolol to see if it helps lower HR, BP, and acute stress. Check TSH, BMP, and CBC on 06/18/20. Advised on close follow-up w/ PCP. Medication monitoring 39 0527693 Z51.81 Needs annual eye exam while on hydroxychl oroquine. Elevated blood-pressure reading without diagnosis of hypertension 503944250 R03.0 Likely attributed to increased stress and recent prednisone burst. Will trial low dose propanolol to see if it helps lower HR, BP, and acute stress. [id number] Elly Dc MD , [facility], OFFICE [address] [place] [address] 12/11/2020 09:19:31 12/11/2020 12:42:06 Adult health examination 754151193 Z00.00 see Risk Assessment and Lifestyle Change Counseling section above Your personal health plan: Continue to work on stress management . Advanced care planning: We discussed getting a new health care proxy. You will think about this. Exercise:c ontinue activity. Vaccines: covid vaccine this year. Preventati ve screening: pap 2024 mammo at 48 Counseling 379290263 Z71 .9 including cardiovasc ular risk reduction counseling Depression screening 171 906354 Z13.89 depression screening tool administer ed, entered into emr, scored and discussed, time greater than 7.5 minutes Thrombocyt openic disorder 740440970 D69.6 Followed by hematology and Dr Mason. Recurrent major depressive episodes 545955483 F33.9 Patient with significan t life stressors and situationa l disturbanc es. Continue wellbutrin add lexapro. Follow up with portal message in [employer]. Systemic l upus erythematosus 00129662 M32.[address] Mason. Continue current meds. Hearing loss 94943374 H9 1.91 Gradual hearing loss r ear. refer for testing [id number] Rubin Mason MD Rheumatol sara, [facility] [address] [place] [address] 01/10/2021 07:39:53 01/10/2021 10:55:56 Idiopathic thrombocytopenic purpura 81600971 D69.3 s/p Rituxan infusions. Plts numbers improved. No bruising or bleeding. Following with hematology . Patient counselled to contact office if any new symptoms. Systemic l upus erythematosus 04905110 M32.9 Patient is doing well for now. Continue plaquenil and prednisone 2 mg. Patient to follow with ophthalmol sara. Naproxen as needed. Monitor labs (standing orders). COVID vaccine discussed. Lateral ep icondylitis of left humerus 7372941739 79448 M77.12 Ice and naproxen for 2 weeks. Refer to therapy. Consider injections if no improvemen t. [id number] Philip Payne , PT Physical Therapy, [facility] [address] [place] [address] 01/22/2021 14:04:51 01/22/2021 15:55:20 Lateral epicondylitis of left humerus 6210170328 24416 M77.12 45 year old {{female* male}} with [...] Include: Therapeuti c exercise and manual therapy [id number] Elly Dc MD FP, [facility], OFFICE [address] [facility] [place] [address] 01/24/2021 14:05:39 01/24/2021 14:47:12 Recurrent major depressive episodes 806149124 F33.9 Patient with significan t life stressors and situationa l disturbanc es. Continue wellbutrin and lexapro 10mg. Follow up with portal message in . Candidiasis of mouth 797 96288 B37.0 Patient feeling somewhat better but still with thrush. Change to itraconazo le due to drug interactio ns with diflucan. Follow up if not better Hypoglycemia 401695513 E 16.2 discussed no symptoms. [id number] Philip Payne , PT Physical Therapy, [facility] [address] [place] [address] 01/30/2021 16:13:01 01/31/2021 21:18:50 Lateral epicondylitis of left humerus 4991624592 71617 M77.12 45 year old {{female* male}} with [...] Include: Therapeuti c exercise and manual therapy [id number] Kelsey Vogel MD , [facility], OFFICE [address] [place] [address] 03/04/2021 14:52:14 03/05/2021 15:05:02 Candidiasis of skin 61183829 B37.2 axillary eruption, ddx includes tinea, advised topical cream rx as written below , no longer than 14 days update for failure to improve keep area dry as often as possible Pain in throat 661709639 R07.0 chronic thrush, throat culture and yeast culture sent today, PND visible pilar erythema, no exudates minimal tongue coating, Posterior rhinorrhea 758 60680 R09.82 trial claratin (not necessaril y claratin d) for visualized pnd update in 5 days if improving sore throat symptom. [id number] Marlyn Oviedo D.O. , [facility], OFFICE [address] [place] [address] 03/12/2021 14:13:46 03/13/2021 07:34:25 Syncope 534768480 R55 Reviewed case from Orth ostatics are negativeEK G WNLI am concerned about seizure like activity vs arrythmiaR ecommend labsDiscus sed possibly discontinu ing bupropion, Holter monitor, CT scan, evaluation with neurology. Declines all these measures at this point.Advi sed to caution with/avoid ing driving.Ag clare to follow up with PCP in one week to discuss further.ER precaution s given [id number] Elly Dc MD , [facility], OFFICE [address] [place] [address] 03/20/2021 15:27:55 03/20/2021 16:03:52 Elevated blood-pressure reading without diagnosis of hypertension 984529560 R03.0 please check bp at home. update with numbners. Syncope 192781443 R55 We will check echo,. Patient story consistent with vasovagal from lifting something heavy. No other concerning symptoms. Follow up with any recurrence . Candidiasis of mouth 797 99520 B37.0 Ongoing ? yeast culture neg vs other. Trial of chlorhexad ine and if not better consider oral surgery for biopsy. Candidiasis of skin 4907 4426 B37.2 treat topically Active or passive immunization 507265689 Z23 check for immunity [id number] Marlyn Oviedo D.O. , [facility], OFFICE [address] [place] [address] 04/23/2021 08:45:51 04/23/2021 09:09:25 Hemangioma of skin 83054844 D18.01 Seen with AG, RTO for removal due to location/i rritation [id number] Rubin Mason MD Rheumatol sara, [address] [address] 05/09/2021 09:54:01 05/09/2021 15:38:55 Systemic lupus erythematosus 96428478 M32.9 Patient is doing well for now. Continue plaquenil and prednisone 2 mg. Patient to follow with ophthalmol ogy. Naproxen as needed. Increased prednisone as needed for episodes of rash, do not do more that 3-4 days a months. Monitor labs (standing orders).Zoya malik got the COVID vaccine. Idiopathic thrombocytopenic purpura 00163841 D69.3 s/p Rituxan infusions. Plts numbers improved. No bruising or bleeding. Following with hematology . Patient counselled to contact office if any new symptoms. Pain in throat 185368467 R07.0 Chronic.Cu lture did not show yeast.Refe r to ENT [id number] Judy Mclean MD , [facility], OFFICE [address] [place] [address] 05/21/2021 09:04:00 05/21/2021 11:58:39 Neoplasm of uncertain behavior of skin 32955967 D48.5 R scapula, inflamed hemangioma , sent for path Hemangioma of skin 13607 006 D18.01 R scapula, benign [id number] Rubin Mason MD Rhe[facility]ol [facility], [address] [address] 11/11/2021 09:46:42 11/12/2021 06:20:40 Systemic lupus erythematosus 23241760 M32.9 Patient is doing well for now. [...] recommenda tions for now. Idiopathic thrombocytopenic purpura 34911044 D69.3 s/p Rituxan infusions. Plts numbers improved. No bruising or bleeding. Following with hematology . Patient counselled to contact office if any new symptoms. [id number] Elly Dc MD , [facility], OFFICE [address] [facility] [address] 12/12/2021 09:57:39 12/12/2021 10:46:22 Adult health examination 419431739 Z00.00 see Risk Assessment and Lifestyle Change Counseling section above Your personal health plan: Advanced care planning: We discussed your HCP. Vaccines: tetanus 2022 Preventati ve screening: pap 2024ool testing this year.mammo at 48 Counseling 897331888 Z71 .9 including cardiovasc ular risk reduction counseling Depression screening 171 007162 Z13.31 depression screening tool administer ed, entered into emr, scored and discussed, time greater than 7.5 minutes Screening for alcohol abuse 331268934 Z13.39 Lupus erythematosus 2008 33843 L93.0 Recurrent major depressive episodes 853747945 F33.9 Patient with significan t life stressors and situationa l disturbanc es. Continue wellbutrin and lexapro 10mg. Follow up with portal message in [employer]. Thrombocyt openic disorder 215514188 D69.6 Followed by hematology and Dr Mason. Vitamin D deficiency 347 11081 E55.9 continue 1000U daily. Screening mammography 24 287534 Z12.31 Screening for malignant neoplasm of colon 892437524 Z12.11 Amenorrhea 71732353 N91. 2 check labs with next labs. Lumbar radiculopathy 128 572891 M54.16 r hip pain with mild radiculopa thy. refer to PT. Nail changes 892542098 L 60.9 check vitamin D Pain of ri ght hip joint 4389831849 35546 M25.551 refer to PT [id number] Philip Payne , PT Physical Therapy, [facility] [address] [place] [address] 01/02/2022 16:52:37 01/06/2022 10:33:29 Pain of right hip joint 5256681796 49950 M25.551 46 year old {{female* male}} with [...] Include: Therapeuti c exercise and manual therapy [id number] Philip Payne , PT Physical Therapy, [address] [address] 01/16/2022 10:36:03 01/16/2022 15:57:12 Pain of right hip joint 8732957503 00692 M25.551 46 year old {{female* male}} with [...] Include: Therapeuti c exercise and manual therapy [id number] Philip Payne , PT Physical Therapy, [facility] [address] [place] [address] 01/30/2022 10:38:41 01/30/2022 12:31:04 Pain of right hip joint 5428101828 84738 M25.551 46 year old {{female* male}} with [...] Include: Therapeuti c exercise and manual therapy [id number] Rubin Mason MD Rheumatol [facility], [facility] [address] [place] [address] 05/22/2022 09:25:19 05/22/2022 12:37:55 Systemic lupus erythematosus 77116258 M32.9 Patient is doing well for now. [...] or sooner if needed. Idiopathic thrombocytopenic purpura 86560390 D69.3 s/p Rituxan infusions. Plts numbers improved. No bruising or bleeding. Following with hematology . Patient counselled to contact office if any new symptoms. [id number] Kallie Arriaga MD , [facility], [address] [place] [address] 08/26/2022 15:44:03 08/26/2022 16:57:15 Sebaceous cyst of skin 229465676 L72.3 firm and erythemato us, tenderno fluctuance tx as belowinstr warm compresses f/u if not improving w tx, consider I and D if fluctuant [id number] Kallie Arriaga MD , [facility], [address] [place] [address] 10/28/2022 10:15:28 10/28/2022 11:34:43 Dysuria 50031130 R30.0 Urinary tr act infectious disease 43865177 N39.0 [id number] Hilaria Serrano MD , [facility], [address] [place] [address] 12/01/2022 09:30:08 12/01/2022 14:03:53 Painful urging to urinate 13432727 R30.0 Patient instructed to push fluids, to follow up for persistent or worsening symptoms or fever or back pain. Urinary tr act infectious disease 99562685 N39.0 send urine cxstart bactrim for presumed UTIdiscuss ed preventati ve, pt will use macrobid daily prn after sexcall if concerns [id number] Elly Dc MD , [facility], OFFICE [address] [facility] [place] [address] 12/19/2022 09:04:28 12/19/2022 09:58:23 Adult health examination 456036800 Z00.00 Your personal health plan:Petr nue doing yogaContin ue following with rheumatolo gy and hematology Advanced care planning: proxy up to dateExerci se: yoga, walking, pottery, weightsVac cines: flu declined, Tdap duePrevent ative screening: pap NIL, HPV- 2019, due 2024; colonoscop y 2022, due 2032; mammo scheduled for 03/13, repeat bone density due Lupus erythematosus 2008 74751 L93.0 Stable on hydroxychl oroquine and prednisone 1mg QD. No retinopath y on exam 05/2022. Repeat in 05/2023. New rheumatolo gist is Dr Brooke. Neutropenic disorder 303 267903 D70.9 Stable at last CBC 03/2022. Following with Dr Nix, has appt in 1 month and is doing repeat labs then. Recurrent major depressive episodes 881334991 F33.9 Stable on wellbutrin . States mood is good. Only mild sleep disruption . Continue. Vitamin D deficiency 347 30458 E55.9 At goal with supplement ation. Continue. Family his tory of lybno-6-xzdrzqdlivf deficiency 234342784 Z83.49 Mother and aunt with this. Pt without resp sx. Recurrent urinary tract infection 528482985 N39.0 3 infections within last 6 months. Perimenopa usal, no vaginal dryness. Most recent culture negative despite sx. Pt has frequent hematuria. ? nephrolith iasis vs vaginal atrophy vs incomplete voiding. Pt usually makes appt the day that sx arise. Encouraged her to have pelivc exam next time to assess possiblity of fissure Osteopenia 110837987 M85 .80 Last BMD with t score -1.5 at femoral neck. Pt on watermelon harvesting supervisor prednisone therapy. Repeat due. [id number] Elly Dc MD FP, [facility], OFFICE [address] [facility] [place] [address] 01/01/2023 13:27:57 01/01/2023 15:18:13 Active or passive immunization 764651652 Z23 Candidal vulvovaginitis 61697405 B37.31 Partially treated yeast infection. Initiate fluconazol e 150mg tablet every 3 days for 1 week. Bacterial vaginosis/ vaginitis probe, NG/CT testing as well. Follow up if no improvemen t in vaginal symptoms. Screening for disorder 448702284 Z11.3 3 new partners in last 1.5yr. Requests repeat STI screen Menopausal syndrome 1237 79083 N95.9 Wondering where she is in menopause, wants hormones checked. [id number] Elly Dc MD , [facility], OFFICE [address] [place] [address] 02/13/2023 08:16:18 02/13/2023 09:07:44 Recurrent urinary tract infection 054689957 N39.0 Pt with recurrent postcoital UTI sx managed at home with 1 dose nitrofuran toin after sex PRN. She prefers not to be taking antibiotic s this frequently . Initiate trial hiprex x 2 months, then FU. If sx resolve, continue hiprex. If sx continue to happen after sex, start vaginal estradiol. Recurrent major depression [id number] F33.9 Depression stable on 150mg SR. Taper to 75mg x 1 week and monitor mood, then come off if feeling stable. FU with portal update. Postcoital bleeding 4888 0000 N93.0 No indication s of bleeding source on exam today. Recent STI screen neg, pt is now monogamous with partner. Continue to monitor, consider trial estradiol suppositor y if recurs [id number] Elly Dc MD , [facility], [address] [place] [address] 04/17/2023 08:26:05 04/17/2023 09:24:27 Recurrent urinary tract infection 786856402 N39.0 Pt with no further UTI since started hiprex. Swallowing the pills has been difficult due to size and dryness. Taking with milk/juice helps. Will try with applesauce . Continue hiprex and FU with further UTI sx. Recurrent major depression 47076926 F33.9 Stable off antidepres jorge. Coping well with stress and overwhelm. FU as needed. Postcoital bleeding 4888 0000 N93.0 No further bleeding x 2mo. Continue to monitor. Initiate trial vaginal estradiol if sx return. Vaccine ad verse reaction [id number] T50.Z95A Pt with adverse reaction to shingrix vs moderna covid shot. Unsure which. Due for next shingrix 2mo after first. Advise premed with benadryl and wait 30 mins in pharmacy in case of adverse reaction. [id number] Elly Dc MD , [facility], [address] [facility] [place] [place] [address] 06/02/2023 09:58:45 06/02/2023 10:30:05 Carpal tunnel syndrome of right wrist [id number] 80075 G56.01 Hx and exam consistent with carpal tunnel syndrome. Pt has a brace, encouraged her to use nightly as well as during periods of rest during the day. Refer to sports medicine for considerat ion of injection. Modify yoga, guitar playing, and other activities to reduce sx. FU if sx do not improve for hand surgeon referral. Right tars al tunnel syndrome [id number] 65122 G57.51 Mild, sx reproducib le with Durkan's of tarsal tunnel. Sx only occur with certain driving positions. Encouraged pt to adjust car seat to reduce stress on ankle. FU if sx do not improve. [id number] Elly Dc MD , [facility], [address] [facility] [place] [address] 06/19/2023 08:16:28 06/19/2023 08:53:18 Allergic rhinitis 09856466 J30.9 Better with rhinocort and claritin D daily. Encouraged to work on trying without D. Lupus erythematosus 2008 73978 L93.0 Transition ing to new rheumatolo gy. Off of prednisone . Having some morning stiffness. On hydroxychl oroquine. Neutropenic disorder 303 652529 D70.9 stable related to SLE. Vitamin D deficiency 347 37248 E55.9 continue 1000U daily. Menopausal syndrome 1237 65707 N95.9 Was having night sweats. Better now. Uses gabapentin at bedtime and all better. check lh and fsh next blood work. 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 Recurrent urinary tract infection 571208239 N39.0 better with hipprex. Carpal dimitrios venice syndrome of right wrist [id number] 62032 G56.01 R wrist with numbness and tingling. 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 If doesn't improve consider work up for neck nerve impingemen t. Systemic l upus erythematosus 28024246 M32.[address] Mason. Continue current meds. Major depr ession in remission 81094298 F32.5 Doing well off of meds. Stable overall. [id number] Michele Ruiz MD Sports Medicine, [facility] [address] [place] [address] 06/23/2023 15:31:35 06/25/2023 10:18:43 Carpal tunnel syndrome 75484720 G56.01 Brionna is a 48-year-ol d female [...] me in 6 weeks for reevaluati on. [id number] Michele Ruiz MD Sports Medicine, [facility] [address] [place] [address] 08/11/2023 10:08:52 08/13/2023 15:52:21 Carpal tunnel syndrome 99445301 G56.01 Brionna is a 48-year-ol d female [...] She will plan to schedule these at [facility] asked that she follow up with me in 6 weeks for reevaluati on. Ulnar nerv e entrapment at elbow 145246628 G56.21 [id number] MD CASSIDY Denise, [facility], [address] [place] [address] 10/02/2023 08:23:21 10/02/2023 10:54:45 Candidal intertrigo 240597455 B37.2 Pt with well circumscri bed erythemato us R axillary rash with shiny surface consistent with candidal intertrigo . Ketoconazo le previously only somewhat helpful. Rec nystop powder which she has at home. Avoid deodorant x 2 weeks and do nystop BID. If not improving, may consider course of oral fluconazol e. [id number] Michele Ruiz MD Sports Medicine, [facility] [address] [place] [address] 10/06/2023 09:33:12 10/08/2023 13:36:54 Carpal tunnel syndrome 44255102 G56.01 Brionna is a 48-year-ol d female [...] injection at any time in the future. [id number] MD CASSIDY TOLEDO, [facility], [address] [place] [address] 11/10/2023 09:57:57 11/10/2023 11:14:14 Onychomycosis of toenails 370528292 B35.1 L great toenail and R 3rd toenail without PNF involvemen tuse oTc pharmaceut ical grade tea tree oil, one drop twice daily x 3 weeksaware nail may fall offtrim and cover with band ain prnThursda y [place] with small brush applicator https://[employer] .au/tea-tr ee-oil/ Might benefit from Use the 1:4 foot soaks white vinegar and water x 15 mins each day x 1-2 weeks. Dry thoroughly , allow feet to breathe throughout day if possible. Products we discussed: https://[employer]/Thursda y-Plantati on- goldy-Natura lly-Cleans es/dp/B00B QXQ7CU/ref =asc_df_B0 5KCTT6LV/? tag=hyprod -20&linkCo de=df0&hva gyw=307763 340863&hvp os=&hvnetw =g&hvrand= [id number]& hvpone=&hv ptwo=&hvqm t=&hvdev=c &hvdvcmdl= &hvlocint= &hvlocphy= 8483614&hv targid=angie -[id number] 6837&psc=1 &fgms=3558 [id number] Irritant c ontact dermatitis 256813251 L24.9 chronic R axillary rash, unresponsi ve to po and topical antifungal s, suspect contact derm. Defers biopsy today. Scratch/it ch cycle discussed; rash improves 80% in 2 weeks if scratching stopped. Use cold to decrease itch impulse. Avoid triggers.U se gentle soaps (Dr. Rosss [place]; avoid Ivory, Dial or [place]). Moisturize each day to improve skin barrier function. (oTc Cerave, Sarna, Vanicream) .ALL Free & Clear preferred laundry products, no dryer sheets, etc.Avoid prolonged bathing with hot water. Recommend cetirizine each AM, +/- benadryl as tolerated at PM. Use topical steroid (TCS) at night x 14 days.If no change, consider biopsy if off TCS x 1 week or referral to anode rebuilder for patch testing. Hold shavingPro ducts discussed: https://gilda hurt.GetMaid/http s://www.Bkam/produc ts/liquid- laundry-de tergent/al l-free-kassi ar-liquid- laundry-de tergent- e-original .html Multiple s kin tags on neck 898006595 L91.8 benign, assoc with friction.c an use LN2 for removal Long-term current use of immunosuppressive drug 971602364 Z79.60 [id number] Elly Dc MD , [facility], [address] [facility] [address] 12/31/2023 10:02:51 12/31/2023 10:58:47 Adult health examination 764428110 Z00.00 Your personal health plan:Petr nue doing yogaContin ue following with rheumatolo gy and hematology Advanced care planning: proxy up to dateExerci se: yoga, walking, pottery, weights, HIITVaccin es: flu due, tdap reven tative screening: pap NIL, HPV- 2019, due 2024; colonoscop y 2022, due 2032; mammo due 03/2024, repeat bone density due Depression screening 171 221029 Z13.31 depression screening tool administer ed Screening for alcohol abuse 426321505 Z13.39 Alcohol use screening tool administer ed Screening mammography 24 918233 Z12.31 Systemic l upus erythematosus 44888702 M32.9 Stable on hydroxychl oroquine. Continue following with Dr Brooke Neutropenic disorder 303 375541 D70.9 Stable at last CBC 05/2023. Following with Dr Nix. Thrombocyt openic disorder 242628233 D69.6 Stable on labs 05/2023. Follow with Dr Nix. Recurrent urinary tract infection 861562048 N39.0 Pt with no further UTI since started hiprex. Continue. Pain of ri ght hip joint 3371138898 71973 M25.551 Pt with right groin and lateral hip pain below iliac crest. Refer to PT and do hip x ray for bony abnormalit y given groin pain. Contact dermatitis 75883 004 L25.9 Pt with likely contact dermatitis of R axilla improving with unscented products. Itch minimal. Start triamcinol one BID x 1-2w and FU PRN Postmenopausal state 764 41780 Z78.0 Major depr ession in remission 34258375 F32.5 Stable off meds [id number] Elly Dc MD , [facility], [address] [place] [address] 06/24/2024 07:45:07 06/24/2024 09:48:27 Pain in throat 224971904 R07.0 Lupus erythematosus 2008 59405 L93.0 Patient on plaquenil. She is not getting consistent care from rheum at this time. Transition ing to [facility]. Candidiasis of mouth 797 50885 B37.0 3 weeks of sore throat and white tongue. Will treat with fluconazol e and if not better we will evaluate further. Thrombocyt openic disorder 674536473 D69.6 Followed by hematology and Dr Mason. [id number] Chirag Erazo MD , [facility], [address] [place] [address] 07/18/2024 10:30:30 07/18/2024 10:58:46 Candidiasis of mouth 37949824 B37.0 persistent /recurrent with poss esophagiti s as well. High dose itraconazo le. Follow up if not improving or new symptoms develop. [id number] NEWTON VOGEL DO , [facility], [address] [place] [address] 11/23/2024 16:15:11 11/25/2024 08:47:05 Burst blood vessel 633403959 R58 right thumb pain and discolorat ion [...] counts and lupus activity.- Follow up with rheumatolo gist on December 13. [id number] VIDYA JASON NP Physical Therapy, [facility] [address] [place] [address] 12/27/2024 11:31:35 12/27/2024 14:51:48 Tenosynovitis of left radial styloid 0333871675 7054315 M65.4 49 year old {{female* male}} with findings most consistent with {{acute* c hronic rec urrent}} Left radial styloid tenosynovi tis with mobility deficit and movement coordinati on Impairment . Patient has significan t functional limitation in their {{activiti es of daily living act ivities of daily living and work capacity* activities of daily living and exercise capacity a ctivities of daily living and recreation }}. Skilled physical therapy is needed to safely and progressiv kelli address impairment s and functional limitation s as outlined below. Patient Goals:To be able to [employer], and lift or pottery and yoga without limitation s due to left wrist and vein. Clinical Goals: 1. Demonstrat e symmetric pain free active, passive and resisted motions of the {{neck and upper extremitie s shoulder elbow, forearm and wrist trun k and lower extremitie s hip knee ankle Wri st and thumb#}}. 2. Demonstrat e sufficient muscular endurance to meet functional demands. Treatment Plan: Patient to return for {{4 6* 8 1 0}} visits over {{4 8 12*} } weeks. We expect significan t change in pain, impairment and function in this time frame. Treatment to Include as appropriat e: therapeuti c exercise (73612), manual therapy (94256), therapeuti c activity (20856), gait training (43976), neuromuscu lar reeducatio n (45126), mechanical traction (14047) [id number] ZOYA Stinson FP, [facility], [address] [facility] [place] [address] 01/05/2025 09:05:19 01/05/2025 10:06:21 Adult health examination 296461938 Z00.00 Your personal health plan:Petr naomi doing yogaContin ue following with rheumatolo gy and hematology Advanced care planning: proxy up to dateExerci se: yoga, walking, pottery, weights, HIITVaccin es: flu due and declines due to reaction; tdap 3Preven tative screening: pap NIL, HPV- 2019, due 2024; colonoscop y 2022, due 2032; mammo due 03/2025 Depression screening 171 294216 Z13.31 depression screening tool administer ed Screening for alcohol abuse 217759102 Z13.39 Alcohol use screening tool administer ed Screening mammography 24 317916 Z12.31 Systemic l upus erythematosus 84639885 M32.9 Stable on hydroxychl oroquine. Continue following with Dr Brooke. Neutropenic disorder 303 292787 D70.[address] Nix. Thrombocyt openic disorder 092338314 D69.6 Stable, plt now WNL. Follow with Dr Nix. Recurrent urinary tract infection 111787122 N39.0 Pt with no further UTI since started hiprex. Continue. Major depr ession in remission 46131227 F32.5 Overall stable, some seasonal slump which she feels will improve with Spring. Will FU if depression persists. Pain of le ft hip joint 8897487561 52450 M25.552 Bilat hip joint and hip flexor pain. R hip XR WNL. Order L hip XR. Advise trial of banded squats to strengthen glute medius. Seborrheic dermatitis of scalp 991068847 L21.0 Raised renetta orrheic keratosis 6615547171 08522 L82.1 L frontal region likely SK. Low concern for BCC. Continue to monitor and FU if lesion changes or if persistent worry for shave bx. [id number] VIDYA JASON NP Physical Therapy, [facility] [address] [place] [address] 01/10/2025 12:55:42 01/10/2025 14:37:38 Tenosynovitis of left radial styloid 6545210303 5056573 M65.4 49 year old {{female* male}} with findings most consistent with {{acute* c hronic rec urrent}} Left radial styloid tenosynovi tis with mobility deficit and movement coordinati on Impairment . Patient has significan t functional limitation in their {{activiti es of daily living act ivities of daily living and work capacity* activities of daily living and exercise capacity a ctivities of daily living and recreation }}. Skilled physical therapy is needed to safely and progressiv kelli address impairment s and functional limitation s as outlined below. Patient Goals:To be able to [employer], and lift or pottery and yoga without limitation s due to left wrist and vein. Clinical Goals: 1. Demonstrat e symmetric pain free active, passive and resisted motions of the {{neck and upper extremitie s shoulder elbow, forearm and wrist trun k and lower extremitie s hip knee ankle Wri st and thumb#}}. 2. Demonstrat e sufficient muscular endurance to meet functional demands. Treatment Plan: Patient to return for {{4 6* 8 1 0}} visits over {{4 8 12*} } weeks. We expect significan t change in pain, impairment and function in this time frame. Treatment to Include as appropriat e: therapeuti c exercise (16944), manual therapy (11864), therapeuti c activity (61069), gait training (60103), neuromuscu lar reeducatio n (56571), mechanical traction (79665) [id number] VIDYA JASON NP Physical Therapy, [address] [address] 01/24/2025 10:27:01 01/24/2025 15:04:34 Tenosynovitis of left radial styloid 7321784630 7677244 M65.4 49 year old {{female* male}} with findings most consistent with {{acute* c hronic rec urrent}} Left radial styloid tenosynovi tis with mobility deficit and movement coordinati on Impairment . Patient has significan t functional limitation in their {{activiti es of daily living act ivities of daily living and work capacity* activities of daily living and exercise capacity a ctivities of daily living and recreation }}. Skilled physical therapy is needed to safely and progressiv kelli address impairment s and functional limitation s as outlined below. Patient Goals:To be able to [employer], and lift or pottery and yoga without limitation s due to left wrist and vein. Clinical Goals: 1. Demonstrat e symmetric pain free active, passive and resisted motions of the {{neck and upper extremitie s shoulder elbow, forearm and wrist trun k and lower extremitie s hip knee ankle Wri st and thumb#}}. 2. Demonstrat e sufficient muscular endurance to meet functional demands. Treatment Plan: Patient to return for {{4 6* 8 1 0}} visits over {{4 8 12*} } weeks. We expect significan t change in pain, impairment and function in this time frame. Treatment to Include as appropriat e: therapeuti c exercise (53089), manual therapy (65178), therapeuti c activity (62753), gait training (85350), neuromuscu lar reeducatio n (02733), mechanical traction (05201) [id number] VIDYA JASON NP Physical Therapy, [address] [address] 02/28/2025 11:32:41 02/28/2025 14:38:26 Tenosynovitis of left radial styloid 3294141895 6452323 M65.4 Patient Goals:To be able to [employer], and lift or pottery and yoga without limitation s due to left wrist and vein.These goals have not been met Clinical Goals:1. Demonstrat e symmetric pain free active, passive and resisted motions of the {{neck and upper extremitie s shoulder elbow, forearm and wrist trun k and lower extremitie s hip knee ankle Wri st and thumb#}}. 2. Demonstrat e sufficient muscular endurance to meet functional demands.Th cherry goals have not been met Health Concerns Section Related Observation LastModified by Organization Detai ls LastModified Time None Recorded Concern Status LastModified by Organization Details LastModified Time None Recorded Advance Directives Directive None Recorded Payers Encounter Date Sequence Insurance Name Policy Number Policy Umaña Covered Member ID Umaña Member ID Guarantor Name 12/27/2024 1 [facility] [id number] Brionna Champion [id number] Brionna Champion 01/05/2025 1 [facility]) [id number] Brionna Champion [id number] Brionna Champion 01/10/2025 1 [facility] [id number] Brionna Champion [id number] Brionna Champion 01/24/2025 1 [facility] [id number] Brionna Champion [id number] Brionna Champion 02/28/2025 1 [facility] [id number] Brionna Champion [id number] Brionna Champion Notes Date Note Type Note Provider Name and Address Organization Details Recorded Time 12/27/2024 text/html Intake ReviewedReported bypatient.Patient intake form reviewedwith patient including functional limitations. Document is scanned into chartPT Initial Eval*Reported bypatient.History:Drea yap complaint: (Left lateral wrist and thumb pain); In early December patient noted an acute onset of left lateral wrist and thumb pain and swelling in this area. She had a regular follow-up with her baseball winder 5 days later and she was diagnosed with de Quervain's tenosynovitis and referred to physical therapy. Symptom intensity:average 01/09 Symptom duration:Variable Symptom change:symptoms are getting better Symptom quality:sharp Aggravating Factors:Gripping, lifting, pottery, yoga Sleep Status:no difficulty sleeping due to pain Prior History:no similar problems in the past; no recent hospitalization; not currently taking a blood thinner; no allergy to latex; no falls in the past year Prior Studies:none Activities/Hobbies/Exe rcise:He is limiting some of her yoga poses Associated Symptoms:no nausea; no vomiting; no fever; no chills; no excessive fatigue; no confusion; no forgetfulness; no dizziness; no lightheadedness; no change in weight; no numbness; no tingling; no changes in urinary habits; no changes in bowel habits; no loss of pleasure or interest in activities; no feeling down or depressed Philip Payne, PT [address] [facility], [place], [address], [facility] 12/27/2024 14:21:30 01/05/2025 text/html Risk Assessment AdultReported bypatient.Coronary Artery Disease Risk Assesment:No Family history of coronary artery disease; No personal history of diabetes; No history of peripheral vascular disease, AAA, or carotid disease; No personal history of coronary artery disease Breast Cancer Risk Assessment:No family history of breast cancer; No history of breast cancer or dcis Colon Cancer Risk:No personal history of colon cancer or polyps; No family history of colon polyps or cancer Lung Cancer Risk Assessment:Never smoked Fracture Risk Assessment:No unexplained fracture; Patient has higher than average risk for osteoporotic bone fractures Cognitive/Behavioral Risk Assessment:+hx depression Safety Risk Assessment:No evidence of abuse/neglect Diet:Discussed the value of a Mediterranean diet, and eating more fruits and vegetables Exercise counseling:Discussed the importance of daily physical activity Counselling:Counseled about protecting skin from the sun and lowering the risk of skin cancerRisk Assessment and Lifestyle Change Counseling 50-64Reported bypatient.Coronary [...] and lowering the risk of skin cancer 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 Has started cooking for herself again.Mostly vegetarian.She has been weepy lately.No UTIs. Still with boyfriend.She had a hand injury from shoveling. Is now in PT for this. She is sleeping with a brace.She has a lot of bilat hip pain after sitting x 20 minutes. L>R. Similar to prior pain that she worked on in PT.Her scalp is very itchy. No dandruff. Using frag free shampoo. ZOYA Stinson [address] [place] [address], [phone], [facility] 01/05/2025 10:19:13 01/10/2025 text/html PT Initial Eval*Reported bypatient.History:Drea f complaint: (Left lateral wrist and thumb pain); In early December patient noted an acute onset of left lateral wrist and thumb pain and swelling in this area. She had a regular follow-up with her baseball winder 5 days later and she was diagnosed with de Quervain's tenosynovitis and referred to physical therapy. Symptom intensity:average 01/09 Symptom duration:Variable Symptom change:symptoms are getting better Symptom quality:sharp Aggravating Factors:Gripping, lifting, pottery, yoga Sleep Status:no difficulty sleeping due to pain Prior History:no similar problems in the past; no recent hospitalization; not currently taking a blood thinner; no allergy to latex; no falls in the past year Prior Studies:none Activities/Hobbies/Exe rcise:He is limiting some of her yoga poses Associated Symptoms:no nausea; no vomiting; no fever; no chills; no excessive fatigue; no confusion; no forgetfulness; no dizziness; no lightheadedness; no change in weight; no numbness; no tingling; no changes in urinary habits; no changes in bowel habits; no loss of pleasure or interest in activities; no feeling down or depressedDaily progress note*Reported bypatient.How are you feeling?improving; 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 And when I wake up in the morning the thumb is just a stiffness the day before Philip Payne, PT [address] [place] [address], [phone], [facility] 01/10/2025 13:39:37 01/24/2025 text/html PT Initial Eval*Reported bypatient.History:Drea f complaint: (Left lateral wrist and thumb pain); In early December patient noted an acute onset of left lateral wrist and thumb pain and swelling in this area. She had a regular follow-up with her baseball winder 5 days later and she was diagnosed with de Quervain's tenosynovitis and referred to physical therapy. Symptom intensity:average 01/09 Symptom duration:Variable Symptom change:symptoms are getting better Symptom quality:sharp Aggravating Factors:Gripping, lifting, pottery, yoga Sleep Status:no difficulty sleeping due to pain Prior History:no similar problems in the past; no recent hospitalization; not currently taking a blood thinner; no allergy to latex; no falls in the past year Prior Studies:none Activities/Hobbies/Exe rcise:He is limiting some of her yoga poses Associated Symptoms:no nausea; no vomiting; no fever; no chills; no excessive fatigue; no confusion; no forgetfulness; no dizziness; no lightheadedness; no change in weight; no numbness; no tingling; no changes in urinary habits; no changes in bowel habits; no loss of pleasure or interest in activities; no feeling down or depressedDaily progress note*Reported bypatient.How are you feeling?same; Thumb is stiff in the morning when I come out of the brace. I spoke with Oliva about my hips and I was hoping you could take a look at them today. Have had hip pain for a few years. Mostly in the front of the hips aggravated with prolonged sitting. Philip Payne, PT [address] [place], [id number], [facility] 01/24/2025 14:12:30 02/28/2025 text/html PT Initial Eval*Reported bypatient.History:Dera yap complaint: (Left lateral wrist and thumb pain); In early December patient noted an acute onset of left lateral wrist and thumb pain and swelling in this area. She had a regular follow-up with her baseball winder 5 days later and she was diagnosed with de Quervain's tenosynovitis and referred to physical therapy. Symptom intensity:average 3/10 Symptom duration:Variable Symptom change:symptoms are getting better Symptom quality:sharp Aggravating Factors:Gripping, lifting, pottery, yoga Sleep Status:no difficulty sleeping due to pain Prior History:no similar problems in the past; no recent hospitalization; not currently taking a blood thinner; no allergy to latex; no falls in the past year Prior Studies:none Activities/Hobbies/Exe rcise:He is limiting some of her yoga poses Associated Symptoms:no nausea; no vomiting; no fever; no chills; no excessive fatigue; no confusion; no forgetfulness; no dizziness; no lightheadedness; no change in weight; no numbness; no tingling; no changes in urinary habits; no changes in bowel habits; no loss of pleasure or interest in activities; no feeling down or depressedDaily progress note*Reported bypatient.How are you feeling?improving (Hips are less stiff and painful); same; I have been very busy at work. I hand really has not changed much. If I reached for something that requires me to open the hand fully I get a shooting pain. 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 I want to review some of the exercises. Change in Symptoms:location: (Left radial wrist, bilateral hip) Home program:Performing irregularly; I have not been very consistent with the hand exercises I have been stretching. Hip exercises were a little easier for me to get to and they seem to be helpful. I would like to get an exercise from the inner thighs because that is an area that feels weak Philip Payne, PT [address] [facility], [place], [phone], [facility] 02/28/2025 14:14:30 OBGyn Episode No OBEpisode recorded.
[2025-03-16 17:44] LABS: Appearance Urine Clear; Color Urine Yellow; Glucose Urine UA Negative (Negative); Leukocyte Esterase Urine Negative (Negative); Nitrite Urine Negative (Negative); Urine Blood Negative (Negative); Urine Ketones Negative (Negative); Urine Protein Negative (Neg-Trace)
[2025-03-16 18:00] LABS: Alanine Aminotransferase 30 U/L (0-31); Aspartate Amino Transferase 29 U/L (5-31); C Reactive Protein 0.23 mg/dL (< or = 0.50); Estimated Glomerular Filt Rate > 60
[2025-03-16 18:01] LABS: Bacteria Urine None Seen (None Seen); Hyaline Casts Urine 0-2 /LPF (0-2); RBC Urine 0-2 /HPF (0-2); Squamous Epithelial Cell Urine 0-2 /HPF (0-2); WBC Urine 0-5 /HPF (0-5)
[2025-03-16 18:16] LABS: Creatinine Urine 38.53 mg/dL; Total Protein Urine Random < 7 mg/dL (<12)
[2025-03-16 18:51] LABS: Erythrocyte Sedimentation Rate 12 MM/HR (0-20)
[2025-03-17 19:43] LABS: Anti DNA DS Antibody 3 IU/mL
[2025-03-20 04:39] LABS: TS Negative Control Passed; TS Panel A 0; TS Panel B 0; TS Positive Control Passed; TSpotTB Negative (Negative)
[2025-03-20 10:49] LABS: Complement C3 129 mg/dL (83-193)
== END 2025-03-16 10:00 | disposition home or self-care (01) ==
LOC: HO.HKASLDS 09:59
PROVIDERS: PCP Family Medicine; Visit Provider Internal Medicine Rheumatology
DX: M32.9 Systemic lupus erythematosus, unspecified (principal); M65.4 Radial styloid tenosynovitis [de Quervain]; Z79.899 Other long term (current) drug therapy
CPT/HCPCS: 36415; 81001; 82565; 82570; 84156; 84450; 84460; 85652; 86140; 86160; 86225; 86481

== ENCOUNTER 2025-03-16 09:59 | Outpatient (AMB) | payer OTHER, SELFPAY ==
--- NOTE | 2025-03-16 10:01 | MHC.OFFVIS ---
Vital Signs 03/16/25 10:06 Height 5 ft Weight 139 lb 12.369 oz BMI 27.3 BP 120/82 Blood Pressure Location Lt brachial Position Sitting Respiration 16 Pulse 83 Pulse Source Pulse Oximeter Pulse Oximetry (%) 99 Oxygen Delivery Method Room Air Intake Visit Reasons: Follow up 3mo Intake Note: Patient presents for 3 months follow up. Allergies latex Allergy (Mild, Verified 03/16/25 10:05) Rash aspirin Allergy (Unknown, Verified 03/16/25 10:05) Rash Flu Vaccine Allergy (Unknown, Uncoded 12/08/24 10:34) Unknown HPI HPI Follow up 3mo: Details: She feels well. After sun exposure she developed pimples on her face with erythema. She has been applying a topical treatment for acne with benefit. Denies fevers, dyspnea, pleurisy, sicca symptoms, joint swelling or Raynaud's. She continues to have left hand pain, which is persistent but not as bad as it was since last visit. She has been using a wrist brace. 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 She brought in labs from her CBC from March 2025, which was normal. In the past she was treated with 4 weekly rituximab tx at [facility] in [place]. She prefers due to convenience with transportation and familiarity of center to have future treatments if needed with rituximab at [facility] in [place]. [facility] Medical History (Updated 03/20/25 @ 09:53 by Cristopher Mi MD) Systemic lupus Encounter for long-term (current) use of other medications Bilateral bunions Arthralgia Family History Father Cancer Mother Osteoporosis Social History (Updated 03/16/25 @ 10:06 by ISAEL Capps) Household Members: Other Housing: House Alcohol intake: never Patient Tobacco Use Status: Never used Tobacco Physical Exam Vital Signs: Last Vital Signs Pulse 83 03/16/25 10:06 Resp 16 03/16/25 10:06 BP 120/82 03/16/25 10:06 Pulse Ox 99 03/16/25 10:06 Oxygen Delivery Method Room Air 03/16/25 10:06 BMI result Body Mass Index 27.3 Const Other: General: Comfortable CVS: RRR Respiratory: clear to auscultation bilaterally. Good respiratory effort Skin: No lesions seen MSK: Tender to palpate 1st extensor compartment left wrist. Positive Petra test. No soft tissue swelling noted. No synovitis of any joints. Normal range of motion of upper extremities and lower extremities. Assessment & Plan Assessment & Plan (1) Systemic lupus: Comment: Clinically quiescent on hydroxychloroquine. She also has history of chronic leukopenia and low C4. History of lupus nephritis since age 9 (diagnosed [facility]), presenting with discoid lupus, malar rash, ITP (treated with rituximab 4 doses weekly by [facility] Hematology 2008, March 2015 and 10/2022). Code(s): M32.9 - Systemic lupus erythematosus, unspecified Category: Medical Plan: I have ordered labs for disease and drug monitoring on high-risk medication for this visit. She will have labs every 3 months for disease and drug monitoring. I have given her lab requisition for her to do at her local lab in 3 months Continue hydroxychloroquine 300 mg daily. Eye exam 11/07/2024 reviewed: OCT and visual field test normal. 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 Patient prefers to have treatment at [facility]. Return to clinic in 6 months (2) De Quervain's tenosynovitis, left: Comment: Persistent. Code(s): M65.4 - Radial styloid tenosynovitis [de Quervain] Category: Medical Plan: OT ordered. Patient prefers to have occupational therapy local to her home Continue to wear Thumb spica splint Apply topical diclofenac gel 1% to affected area up to 4 times a day Apply ice to affected area daily Return to clinic in 6 months. If symptoms do not improve, consider cortisone injection. (3) Encounter for long-term (current) use of other medications: Code(s): Z79.899 - Other long-term (current) drug therapy Category: Medical Plan: See above Orders: Orders Alanine Aminotransferase 03/16/25 M32.9 - Systemic lupus erythematosus, unspecified Aspartate Amino Transferase 03/16/25 M32.9 - Systemic lupus erythematosus, unspecified C Reactive Protein 03/16/25 M32.9 - Systemic lupus erythematosus, unspecified Erythrocyte Sedimentation Rate 03/16/25 M32.9 - Systemic lupus erythematosus, unspecified Complement C4 03/16/25 M32.9 - Systemic lupus erythematosus, unspecified Aspartate Amino Transferase 3 Months M32.9 - Systemic lupus erythematosus, unspecified Complete Blood Count Man Dif 3 Months M32.9 - Systemic lupus erythematosus, unspecified Anti DNA DS Antibody 3 Months M32.9 - Systemic lupus erythematosus, unspecified Alanine Aminotransferase 09/12/25 M32.9 - Systemic lupus erythematosus, unspecified Alanine Aminotransferase 03/11/26 M32.9 - Systemic lupus erythematosus, unspecified Alanine Aminotransferase 09/07/26 M32.9 - Systemic lupus erythematosus, unspecified UA w Microscopic 03/16/25 M32.9 - Systemic lupus erythematosus, unspecified UA w Microscopic 09/12/25 M32.9 - Systemic lupus erythematosus, unspecified UA w Microscopic 09/07/26 M32.9 - Systemic lupus erythematosus, unspecified Protein Creatinine Ratio, Ur 03/16/25 M32.9 - Systemic lupus erythematosus, unspecified Protein Creatinine Ratio, Ur 09/12/25 M32.9 - Systemic lupus erythematosus, unspecified Protein Creatinine Ratio, Ur 09/07/26 M32.9 - Systemic lupus erythematosus, unspecified Erythrocyte Sedimentation Rate 03/16/25 M32.9 - Systemic lupus erythematosus, unspecified Erythrocyte Sedimentation Rate 03/11/26 M32.9 - Systemic lupus erythematosus, unspecified Erythrocyte Sedimentation Rate 09/07/26 M32.9 - Systemic lupus erythematosus, unspecified Creatinine 09/07/26 M32.9 - Systemic lupus erythematosus, unspecified Complete Blood Count Man Dif 09/12/25 M32.9 - Systemic lupus erythematosus, unspecified Complete Blood Count Man Dif 09/07/26 M32.9 - Systemic lupus erythematosus, unspecified Complement C4 03/16/25 M32.9 - Systemic lupus erythematosus, unspecified Complement C4 03/11/26 M32.9 - Systemic lupus erythematosus, unspecified Complement C4 09/07/26 M32.9 - Systemic lupus erythematosus, unspecified Complement C3 03/16/25 M32.9 - Systemic lupus erythematosus, unspecified Complement C3 09/12/25 M32.9 - Systemic lupus erythematosus, unspecified Complement C3 03/11/26 M32.9 - Systemic lupus erythematosus, unspecified C Reactive Protein 03/11/26 M32.9 - Systemic lupus erythematosus, unspecified C Reactive Protein 09/07/26 M32.9 - Systemic lupus erythematosus, unspecified Aspartate Amino Transferase 09/07/26 M32.9 - Systemic lupus erythematosus, unspecified OT Evaluation and Treatment 03/16/25 M65.4 - Radial styloid tenosynovitis [de Quervain] Creatinine 03/16/25 M32.9 - Systemic lupus erythematosus, unspecified UA w Microscopic 03/16/25 M32.9 - Systemic lupus erythematosus, unspecified Protein Creatinine Ratio, Ur 03/16/25 M32.9 - Systemic lupus erythematosus, unspecified Anti DNA DS Antibody 03/16/25 M32.9 - Systemic lupus erythematosus, unspecified Complement C3 03/16/25 M32.9 - Systemic lupus erythematosus, unspecified Alanine Aminotransferase 3 Months M32.9 - Systemic lupus erythematosus, unspecified Creatinine 3 Months M32.9 - Systemic lupus erythematosus, unspecified C Reactive Protein 3 Months M32.9 - Systemic lupus erythematosus, unspecified Erythrocyte Sedimentation Rate 3 Months M32.9 - Systemic lupus erythematosus, unspecified Protein Creatinine Ratio, Ur 3 Months M32.9 - Systemic lupus erythematosus, unspecified UA w Microscopic 3 Months M32.9 - Systemic lupus erythematosus, unspecified Complement C4 3 Months M32.9 - Systemic lupus erythematosus, unspecified Complement C3 3 Months M32.9 - Systemic lupus erythematosus, unspecified Alanine Aminotransferase 03/16/25 M32.9 - Systemic lupus erythematosus, unspecified UA w Microscopic 03/11/26 M32.9 - Systemic lupus erythematosus, unspecified Protein Creatinine Ratio, Ur 03/11/26 M32.9 - Systemic lupus erythematosus, unspecified Erythrocyte Sedimentation Rate 09/12/25 M32.9 - Systemic lupus erythematosus, unspecified Creatinine 03/16/25 M32.9 - Systemic lupus erythematosus, unspecified Creatinine 09/12/25 M32.9 - Systemic lupus erythematosus, unspecified Creatinine 03/11/26 M32.9 - Systemic lupus erythematosus, unspecified Complete Blood Count Man Dif 03/16/25 M32.9 - Systemic lupus erythematosus, unspecified Complete Blood Count Man Dif 03/11/26 M32.9 - Systemic lupus erythematosus, unspecified Complement C4 09/12/25 M32.9 - Systemic lupus erythematosus, unspecified Complement C3 09/07/26 M32.9 - Systemic lupus erythematosus, unspecified C Reactive Protein 03/16/25 M32.9 - Systemic lupus erythematosus, unspecified C Reactive Protein 09/12/25 M32.9 - Systemic lupus erythematosus, unspecified Aspartate Amino Transferase 03/16/25 M32.9 - Systemic lupus erythematosus, unspecified Aspartate Amino Transferase 09/12/25 M32.9 - Systemic lupus erythematosus, unspecified Aspartate Amino Transferase 03/11/26 M32.9 - Systemic lupus erythematosus, unspecified Anti DNA DS Antibody 03/16/25 M32.9 - Systemic lupus erythematosus, unspecified Anti DNA DS Antibody 09/12/25 M32.9 - Systemic lupus erythematosus, unspecified Anti DNA DS Antibody 03/11/26 M32.9 - Systemic lupus erythematosus, unspecified Anti DNA DS Antibody 09/07/26 M32.9 - Systemic lupus erythematosus, unspecified Medications: Changed From hydroxychloroquine 300 mg PO DAILY To hydroxychloroquine 300 mg (1.5 x 200 mg) PO DAILY 90 days 135 tabs 3RF Coding Level of Care Code Est Pt Level 4 (46268) Complex EM visit Add On G2211 Diagnoses Systemic lupus M32.9 De Quervain's tenosynovitis, left M65.4 Encounter for long-term (current) use of other medications Z79.899
[2025-03-16 10:06] VITALS: BP 120/82; PULSE 83; RESP 16; O2SAT 99; BMI 27.3
== END 2025-03-16 11:03 | disposition home or self-care (01) ==
LOC: HO.RHES 09:59
PROVIDERS: PCP Family Medicine; Visit Provider Internal Medicine Rheumatology
DX: M32.9 Systemic lupus erythematosus, unspecified (principal); M65.4 Radial styloid tenosynovitis [de Quervain]; Z79.899 Other long term (current) drug therapy
CPT/HCPCS: 99214

== ENCOUNTER 2025-09-26 09:58 | Outpatient (AMB) | payer OTHER, SELFPAY ==
--- NOTE | 2025-09-26 10:02 | A.OFFVIS_ITS ---
Vital Signs 09/26/25 10:03 Height 5 ft Weight 143 lb 4.807 oz BMI 28.0 BP 136/90 H Blood Pressure Location Rt brachial Position Sitting Pulse 98 Pulse Source Pulse Oximeter Pulse Oximetry (%) 98 Oxygen Delivery Method Room Air Intake Visit Reasons: 6 Months Intake Note: Patient presents for lupus follow up. Accompanied by: Self / Same As Patient Allergies latex Allergy (Mild, Verified 09/26/25 10:03) Rash aspirin Allergy (Unknown, Verified 09/26/25 10:03) Rash Flu Vaccine Allergy (Unknown, Uncoded 12/08/24 10:34) Unknown HPI HPI 6 Months: Details: Feels well. Denies fevers, oral ulcers, chest pain, dyspnea, pleurisy, urinary symptoms, Raynaud's phenomenon, rash, joint swelling. Chronic Left hip pain comes on suddently. She spoke with PCP about it in the past. She would wake up a certain way with hip pain. Completed PT. She has not been compliant with PT exercises. [facility] Medical History Systemic lupus Encounter for long-term (current) use of other medications Bilateral bunions Arthralgia Family History Father Cancer Mother Osteoporosis Social History Household Members: Other Housing: House Alcohol intake: never Patient Tobacco Use Status: Never used Tobacco Physical Exam Vital Signs: Last Vital Signs Pulse 98 09/26/25 10:03 BP 136/90 H 09/26/25 10:03 Pulse Ox 98 09/26/25 10:03 Oxygen Delivery Method Room Air 09/26/25 10:03 BMI result Body Mass Index 28.0 Assessment & Plan Assessment & Plan (1) Systemic lupus: Comment: Clinically quiescent on hydroxychloroquine. She also has history of chronic leukopenia and low C4, which has been stable. 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 Code(s): M32.9 - Systemic lupus erythematosus, unspecified Category: Medical Plan: I have ordered labs for disease and drug monitoring on high-risk medication for this visit. Due every 6 months. Monitoring platelet count with CBC is every 3 months. I am requesting last CBC. Continue hydroxychloroquine 300 mg daily. Eye exam 11/07/2024 reviewed: OCT and visual field test normal. She has an eye exam scheduled for November. She will continue to follow up with [facility] direct marketing specialist yearly for monitoring of ITP related to SLE. Patient prefers to have treatment at [facility]. I have asked her to maintain a consistent home exercise program. Goal of 30 minutes daily for next visit. She will resume hip exercises that she was given by PT in the past. Return to clinic in 6 months (2) Encounter for long-term (current) use of other medications: Code(s): Z79.899 - Other long-term (current) drug therapy Category: Medical Plan: See above Coding Level of Care Code Complex visit Add On G2211 Diagnoses Systemic lupus M32.9 Encounter for long-term (current) use of other medications Z79.899
[2025-09-26 10:03] VITALS: BP 136/90; PULSE 98; O2SAT 98; BMI 28.0
--- OUTSIDE RECORDS SUMMARY | 2025-09-26 11:57 | XMS_ITS | Encounter Summary ---
Author Organization [facility] Address [address] [place] [phone] Phone Care Team Providers Care Emergency Management Program Specialist Name Role Phone Viviana Moyer MD Primary Care Provider [phone] Alfonso Ordaz MD Unavailable [email or web address] Viviana Moyer MD Unavailable [phone] Encounter Details Date Type Department Care Team (Late st Contact Info) Description 03/22/2021 Transcribe Orders Virtual Department [address] [place] [id number] Viviana Moyer MD [address] [place] [phone] [email or web address] Syncope and collapse (Primary Dx) Social History Tobacco Use Types Packs/Day Years Used Date Smoking Tobacco: Never Assessed Comments Unknown Sex and Gender Information Value Date Recorded Sex Assigned at Not on file Legal Sex Female 10:31 PM EDT Gender Identity Not on file Sexual Orientation Not on file documented as of this encounter Plan of Treatment Not on file documented as of this encounter Visit Diagnoses Diagnosis Syncope and collapse- Primary documented in this encounter Care Teams Emergency Management Program Specialist Relationship Specialty Start Date End Date Viviana Moyer MD [email or web address] PCP - General 08/20/17 Alfonso Ordaz MD [email or web address] Historical LMR Provider 08/20/17 11/09/21 Viviana Moyer MD [email or web address] Historical LMR Provider 08/20/17 documented as of this encounter Additional Source Comments The information contained in this document represents components of the legal health record. It is not the complete legal health record.[facility]
--- OUTSIDE RECORDS SUMMARY | 2025-09-26 11:57 | XMS_ITS | Encounter Summary ---
Author Organization [facility] Address [address] [place] [address] Phone Care Team Providers Care Restaurant Associate Name Role Phone Viviana Moyer MD Primary Care Provider [phone] Alfonso Ordaz MD Unavailable [email or web address] Viviana Moyer MD Unavailable [phone] Reason for Referral * MRI/CAT Scan - Closed Specialty Diagnoses / Procedures Referred By Contac t Referred To Contact Radiology Diagnoses Pain, lumbar region Procedures MRI Lumbar Spine Franco Nix DO [email or web address] Referral ID Status Reason Start Date Expiration Date Visits Re quested Visits Authorized [id number] Closed 06/17/2019 08/15/2019 1 1 Encounter Details Date Type Department Care Team (Latest Contact Info) Description 06/20/2019 Transcribe Orders Virtual Department [address] [place] [id number] Franco Nix DO [email or web address] Pain, lumbar region (Primary Dx) Social History Tobacco Use Types Packs/Day Years Used Date Smoking Tobacco: Never Assessed Comments Unknown Sex and Gender Information Value Date Recorded Sex Assigned at Not on file Legal Sex Female 10:31 PM EDT Gender Identity Not on file Sexual Orientation Not on file documented as of this encounter Plan of Treatment Not on file documented as of this encounter Results * MRI LUMBAR SPINE (BONE) WITHOUT CONTRAST (06/26/2019 8:09 AM EDT) Anatomical Region Laterality Modality L-spine Magnetic Resonan ce 06/26/2019 5:37 PM EDT Addenda Addendum by Tim Rice MD on 07/05/2019 12:30 PM EDT Correction to number 3. of the impression: 3. 7 mm lesion within the right side of the body of T11. This could be benign, possibly an atypical hemangioma. IF THE patient is at increased risk for malignancy a nuclear medicine bone scan could be considered. Impressions 06/26/2019 5:47 PM EDT 1. Mild-moderate degenerative disc change at L4-L5. Small central disc bulge at this level with evidence of annular tear. 2. Mild facet arthropathy in the lower levels. 3. 7 mm lesion within the right side of the body of T11. This could be benign, possibly an atypical hemangioma. The patient is at increased risk for malignancy a nuclear medicine bone scan could be considered. POS - [id number] Narrative 06/26/2019 5:47 PM EDT HISTORY: Lower back and left gluteal pain after lifting injury. COMPARISON: None. TECHNIQUE: Exam performed on a 1.5 Minerva high-field MRI scanner. Sagittal T1, T2 and STIR, axial T1 and T2 sequences were obtained. FINDINGS: Conus medullaris: Normal. T12-L1: Small anterior osteophytes. Mild loss of T2 signal within the disc. Minimal bulging of the disc. L1-L2: No significant abnormalities. L2-L3: No significant abnormalities. L3-L4: No significant abnormalities. L4-L5: Loss of T2 signal within the disc. Mild-moderate disc space narrowing. Minimal degenerative endplate changes. Small central disc bulge superimposed on small posterior osteophytes. Evidence of superimposed small annular tear. Mild bilateral facet arthropathy. No central canal stenosis. Mild narrowing of the left neuroforamen. Minimal narrowing of the right neuroforamen. L5-S1: Disc height well-maintained. Minimal degenerative endplate changes. Minimal bulging the disc. Mild bilateral facet arthropathy. No central canal stenosis. Mild neuroforaminal narrowing by small disc-osteophyte complexes and mild facet arthropathy, more so on right than left. Soft tissues: No evidence of paravertebral masses. Vertebral bodies: No evidence of acute or subacute compression fractures. No subluxations. Marrow signal: 7 mm round T2, STIR hyperintense lesion within the right side of the body of T11. This is mildly hypointense on T1. Procedure Note Tim Rice MD - 06/26/2019 HISTORY: Lower back and left gluteal pain after lifting injury. COMPARISON: None. TECHNIQUE: Exam performed on a 1.5 Minerva high-field MRI scanner. SagittalT1, T2 and STIR, axial T1 and T2 sequences were obtained. FINDINGS: Conus medullaris: Normal. T12-L1: Small anterior osteophytes. Mild loss of T2 signal within thedisc. Minimal bulging of the disc. L1-L2: No significant abnormalities. L2-L3: No significant abnormalities. L3-L4: No significant abnormalities. L4-L5: Loss of T2 signal within the disc. Mild-moderate disc spacenarrowing. Minimal degenerative endplate changes. Small central discbulge superimposed on small posterior osteophytes. Evidence ofsuperimposed small annular tear. Mild bilateral facet arthropathy. Nocentral canal stenosis. Mild narrowing of the left neuroforamen. Minimalnarrowing of the right neuroforamen. L5-S1: Disc height well-maintained. Minimal degenerative endplatechanges. Minimal bulging the disc. Mild bilateral facet arthropathy. Nocentral canal stenosis. Mild neuroforaminal narrowing by smalldisc-osteophyte complexes and mild facet arthropathy, more so on rightthan left. Soft tissues: No evidence of paravertebral masses. Vertebral bodies: No evidence of acute or subacute compression fractures.No subluxations. Marrow signal: 7 mm round T2, STIR hyperintense lesion within the rightside of the body of T11. This is mildly hypointense on T1. IMPRESSION: 1. Mild-moderate degenerative disc change at L4-L5. Small central discbulge at this level with evidence of annular tear. 2. Mild facet arthropathy in the lower levels. 3. 7 mm lesion within the right side of the body of T11. This could bebenign, possibly an atypical hemangioma. The patient is at increased riskfor malignancy a nuclear medicine bone scan could be considered. POS - [id number] Franco Nix DO IMG MR XSPECIALTY Marcelino bre Result - Final documented in this encounter Visit Diagnoses Diagnosis Pain, lumbar region- Primary Lumbago Pain, lumbar region Lumbago documented in this encounter Care Teams Restaurant Associate Relationship Specialty Start Date End Date Viviana Moyer MD PCP - General 08/20/17 Alfonso Ordaz MD [email or web address] Historical LMR Provider 08/20/17 11/09/21 Viviana Moyer MD Historical LMR Provider 08/20/17 documented as of this encounter Additional Source Comments The information contained in this document represents components of the legal health record. It is not the complete legal health record.[facility]
--- OUTSIDE RECORDS SUMMARY | 2025-09-26 11:57 | XMS_ITS | Clinical Summary ---
Author Organization [facility] Address [address] [place] [address] Phone Care Team Providers Care Education Officer Name Role Phone Viviana Moyer MD Primary Care Provider Viviana Moyer MD Unavailable [phone] Allergies Active Allergy Reactions Criticality Noted Date Comments Aspirin Rash Low 11/20/2022 Latex Rash Low 11/20/2022 Citizen Of [place] Kyle Other (See Comments) Low 11/20/2022 Mouth irritation Medications Lactobacillus acidophilus Cap as needed. Orally Active hydroxychloroqui ne (PLAQUENIL) 200 mg tablet 2 tablet with food or milk Orally Once daily Active naproxen (NAPROSYN) 500 MG tablet Take 1 tablet by mouth 2 (two) times a day as needed. 06/09/2017 Active predniSONE (DELTASONE) 1 MG tablet 1 mg daily. Active cholecalciferol (VITAMIN D3) 1,000 unit tablet Take 1 tablet by mouth daily. Active buPROPion (WELLBUTRIN SR) 150 MG SR 12 hr tablet daily. Orally Active budesonide (RHINOCORT AQUA) 32 mcg/actuation nasal spray as needed. 2 puffs in each nostril Nasally Once a day Active Active Problems No known active problems Social History Tobacco Use Types Packs/Day Years Used Date Smoking Tobacco: Never Smokeless Tobacco: Never Tobacco Cessation:Counseling Given: Not Answered Alcohol Use Standard Drinks/Week Comments Yes 0 (1 standard drink = 0.6 oz pur e alcohol) very rare Education Answer Date Recorded Are you interested in more education? Not on haily e 02/27/2023 Are you concerned about learning? Not on file 02/27/2023 No 02/27/2023 No 02/27/2023 Digital Access Answer Date Recorded No 03/30/2023 No 03/30/2023 No 03/30/2023 Reliable internet access at home? Not on file 03/30/2023 Device with a working camera? Not on file Intimate Partner Violence Answer Date R ecorded Are you denied basic needs s uch as food, clothing, or medical care? No 11/20/2022 Worried food would run out Not on file 11/20 Are you denied basic needs s uch as food, clothing, or medical care? No 11/20/2022 Relationship Control Not on file 11/20/2022 Comments No Sex and Gender Information Value Date Recorded Sex Assigned at Not on file Legal Sex Female 10:31 PM EDT Gender Identity Not on file Sexual Orientation Not on file Last Filed Vital Signs Vital Sign Reading Time Taken Comments Blood Pressure 101/79 11/21/2022 11:34 AM EST Pulse 77 11/21/2022 11:34 AM EST Temperature 36 C (96.8 F) 11/21/2022 11:18 AM EST Respiratory Rate 16 11/21/2022 11:34 AM EST Oxygen Saturation 99% 11/21/2022 11:34 AM EST Inhaled Oxygen Concentration - - Weight 61.2 kg (135 lb) 11/20/2022 11:14 AM EST Height 152.4 cm (5') 11/20/2022 11:14 AM EST Body Mass Index 26.37 11/20/2022 11:14 AM EST Plan of Treatment Health Maintenance Due Date Last Done Comments LIPID PANEL 1973 DEPRESSION SCREENING 1985 HEPATITIS C SCREENING 1991 HIV ONE-TIME SCREENING (18-65 YEARS) 1991 PAP SMEAR 1994 SCREENING FOR DIABETES 02/23/2008 MAMMOGRAM 2013 COLOGUARD 2018 FIT TEST 2018 FOBT 2018 SIGMOIDOSCOPY 2018 VIRTUAL COLONOSCOPY 2018 Adult Td,Tdap Booster 12/16/2022 12/16/2012 PNEUMOCOCCAL VACCINES (50+ years) (1 of 1 - PCV) 2023 ZOSTER VACCINES (1 of 2) 2023 INFLUENZA VACCINE (#1) 2025 09/29/2017, 2009 COVID-19 VACCINE ( season) 2025 08/18/2022, 08/18/2022, 02/14/2022, Additional history exists COLONOSCOPY 11/21/2032 11/21/2022 COLORECTAL CANCER SCREENING 11/21/2032 RSV VACCINE (1 - 1-dose 75+ series) 02/23/2048 SMOKING STATUS SCREENING (Once After 26 Yrs) Completed 11/21/2022 HEPATITIS A VACCINES Aged Out No long er eligible based on patient's age to complete this topic HIB VACCINES Aged Out No longer eligi ble based on patient's age to complete this topic MENINGOCOCCAL VACCINES (ACWY) Aged Out No longer eligible based on patient's age to complete this topic MENINGOCOCCAL VACCINES (B) Aged Out N o longer eligible based on patient's age to complete this topic Medical Devices Not on file Procedures Procedure Name Priority Date/Time Associated Diagnosis Comments ENDOSCOPY, COLON 11/21/2022 10:4 5 AM EST from Last 3 Months or Most Recently Relevant to Health Maintenance Results * ENDOSCOPY, COLON (11/21/2022 10:45 AM EST) Narrative Transcriptions Kory Garg MD - 11/21/2022 10:45 AM EST [facility] Patient Name: Brionna Champion Attending MD:: KORY GARG MD Procedure Date: 11/21/2022 10:45 AM Date of : 1975 Age: 47 Admit Type: Outpatient Gender: Female Room: [place] [address] Exam Type: Colonoscopy Indications: Screening for colorectal malignant neoplasm, Thisis the patient's first colonoscopy Medications: Propofol per Anesthesia Procedure: Informed consent was obtained from the patientafter discussion of the indications, limitations, alternatives, benefits, and risks of the procedure. Risks specifically discussed include but are not limited to medication reactions, missed lesions, bleeding, perforation, or the need for emergent surgery. Throughout the procedure, the patient's blood pressure, pulse, end-tidal CO2, and oxygensaturations were monitored continuously. The Colonoscope was introduced through the anus and advanced to the terminal ileum, with identificationof the appendiceal orifice and IC valve. The terminal ileum, ileocecal valve, appendiceal orifice, and rectum were photographed. The colonoscopy was performed without difficulty. The patient tolerated the procedure well. The quality of the bowel preparation was excellent. The bowel preparationused was PEG/Miralax in Gatoraide and/or Pedialyte via split dose instruction. Complications: No immediate complications. Estimated blood loss:None. Findings: The perianal and digital rectal examinations were normal. Pertinent negatives include no palpablerectal lesions. Internal hemorrhoids were found duringretroflexion. The hemorrhoids were small. The entire examined colon appeared normal. The terminal ileum appeared normal. Retroflexion in the right colon was performed. Impression: - Internal hemorrhoids. - The entire examined colon is normal. - The examined portion of the ileum was normal. - No specimens collected. Recommendation: - Repeat colonoscopy in 10 years for screening purposes. KORY GARG MD 11/21/2022 11:17:35 AM This report has been signed electronically. Number of Addenda: 0 Note Initiated On: 11/21/2022 10:45 AM Procedure Code(s): --- Professional --- 12787, Colonoscopy, flexible; diagnostic, including collection of specimen(s) by brushing or washing, when performed (separateprocedure) --- Technical --- 92250, Colonoscopy, flexible; diagnostic, including collection of specimen(s) by brushing or washing, when performed (separateprocedure) Diagnosis Code(s): --- Professional --- Z12.11, Encounter for screening for malignantneoplasm of colon K64.8, Other hemorrhoids --- Technical --- Z12.11, Encounter for screening for malignantneoplasm of colon K64.8, Other hemorrhoids CPT copyright 2020 [employer]. All rights reserved. The codes documented in this report are preliminary and upon global supply chain director reviewmay be revised to meet current compliance requirements. Procedure Date: 11/21/2022 10:45:[address] [place] [address] Unknown Unknown MD GI PROCEDURE ORDERABLES Final Result from Last 3 Months or Most Recently Relevant to Health Maintenance Insurance [facility] Care Teams Education Officer Relationship Specialty Start Date End Date Viviana Moyer MD PCP - General 08/20/17 Viviana Moyer MD Historical LMR Provider 08/20/17 Additional Source Comments The information contained in this document represents components of the legal health record. It is not the complete legal health record.[facility]
--- OUTSIDE RECORDS SUMMARY | 2025-09-26 11:57 | XMS_ITS | Encounter Summary ---
Author Organization [facility] Address [address] [place] [address] Phone Care Team Providers Care Police Aide Name Role Phone Viviana Moyer MD Primary Care Provider [phone] Alfonso Ordaz MD Unavailable [email or web address] Viviana Moyer MD Unavailable [phone] Encounter Details Date Type Department Care Team (Late st Contact Info) Description 06/20/2019 Procedure Pass [facility], [address] [address] Social History Tobacco Use Types Packs/Day Years Used Date Smoking Tobacco: Never Assessed Comments Unknown Sex and Gender Information Value Date Recorded Sex Assigned at Not on file Legal Sex Female 10:31 PM EDT Gender Identity Not on file Sexual Orientation Not on file documented as of this encounter Last Filed Vital Signs Vital Sign Reading Time Taken Comments Blood Pressure - - Pulse - - Temperature - - Respiratory Rate - - Oxygen Saturation - - Inhaled Oxygen Concentration - - Weight 59 kg (130 lb) 06/21/2019 3:44 PM EDT Height 152.4 cm (5') 06/21/2019 3:44 PM EDT Body Mass Index 25.39 06/21/2019 3:44 PM EDT documented in this encounter Plan of Treatment Not on file documented as of this encounter Visit Diagnoses Not on filedocumented in this encounter Care Teams Police Aide Relationship Specialty Start Date End Date Viviana Moyer MD [email or web address] PCP - General 08/20/17 Alfonso Ordaz MD [email or web address] Historical LMR Provider 08/20/17 11/09/21 Viviana Moyer MD [email or web address] Historical LMR Provider 08/20/17 documented as of this encounter Additional Source Comments The information contained in this document represents components of the legal health record. It is not the complete legal health record.[facility]
--- OUTSIDE RECORDS SUMMARY | 2025-09-26 11:57 | XMS_ITS | Encounter Summary ---
Author Organization Formerly [facility] Address [address] [place] [id number] Phone Care Team Providers Care Flap Curer Name Role Phone Viviana Moyer MD Primary Care Provider [phone] Viviana Moyer MD Unavailable [phone] Encounter Details Date Type Department Care Team (Late st Contact Info) Description 11/21/2022 Procedure Pass [facility] Endoscopy Admitting Dept Virtual Department [address] [place] [id number] Social History Tobacco Use Types Packs/Day Years Used Date Smoking Tobacco: Never Smokeless Tobacco: Never Alcohol Use Standard Drinks/Week Comments Yes 0 (1 standard drink = 0.6 oz pur e alcohol) very rare Intimate Partner Violence Answer Date R ecorded [...] on filedocumented in this encounter Care Teams Flap Curer Relationship Specialty Start Date End Date Viviana Moyer MD PCP - General 08/20/17 Viviana Moyer MD [email or web address] Historical [facility] Provider 08/20/17 documented as of this encounter Additional Source Comments The information contained in this document represents components of the legal health record. It is not the complete legal health record.[facility]ly [facility]
== END 2025-09-26 10:57 | disposition home or self-care (01) ==
LOC: HO.RHES 09:59
PROVIDERS: PCP Family Medicine; Visit Provider Internal Medicine Rheumatology
DX: M32.9 Systemic lupus erythematosus, unspecified (principal); Z79.899 Other long term (current) drug therapy
CPT/HCPCS: 99214; G2211

== ENCOUNTER 2025-09-26 09:58 | Outpatient (REF) | payer OTHER, SELFPAY ==
[2025-09-26 13:08] LABS: Appearance Urine Clear; Glucose Urine UA Negative (Negative); PH 7.0 (5.0-9.0); Specific Gravity - Urine 1.010 (1.005-1.025); UMIC TRIGGER UA YES
[2025-09-26 13:53] LABS: Total Protein Urine Random < 7 mg/dL (<12)
[2025-09-26 14:58] LABS: Erythrocyte Sedimentation Rate 12 MM/HR (0-20)
[2025-09-26 19:03] LABS: Alanine Aminotransferase 40 U/L (0-31); Aspartate Amino Transferase 35 U/L (5-31); Estimated Glomerular Filt Rate > 60
== END 2025-09-26 09:59 | disposition home or self-care (01) ==
LOC: HO.HKASLDS 09:58
PROVIDERS: PCP Family Medicine; Visit Provider Internal Medicine Rheumatology
DX: M32.9 Systemic lupus erythematosus, unspecified (principal); Z79.899 Other long term (current) drug therapy; Z01.84 Encounter for antibody response examination
CPT/HCPCS: 36415; 81001; 82565; 82570; 84156; 84450; 84460; 85652; 86140; 86160; 86225